=== PATIENT | female | born 1930 | race Caucasian/White ===

== ENCOUNTER 2016-12-11 20:00 | Inpatient (IN) | payer MEDICARE ==
[~2016-12-11] VITALS: Ht 152.4 cm; Wt 51.7 kg
[~2016-12-11 20:00] MED LIST: *MAMMOGRAM; /METO5T; /METO5T PO; /MOXI40TA; /PANT40TA; /PANT40TA PO; /RISE35TA; /SUCR1TA OR; /WARF25TA; /WARF25TA PO; /WARF3TA; /WARF3TA PO; /WARF4TA; /WARF5TA; /WARF5TA OR; ACCUPRIL20 PO; ACEON; ACET65TA OR; ACTONEL35 PO; ALPR0.5T3; AMO500 PO; ASPEC325 PO; ASPI325T; ASTELIN; ASTELIN NASAL; ASTELIN NASAL SPRAY; ATEN100T; ATEN25TA; ATENOL25 PO; AVAPRO150 PO; AVAPRO75 PO; AVELOX PO; CALC500T49; CALCCHW12; CARD90TA; CIPR500T19; COLA100C2 OR; DEMA20TA; DIGO0.126; DOXYCYC100 PO; DRIS1CAP PO; DYAZIDE PO; ERYTHROOPT; FERR325T3 PO; FURO40TA2 OR; GAS-80CH PO; HCTZ50 PO; HYDR25TA6; LANO0.1211; LASI40TA; LASI40TA PO; LASI80TA OR; LEVO25TABR; LIPI20TA; LIPITOR20 PO; LOPID600 PO; MAG-TAB; MAGNESIUM OXIDE PO; NASONEX NASAL; NIAS750T3; NIASPAN500 PO; OSCAL600 PO; PHOSLO667 MG PO; POTA-77 PO; POTA10CA2 OR; POTA20TA PO; POTA20TA2; POTASSIUM; PRIL40CA OR; PROL60SO SC; SPIR50TA2 OR; SYNT50TA; SYNT50TA PO; SYNTHRO025 PO; SYNTHROI05 PO; TENO50TA; TESSALO100 PO; TORS20TA2; TRICOR160 PO; VITA100027; VITAMIN B-12 PO; XANA0.5T PO; [UNRECOGNIZED DRUG - CODE] PO; [UNRECOGNIZED DRUG - CODE] PO; astelin
[2016-12-11] MEDS ORDERED: METOCLOPRAMIDE INJ 10MG/2ML VIAL (J2765) As Ordered ONE (20:49)
[2016-12-11] MEDS ORDERED: MORPHINE 2 MG/ML 1ML SYRINGE As Ordered ONE (20:50)
[2016-12-11 21:04] LABS: BASO % 0.2 % (0.0-1.0); EOS # 0.1 K/mm3 (0.0-0.50); EOS % 0.6 % (0.0-3.0); LARGE UNSTAINED CELL # 0.1 K/mm3 (0.0-0.4); LARGE UNSTAINED CELL % 1.4 % (0.0-4.0); LYMPH # 1.4 K/mm3 (1.5-4.5); LYMPH % 13.7 % (24.0-44.0); MEAN CORPUSCULAR HGB CONC 32.9 g/dl (32.0-36.5); MEAN CORPUSCULAR VOLUME 97.2 fl (80.0-96.0); MONO # 0.4 K/mm3 (0.0-0.8); NEUTROPHILS % 80.1 % (36.0-66.0); PLATELET COUNT, AUTOMATED 293 k/mm3 (150-450); RED CELL DISTRIBUTION WIDTH 13.5 % (11.5-14.5); WHITE BLOOD COUNT 9.9 K/mm3 (4.0-10.0)
[2016-12-11 21:05] LABS: INR 3.17
[2016-12-11 21:26] LABS: ALBUMIN 4.2 GM/DL (3.2-5.2); ALBUMIN/GLOBULIN RATIO 0.76 (1.00-1.93); BILIRUBIN,DIRECT 0.2 MG/DL (0.0-0.2); BILIRUBIN,TOTAL 0.7 MG/DL (0.2-1.0); CALCIUM LEVEL 10.7 MG/DL (8.8-10.2); CREATININE FOR GFR 1.9 MG/DL (0.55-1.02); GLOMERULAR FILTRATION RATE 26.6 (>32); POTASSIUM SERUM 4.5 MEQ/L (3.5-5.1); TOTAL PROTEIN 9.7 GM/DL (6.4-8.2)
[2016-12-11] MEDS ORDERED: ONDANSETRON 4MG/2ML VIAL (J2405) As Ordered ONE (22:00)
[2016-12-11 23:53] LABS: CALCIUM LEVEL 8.8 MG/DL (8.8-10.2); CREATININE FOR GFR 1.68 MG/DL (0.55-1.02); GLOMERULAR FILTRATION RATE 30.6 (>32); POTASSIUM SERUM 4.8 MEQ/L (3.5-5.1)
[2016-12-12] MEDS ORDERED: ISOVUE-370 76% 100ML VIAL (Q9967) As Ordered ONE (00:12)
--- NOTE | 2016-12-12 02:00 | REPUSA ---
CLINICAL HISTORY: Abdominal pain. TECHNIQUE: Multiple axial, sagittal and coronal CT images were obtained through the abdomen and pelvi s after administration of oral and intravenous contrast material. Images were obtained before and aft er IV contrast administration. COMMENTS: The liver is of uniform attenuation without mass or defect. There is pneumobilia. There is mild bilia ry ductal dilatation. The spleen is normal. The gallbladder is surgically absent. The pancreas is of normal contour and attenuation characteristics. There is no evidence of adrenal mass. Bilateral renal cysts with the largest measuring 4.6 cm on the right side. Both kidneys demonstrate prompt and equal nephrograms. The kidneys are normal in size, shape and conf iguration. There is no evidence of renal or ureteral mass. No renal or ureteral calculi are identifie d. There is no hydroureter or hydronephrosis. No evidence for appendicitis. There is mild ascites. 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 There is no evidence of intrinsic or extrinsic bladder mass. Moderate partial small bowel obstruction . Swirling of the mesentery in the right lower quadrant at the level of the transition zone in the di stal ileum. Uncomplicated clonic diverticulosis. Images of the lung bases show no evidence of pleural or parenchymal mass. There are no pleural effusi ons.moderate cardiomegaly. Bilateral basilar groundglass densities of the lungs. Pacemaker wires are in good position. The bony structures are free of lytic or blastic lesions. Multilevel degenerative c hanges are seen involving the thoracolumbar spine. Scattered calcifications are seen involving the ao rta and major branches compatible with atherosclerosis. Chronic benign sacral nerve root cysts are no paulette the largest measuring 3.2 cm. IMPRESSION: Moderate partial small bowel obstruction. Transition zone at the level of the terminal ileum. Swirling of the mesentery in the right lower quadrant at the level of the transition zone in the dist al ileum. This is a nonspecific finding that can be secondary to an internal hernia. This needs a zoe gical consultation. No associated bowel perforation or pneumatosis intestinalis. Mildly dilated biliary tree. Pneumobilia. Cholecystectomy. Basilar ground glass densities of the lungs. Atelectasis verses multifocal basilar aspiration pneumon ia. Congestive heart failure. Small amount of free fluid in the pelvis. Renal cysts. 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 Thank you for your kind referral of this patient.
[2016-12-12] MEDS ORDERED: OMEP40CA2 PO (03:09)
[2016-12-12] MEDS ORDERED: WARF-60 PO (03:09)
[2016-12-12] MEDS ORDERED: POTA10CA PO (03:09)
[2016-12-12] MEDS ORDERED: SPIR50TA2 PO (03:09)
[2016-12-12] MEDS ORDERED: SYNT75TA PO (03:09)
[2016-12-12] MEDS ORDERED: WARF-58 PO (03:09)
[2016-12-12] MEDS ORDERED: VITA10002 PO (03:09)
[2016-12-12] MEDS ORDERED: CALC1TAB30 PO (03:09)
[2016-12-12] MEDS ORDERED: VITA50003 PO (03:09)
[2016-12-12] MEDS ORDERED: FURO40TA2 PO (03:09)
[2016-12-12] MEDS ORDERED: SUCR1TAB56 PO (03:09)
[2016-12-12] MEDS ORDERED: MAGN400T2 PO (03:09)
[2016-12-12] MEDS: LR 1,000 ML IV SCH ×3 (03:15→23:15)
[2016-12-12 03:22] VITALS: BP 161/75
--- NOTE | 2016-12-12 03:36 | CR.PDOC ---
[facility] Consultation Consultation CONSULTING DOCTOR: Dr. Loya REASON FOR CONSULT: Medical management HISTORY OF PRESENT ILLNESS: Patient is a 86-year-old female who presented to emergency department with complaint of abdominal pain since yesterday afternoon and vomiting since yesterday evening. Patient states that abdominal pain is located across the bottom of her abdomen. She came into the ER due to continued pain and vomiting. She denies any bright red or dark coffee-ground hematemesis. She was found to have small bowel obstruction and medical team was consulted by general surgery for medical management. ALLERGIES: None CURRENT MEDICATIONS: Calcium with vitamin D 1 tablet daily Vitamin B12 thousand micrograms by mouth daily Vitamin D 5000 units once weekly Lasix 40 mg by mouth twice a day Synthroid 75 mcg by mouth daily Magnesium oxide 400 mg by mouth daily Omeprazole 40 mg by mouth daily Potassium chloride 20 meqs by mouth twice a day Spironolactone 50 mg by mouth daily Carafate 1 g by mouth daily at bedtime, every before meals Warfarin 6 mg Friday and Friday, 3 mg Friday, , Friday, Friday, Friday PAST MEDICAL HISTORY: Atrial fibrillation, hypercholesterolemia, hypertension, CVA, congestive heart failure PAST SURGICAL HISTORY: Hysterectomy, cataract surgery, pacemaker insertion, cardiac stents SOCIAL HISTORY: Patient denies any tobacco or alcohol use REVIEW OF SYSTEMS: Constitutional: denies fevers, chills, night sweats HEENT: Head: Positive for headaches and dizziness. Eyes: denies blurry vision, double vision. Ears: Positive for chronic severe hearing loss. Nose: denies sinus pain, pressure, rhinorrhea, postnasal drip. Throat: denies sore throat, cough, difficulty swallowing Cardiovascular: denies chest discomfort/pain Respiratory: denies shortness of breath, difficulty breathing Gastrointestinal: Positive for abdominal pain, vomiting, constipation : denies dysuria, hematuria Musculoskeletal: denies muscle / joint stiffness, pain, swelling Neurological: denies numbness, tingling, paresthesias Lymphatics: denies palpable lymph nodes or swollen glands Integumentary: denies any cuts, rashes, bruises PHYSICAL EXAMINATION: Vitals: Temperature 9 7.6, pulse 78, respiratory rate 18, blood pressure 138/63 , pulse ox 95% on room air General: Patient extremely hard of hearing. She is verbal and able to answer questions appropriately. She does not appear to be in any acute distress HEENT: Head: NG tube in place, normocephalic, atraumatic.. Eyes: pupils equally reactive to light, conjunctiva are pink, sclera are nonicteric. Throat : buccal mucosa is pink and moist with no lesions in the oropharynx Respiratory: clear to auscultation bilaterally with no wheezes, rales, or rhonchi. Cardiovascular: Regular rate and rhythm. 3/6 systolic murmur best heard at left lower sternal border Abdomen: Active bowel sounds, distended, diffuse tenderness to palpation Extremities: 5/5 strength in upper and lower extremities bilaterally, no swelling in either lower extremity bilaterally Neurological: sensation intact and symmetrical in upper and lower extremities bilaterally Lymphatics: no palpable lymph nodes, swollen glands Integumentary: skin free from rashes, lesions, abrasions Vascular: pulses palpable and symmetrical in upper and lower extremities bilaterally LABORATORY DATA: CBC: White blood cells 9.9, H&H 17.5/35.1, platelets 293 Chemistry: Sodium 137, potassium 4.8, chloride 100, carbon dioxide 26, BUN 46, creatinine 1.68, glucose 129, calcium 8.8 Lactic acid: At 20:47 2.6, at 23:15 1.5, at 01:16 1.6 Coagulation: PT 32.5, INR 3.17, aPTT 51.9 RADIOLOGY: CT of abdomen and pelvis: Moderate partial small bowel obstruction with transition zone at level of terminal ileum. No associated bowel perforation or pneumatosis intestinalis. Congestive heart failure. ASSESSMENT: Patient is a 86-year-old female with small bowel obstruction seen for medical management consult, patient currently has NG tube in place. PLAN: #1: Small bowel obstruction: Plan as per Dr. Loya. #2: Atrial fibrillation: INR of 3.17, patient is nothing by mouth, hold warfarin #3: Hypertension: Patient currently nothing by mouth, patient currently normotensive. Hold antihypertensives. #4: Hypothyroidism: Patient currently nothing by mouth, order has been placed for IV levothyroxine 32.5 mg #5: Congestive heart failure: Patient currently nothing by mouth, patient currently normotensive. Hold Lasix #6: GERD: Patient nothing by mouth, order placed for IV Protonix 40 mg daily My preceptor for this patient encounter was physically present in the building during the encounter and was fully available. As needed, all aspects of the patient interview, examination, medical decision making process, and medical care plan development were reviewed and approved by the preceptor. Preceptor is aware and concurs with the plan as stated in the body of this note and will attest to such by his/her cosignature. Attending Note: I have independently examined this patient and all aspects of the exam and treatment decisions have been discussed with the resident. A member of the hospitalist staff will continue to follow this patient through discharge. Allergies Coded Allergies: No Known Allergies (Verified Allergy, Unknown, 06/05/08) Home Medications Scheduled (Calcium 500+D 500-200 mg-Unit) 1 Tab Tab 1 TAB PO DAILY (Reported) Cyanocobalamin (Vitamin B-12) 1,000 Mcg Tab 1,000 MCG PO DAILY (Reported) Ergocalciferol (Vitamin D) 50,000 Unit Cap 50,000 UNIT PO 1XWK (Reported) Furosemide (Furosemide) 40 Mg Tab 40 MG PO BID (Reported) Levothyroxine Sodium (Synthroid) 75 Mcg Tab 75 MCG PO DAILY (Reported) Magnesium Oxide (Magnesium Oxide) 400 Mg Tab 400 MG PO DAILY (Reported) Omeprazole (Omeprazole) 40 Mg Cap 40 MG PO DAILY (Reported) Potassium Chloride (Klor-Con M10) 10 Meq Tabcr 20 MEQ PO BID (Reported) Spironolactone (Spironolactone) 50 Mg Tab 50 MG PO DAILY (Reported) Sucralfate (Sucralfate) 1 Gm Tab 1 GM PO ACHS (Reported) Warfarin Sod (Warfarin Sodium) 6 Mg Tab 6 MG PO 2XW (Reported) MONDAYS AND WEDNESDAYS Warfarin Sod (Warfarin Sodium) 3 Mg Tab 3 MG PO 5XW (Reported) FRIDAY, FRIDAY, FRIDAY, FRIDAY, FRIDAY TAMIKO MACDONALD DO Dec 12, 2016 03:36 SHAGUFTA HERBERT DO Dec 12, 2016 18:50
[2016-12-12 07:48] LABS: MEAN CORPUSCULAR HEMOGLOBIN 32.6 pg (27.0-33.0); MEAN CORPUSCULAR HGB CONC 32.7 g/dl (32.0-36.5); MEAN CORPUSCULAR VOLUME 99.8 fl (80.0-96.0); WHITE BLOOD COUNT 8.2 K/mm3 (4.0-10.0)
[2016-12-12 08:00] VITALS: BP 150/70
[2016-12-12 08:57] LABS: ALBUMIN 3.3 GM/DL (3.2-5.2); ALBUMIN/GLOBULIN RATIO 0.72 (1.00-1.93); BILIRUBIN,TOTAL 0.6 MG/DL (0.2-1.0); CALCIUM LEVEL 9.6 MG/DL (8.8-10.2); CREATININE FOR GFR 1.68 MG/DL (0.55-1.02); GLOMERULAR FILTRATION RATE 30.6 (>32); POTASSIUM SERUM 4.8 MEQ/L (3.5-5.1); TOTAL PROTEIN 7.9 GM/DL (6.4-8.2)
[2016-12-12] MEDS ORDERED: WARFARIN SOD 3 MG TAB PO SCH (09:00)
[2016-12-12] MEDS: LEVOTHYROXINE 100 MCG (0.1MG) VIAL IV SCH (10:03)
[2016-12-12] MEDS: PANTOPRAZOLE 40MG INJ (PROTONIX) (C9113) IV SCH (10:03)
[2016-12-12 11:54] VITALS: BP 128/69
--- NOTE | 2016-12-12 12:32 | EDDOCDS ---
Physician Documentation [facility] Name: Alba Browning Age: 86 yrs Sex: Female : 1930 Arrival Date: 12/11/2016 Time: 20:00 Bed Admit Hold Private MD: Adrián Moser Disposition: 12/12/16 02:24 Hospitalization ordered by Stephane Loya for Inpatient Admission. Preliminary diagnosis are Other intestinal obstruction, Dehydration, Vomiting. - Bed requested for 5 [place]ondon. - Status is Inpatient Admission. deg - Condition is Stable. - Problem is new. - Symptoms have improved. Historical: - Home Meds: 1. omeprazole 40 mg Oral cpDR 1 cap once daily 2. levothyroxine 75 mcg Oral tab 1 tab once daily 3. sucralfate 1 gram Oral tab 1 tab 4 times per day 4. magnesium oxide 400 mg Oral tab 5. calcium 6. vit B 12 1,000 mcg daily 7. vit D2 1.25 mg weekly 8. spironolactone 50 mg Oral tab 1 tab once daily 9. furosemide 40 mg Oral tab 1 tab 2 times per day 10. potassium chloride 20 mEq Oral TbER 1 tab 2 times per day 11. warfarin 3 mg oral tab one 3 mg tablet friday and friday then 1.5 tabs the rest of the week - PMHx: Atrial Fib; Hypercholesterolemia; Hypertension; CVA; CHF; - PSHx: Hysterectomy; Cataract Surgery- Bilateral; Pacemaker Insertion; Cardiac stents; - Social history: Smoking status: Patient states was never smoker of tobacco. Patient is hearing impaired. - : The pt / caregiver states he / she is on anticoagulants: coumadin. Home medication list is obtained from pill bottles. - Exposure Risk Screening:: None identified. Vital Signs: 12/11 20:10 BP 172 / 81 (auto/); kas2 20:13 Pulse 86 MON; Pulse Ox 100% ; kas2 20:15 BP 172 / 81; Pulse 87; Resp 20; Temp 98.1(T); Pulse Ox 100% on R/A; Weight 51.71 kg / kas2 114 lbs; Height 5 ft. 0 in. (152.40 cm); Pain 5/10; 20:55 BP 165 / 74 (auto/); kas2 20:55 Pulse 82 MON; Pulse Ox 100% ; kas2 20:58 BP 157 / 79 (auto/); kas2 20:58 Pulse 78 MON; Pulse Ox 100% ; kas2 21:10 BP 157 / 71 (auto/); kas2 21:10 Pulse 86 MON; Pulse Ox 100% ; kas2 21:25 BP 152 / 71 (auto/); kas2 21:25 Pulse 80 MON; Pulse Ox 100% ; kas2 21:26 BP 106 / 65 (auto/); kas2 21:27 Pulse 78 MON; Pulse Ox 100% ; kas2 21:40 BP 151 / 73 (auto/); kas2 21:40 Pulse 80 MON; Pulse Ox 100% ; kas2 21:43 BP 151 / 73; Pulse 85; Resp 20; Pulse Ox 100% on R/A; Pain 2/10; kas2 21:55 BP 173 / 82 (auto/); kas2 21:55 Pulse 86 MON; Pulse Ox 99% ; kas2 22:10 BP 165 / 82 (auto/); kas2 22:10 Pulse 80 MON; Pulse Ox 99% ; kas2 22:16 BP 131 / 74 (auto/); kas2 22:17 Pulse 88 MON; Pulse Ox 97% ; kas2 22:24 Resp 20; Temp 98.0(O); Pulse Ox 100% on R/A; Pain 2/10; kas2 22:25 BP 172 / 84 (auto/); kas2 22:25 Pulse 86 MON; Pulse Ox 97% ; kas2 22:33 BP 170 / 82 (auto/); kas2 22:33 Pulse 86 MON; Pulse Ox 99% ; kas2 22:40 BP 172 / 84 (auto/); kas2 22:40 Pulse 84 MON; Pulse Ox 100% ; kas2 22:55 BP 179 / 83 (auto/); kas2 22:55 Pulse 78 MON; Pulse Ox 99% ; kas2 23:09 Pulse 82 MON; Pulse Ox 99% ; kas2 23:10 BP 171 / 82 (auto/); kas2 23:18 BP 171 / 77 (auto/); kas2 23:18 Pulse 82 MON; Pulse Ox 97% ; kas2 23:25 BP 164 / 77 (auto/); kas2 23:25 Pulse 80 MON; Pulse Ox 100% ; kas2 23:40 BP 162 / 71 (auto/); kas2 23:40 Pulse 80 MON; Pulse Ox 99% ; kas2 23:55 BP 154 / 72 (auto/); kas2 23:55 Pulse 74 MON; Pulse Ox 98% ; kas2 12/12 00:10 BP 150 / 70 (auto/); kas2 00:10 Pulse 82 MON; Pulse Ox 99% ; kas2 00:25 BP 155 / 80 (auto/); kas2 00:25 Pulse 86 MON; Pulse Ox 92% ; kas2 00:40 BP 153 / 73 (auto/); kas2 00:40 Pulse 82 MON; Pulse Ox 98% ; kas2 00:40 Resp 18; Temp 97.6(O); kas2 00:55 BP 161 / 76 (auto/); kas2 00:55 Pulse 82 MON; Pulse Ox 97% ; kas2 01:10 BP 151 / 69 (auto/); kas2 01:10 Pulse 80 MON; Pulse Ox 97% ; kas2 01:25 BP 162 / 76 (auto/); kas2 01:25 Pulse 80 MON; Pulse Ox 98% ; kas2 01:40 BP 150 / 72 (auto/); kas2 01:40 Pulse 76 MON; Pulse Ox 97% ; kas2 01:55 BP 138 / 64 (auto/); kas2 01:55 Pulse 80 MON; Pulse Ox 94% ; kas2 02:10 BP 138 / 63 (auto/); kas2 02:10 Pulse 78 MON; Pulse Ox 95% ; kas2 02:27 Resp 18; Temp 97.6(TE); Pain 0/10; kas2 12/11 20:15 Body Mass Index 22.26 (51.71 kg, 152.40 cm) [facility] MDM: 12/11 20:31 IV Saline Lock ordered. cs11 20:31 NS 0.9% 1000 ml IV at 150 mL/hr continuous ordered. cs11 20:32 morphine 2 mg IVP once ordered. cs11 20:32 Metoclopramide 10 mg IV at 40 mg/hr once over 15 mins ordered. cs11 20:33 CBC with Diff Ordered. EDMS 20:33 MED Profile Ordered. EDMS 20:33 Liver Profile Ordered. EDMS 20:33 Amylase Ordered. EDMS 20:33 Lipase Ordered. EDMS 20:33 Lactic Acid (Au tube on ice) Ordered. EDMS 20:33 Pt & Aptt Ordered. EDMS 21:04 Financial registration complete. gjb 21:13 CBC with Diff Reviewed. cs11 21:13 Pt & Aptt Reviewed. cs11 21:15 [facility] [place] was scanned into [employer] and attached to record. gjb 21:50 MED Profile Reviewed. cs11 21:50 Liver Profile Reviewed. cs11 21:50 Amylase Reviewed. cs11 21:50 Lactic Acid (Au tube on ice) Reviewed. cs11 21:50 Lipase Reviewed. cs11 21:51 NS 0.9% 1000 ml IV at bolus once ordered. cs11 21:58 Ondansetron 8 mg IVP once ordered. cs11 23:05 MED Profile Ordered. EDMS 23:05 Lactic Acid (Au tube on ice) Ordered. EDMS 0216 00:04 MED Profile Reviewed. cs11 00:04 Lactic Acid (Au tube on ice) Reviewed. cs11 00:05 NS 0.9% 500 ml IV at bolus once ordered. cs11 00:07 CT ABD & PELVIS: IV Contrast Only Ordered. EDMS 00:29 NG/OG Tube 18Fr to L.I.S. with hourly monitoring for placement ordered. cs11 02:15 BED REQUEST+ADM ordered. EDMS 02:30 Admission Orders was scanned into [employer] and attached to record. hs2 02:41 Admission Orders was scanned into [employer] and attached to record. kb5 03:05 Admission / Observation Status ordered. EDMS 03:05 NPO DIET ordered. EDMS 06:36 COMPLETE BLOOD COUNT Ordered. EDMS 06:36 COMPLETE COMPHRENSIVE METABOLI Ordered. EDMS 08:43 Admission / Observation Status ordered. EDMS Administered Medications: 12/11 20:59 Drug: NS 0.9% 1000 ml [sodium chloride 0.9 % intravenous solution] Route: IV; Rate: 150 kas2 mL/hr; Site: left antecubital; 20:59 Drug: morphine 2 mg [morphine 2 mg/mL intravenous cartridge (1 mL)] Route: IVP; Site: [facility] left antecubital; 21:43 Follow up: BP 151 / 73; Pulse 85 bpm; Resp 20 bpm; Pulse Ox 100% RA; Pain 2/10 Adult; kas2 Response: No Adverse Reaction; Pain is decreased 20:59 Drug: Metoclopramide 10 mg [metoclopramide 5 mg/mL injection solution] Route: IV; Rate: kas2 40 mg/hr; Infused Over: 15 mins; Site: left antecubital; 21:56 Drug: NS 0.9% 1000 ml [sodium chloride 0.9 % intravenous solution] Route: IV; Rate: kas2 bolus; Site: left antecubital; 23:17 Follow up: IV Status: Completed infusion; IV Intake: 1000ml kas2 22:06 Drug: Ondansetron 8 mg [ondansetron HCl 2 mg/mL intravenous solution (3.75 mL)] Route: kas2 IVP; Site: left antecubital; 12/12 00:26 Drug: NS 0.9% 500 ml [sodium chloride 0.9 % intravenous solution] Route: IV; Rate: kas2 bolus; Site: left antecubital; 03:21 Follow up: IV Status: Completed infusion; IV Intake: 500ml kas2 Signatures: Dispatcher [employer] EDMS Mara Green, Vp [employer] [place] Unit deg Rm Mendoza, NATURAL RESOURCES MANAGER NATURAL RESOURCES MANAGER kb5 Cristian Ramirez, DO cs11 Nitza Schneider b Joya Foster, Reg Reg hs2 Ayana Urias RN RN [facility] Ray Braun RN RN The chart was reviewed and I authenticate all verbal orders and agree with the evaluation and treatment provided.Attachments: 12/11 21:15 [facility] Payment Agreement [facility] 12/12 02:30 Admission Orders hs2 02:41 Admission Orders kb5 MTDD
--- NOTE | 2016-12-12 12:32 | EDDOCDS ---
Nurse's Notes [facility] Name: Alba Browning Age: 86 yrs Sex: Female : 1930 Arrival Date: 12/11/2016 Time: 20:00 Bed Admit Hold Private MD: Adrián Moser Diagnosis: Other intestinal obstruction;Dehydration;Vomiting Presentation: 12/11 20:02 Presenting complaint: EMS states: Patient complaining of abdominal pain with vomiting kas2 since this morning. Loose stools since this morning. Denies chest pain or shortness of breath. FSBS 122 mg/dL. Adult Sepsis Screening: The patient does not have new or worsening altered mentation. Patient's respiratory rate is less than 22. Systolic blood pressure is greater than 100. Patient has a qSOFA score of 0- Negative Sepsis Screen. Suicide/Homicide risk assessment- the patient denies having any suicidal and/or homicidal ideations and does not present with any other emotional, behavioral or mental health complaints. Status: Patient is not a service desk lead or dependent. Transition of care: patient was not received from another setting of care. 20:02 Acuity: CHELSIE Level 3 kas2 20:02 Method Of Arrival: Ambulance [facility] Triage Assessment: 20:15 General: Appears in no apparent distress, comfortable, well nourished, well groomed, kas2 Behavior is appropriate for age, cooperative. Pain: Location: abdomen Pain currently is 5 out of 10 on a pain scale. Neurological: Level of Consciousness is awake, alert, Oriented to person, place, time. Cardiovascular: Capillary refill is > 3 seconds Heart tones S1 S2 present Rhythm is Chest pain is denied. Respiratory: Airway is patent Respiratory effort is even, unlabored, Respiratory pattern is regular, symmetrical, Breath sounds are diminished bilaterally. GI: Abdomen is distended, Bowel sounds hypoactive in right upper quadrant, left upper quadrant, right lower quadrant and left lower quadrant Abd is tender to palpation X 4 quads. Reports nausea, vomiting. Derm: Skin is intact, Skin is dry, Skin is pink, warm & dry. Skin temperature is warm. Historical: - Home Meds: 1. omeprazole 40 mg Oral cpDR 1 cap once daily 2. levothyroxine 75 mcg Oral tab 1 tab once daily 3. sucralfate 1 gram Oral tab 1 tab 4 times per day 4. magnesium oxide 400 mg Oral tab 5. calcium 6. vit B 12 1,000 mcg daily 7. vit D2 1.25 mg weekly 8. spironolactone 50 mg Oral tab 1 tab once daily 9. furosemide 40 mg Oral tab 1 tab 2 times per day 10. potassium chloride 20 mEq Oral TbER 1 tab 2 times per day 11. warfarin 3 mg oral tab one 3 mg tablet friday and friday then 1.5 tabs the rest of the week - PMHx: Atrial Fib; Hypercholesterolemia; Hypertension; CVA; CHF; - PSHx: Hysterectomy; Cataract Surgery- Bilateral; Pacemaker Insertion; Cardiac stents; - Social history: Smoking status: Patient states was never smoker of tobacco. Patient is hearing impaired. - : The pt / caregiver states he / she is on anticoagulants: coumadin. Home medication list is obtained from pill bottles. - Exposure Risk Screening:: None identified. Screenin:19 Screening information is obtained from the patient. Fall risk: At risk due to age. kas2 Assistance ADL's: requires no assistance with activities of daily living. Abuse/DV Screen: The patient / caregiver reports he/she is: not in a situation that causes fear, pain or injury. Nutritional screening: No deficits noted. Advance Directives: Currently, there is a health care proxy, Massiel Wen. There is no active DNR order. There is no living will. There is no Power of Hair Assistant. home support is adequate. Assessment: 20:19 General: See triage note.. kas2 21:30 General: Appears in no apparent distress, comfortable, Behavior is appropriate for age, kas2 cooperative. Pain: Location: left lower quadrant and right lower quadrant and left upper quadrant and right upper quadrant Pain currently is 2 out of 10 on a pain scale. Neurological: Level of Consciousness is awake, alert, Oriented to person, place, time. Cardiovascular: Rhythm is sinus rhythm No ectopy. Respiratory: Airway is patent Respiratory effort is even, unlabored, Respiratory pattern is regular, symmetrical. Derm: Skin is intact, Skin is dry, Skin is pink, warm & dry. Skin temperature is warm. 21:55 General: Patient vomited small amount of bile like emesis. States abdominal pain is kas2 2/10. Dr. Ramirez aware.. 23:17 General: Appears in no apparent distress, comfortable, Behavior is appropriate for age, kas2 cooperative. Pain: Denies pain. Neurological: Level of Consciousness is awake, alert, Oriented to person, place, time. Cardiovascular: Rhythm is sinus rhythm No ectopy. Respiratory: Airway is patent Respiratory effort is even, unlabored, Respiratory pattern is regular, symmetrical. Derm: Skin is intact, Skin is dry, Skin is pink, warm & dry. Skin temperature is warm. 12/12 00:26 General: Appears in no apparent distress, comfortable, Behavior is appropriate for age, kas2 cooperative. Pain: Location: left lower quadrant and right lower quadrant and left upper quadrant and right upper quadrant Pain currently is 3 out of 10 on a pain scale. Neurological: Level of Consciousness is awake, alert, Oriented to person, place, time. Cardiovascular: Rhythm is sinus rhythm No ectopy. Respiratory: Airway is patent Respiratory effort is even, unlabored, Respiratory pattern is regular, symmetrical. Derm: Skin is intact, Skin is dry, Skin is pink, warm & dry. Skin temperature is warm. 01:28 General: Patient laying in bed with family at bedside. No apparent distress noted. kas2 Appears comfortable. Airway patent and respiratory even and unlabored. Call marques within reach. Will continue to monitor.. 02:26 General: Appears in no apparent distress, comfortable, Behavior is appropriate for age, kas2 cooperative. Pain: Denies pain. Neurological: Level of Consciousness is awake, alert, Oriented to person, place, time. Cardiovascular: Rhythm is sinus rhythm No ectopy. Respiratory: Airway is patent Respiratory effort is even, unlabored, Respiratory pattern is regular, symmetrical. Derm: Skin is intact, Skin is dry, Skin is pink, warm & dry. Skin temperature is warm. 03:20 General: Verbal report given to Ayana Danielle RN. Patient moved to Room 21.. kas2 Vital Signs: 12/11 20:10 BP 172 / 81 (auto/); kas2 20:13 Pulse 86 MON; Pulse Ox 100% ; kas2 20:15 BP 172 / 81; Pulse 87; Resp 20; Temp 98.1(T); Pulse Ox 100% on R/A; Weight 51.71 kg; kas2 Height 5 ft. 0 in. (152.40 cm); Pain 5/10; 20:55 BP 165 / 74 (auto/); kas2 20:55 Pulse 82 MON; Pulse Ox 100% ; kas2 20:58 BP 157 / 79 (auto/); kas2 20:58 Pulse 78 MON; Pulse Ox 100% ; kas2 21:10 BP 157 / 71 (auto/); kas2 21:10 Pulse 86 MON; Pulse Ox 100% ; kas2 21:25 BP 152 / 71 (auto/); kas2 21:25 Pulse 80 MON; Pulse Ox 100% ; kas2 21:26 BP 106 / 65 (auto/); kas2 21:27 Pulse 78 MON; Pulse Ox 100% ; kas2 21:40 BP 151 / 73 (auto/); kas2 21:40 Pulse 80 MON; Pulse Ox 100% ; kas2 21:43 BP 151 / 73; Pulse 85; Resp 20; Pulse Ox 100% on R/A; Pain 2/10; kas2 21:55 BP 173 / 82 (auto/); kas2 21:55 Pulse 86 MON; Pulse Ox 99% ; kas2 22:10 BP 165 / 82 (auto/); kas2 22:10 Pulse 80 MON; Pulse Ox 99% ; kas2 22:16 BP 131 / 74 (auto/); kas2 22:17 Pulse 88 MON; Pulse Ox 97% ; kas2 22:24 Resp 20; Temp 98.0(O); Pulse Ox 100% on R/A; Pain 2/10; kas2 22:25 BP 172 / 84 (auto/); kas2 22:25 Pulse 86 MON; Pulse Ox 97% ; kas2 22:33 BP 170 / 82 (auto/); kas2 22:33 Pulse 86 MON; Pulse Ox 99% ; kas2 22:40 BP 172 / 84 (auto/); kas2 22:40 Pulse 84 MON; Pulse Ox 100% ; kas2 22:55 BP 179 / 83 (auto/); kas2 22:55 Pulse 78 MON; Pulse Ox 99% ; kas2 23:09 Pulse 82 MON; Pulse Ox 99% ; kas2 23:10 BP 171 / 82 (auto/); kas2 23:18 BP 171 / 77 (auto/); kas2 23:18 Pulse 82 MON; Pulse Ox 97% ; kas2 23:25 BP 164 / 77 (auto/); kas2 23:25 Pulse 80 MON; Pulse Ox 100% ; kas2 23:40 BP 162 / 71 (auto/); kas2 23:40 Pulse 80 MON; Pulse Ox 99% ; kas2 23:55 BP 154 / 72 (auto/); kas2 23:55 Pulse 74 MON; Pulse Ox 98% ; kas2 02 00:10 BP 150 / 70 (auto/); kas2 00:10 Pulse 82 MON; Pulse Ox 99% ; kas2 00:25 BP 155 / 80 (auto/); kas2 00:25 Pulse 86 MON; Pulse Ox 92% ; kas2 00:40 BP 153 / 73 (auto/); kas2 00:40 Pulse 82 MON; Pulse Ox 98% ; kas2 00:40 Resp 18; Temp 97.6(O); kas2 00:55 BP 161 / 76 (auto/); kas2 00:55 Pulse 82 MON; Pulse Ox 97% ; kas2 01:10 BP 151 / 69 (auto/); kas2 01:10 Pulse 80 MON; Pulse Ox 97% ; kas2 01:25 BP 162 / 76 (auto/); kas2 01:25 Pulse 80 MON; Pulse Ox 98% ; kas2 01:40 BP 150 / 72 (auto/); kas2 01:40 Pulse 76 MON; Pulse Ox 97% ; kas2 01:55 BP 138 / 64 (auto/); kas2 01:55 Pulse 80 MON; Pulse Ox 94% ; kas2 02:10 BP 138 / 63 (auto/); kas2 02:10 Pulse 78 MON; Pulse Ox 95% ; kas2 02:27 Resp 18; Temp 97.6(TE); Pain 0/10; kas2 12/11 20:15 Body Mass Index 22.26 (51.71 kg, 152.40 cm) [facility] Vitals: 12/11 20:15 Log In Time N/A - ambulance arrival. [facility] ED Course: 20:01 Patient visited by Rm Mendoza PCA. kb5 20:01 Adrián Moser MD is Private Physician. kb5 20:01 Ayana UriasRN is Primary Nurse. kb5 20:01 Patient moved to Waiting kb5 20:01 Patient moved to 9 kb5 20:06 Triage Initiated kas2 20:12 Cristian Ramirez DO is Attending Physician. cs11 20:12 Patient visited by Cristian Ramirez DO. cs11 20:20 Patient visited by Ayana Urias RN. [facility] 20:50 property assessment monitor on. Pulse ox on. NIBP on. kas2 21:02 Inserted saline lock: 20 gauge in left antecubital area and blood collected. The kas2 patient tolerated the procedure well. No procedures done that require assistance. 21:10 Patient visited by Ayana Urias RN. kas2 21:15 [facility] Payment Agreement was scanned into [employer] and attached to record. gjb 21:45 Patient visited by Ayana Urias RN. kas2 22:20 Patient visited by Ayana Urias RN. kas2 22:24 Patient visited by Ayana Urias RN. kas2 23:02 Patient visited by Ayana Urias RN. kas2 23:17 Lactic Acid (Au tube on ice) Sent. kas2 23:17 MED Profile Sent. kas2 23:20 Patient visited by Ayana Urias RN. kas2 23:50 Patient visited by Ayana Urias RN. [facility] 0216 00:27 Patient visited by Ayana Urias RN. kas2 01:00 Patient visited by Ayana Urias RN. [facility] 01:27 NGT inserted 14 Fr. via right nare. Placement verified. Returned gastric contents. to [facility] intermittent suction. Returned gastric contents. Patient tolerated well. 01:30 Patient visited by Ayana Urias RN. kas2 02:07 Patient visited by Ayana Urias RN. [facility] 02:23 Stephane Loya DO is Hospitalizing Provider. cs11 02:30 Admission Orders was scanned into [employer] and attached to record. hs2 02:31 CT ABD & PELVIS: IV Contrast Only Returned. EDMS 02:41 Admission Orders was scanned into [employer] and attached to record. kb5 03:21 Patient visited by Ayana Urias RN. kas2 03:21 Patient moved to 21 kas2 06:14 Patient moved to Admit Hold sls1 07:24 Primary Nurse role handed off by Ayana Urias RN mcp Administered Medications: 12/11 20:59 Drug: NS 0.9% 1000 ml [sodium chloride 0.9 % intravenous solution] Route: IV; Rate: 150 kas2 mL/hr; Site: left antecubital; 20:59 Drug: morphine 2 mg [morphine 2 mg/mL intravenous cartridge (1 mL)] Route: IVP; Site: [facility] left antecubital; 21:43 Follow up: BP 151 / 73; Pulse 85 bpm; Resp 20 bpm; Pulse Ox 100% RA; Pain 2/10 Adult; kas2 Response: No Adverse Reaction; Pain is decreased 20:59 Drug: Metoclopramide 10 mg [metoclopramide 5 mg/mL injection solution] Route: IV; Rate: kas2 40 mg/hr; Infused Over: 15 mins; Site: left antecubital; 21:56 Drug: NS 0.9% 1000 ml [sodium chloride 0.9 % intravenous solution] Route: IV; Rate: kas2 bolus; Site: left antecubital; 23:17 Follow up: IV Status: Completed infusion; IV Intake: 1000ml kas2 22:06 Drug: Ondansetron 8 mg [ondansetron HCl 2 mg/mL intravenous solution (3.75 mL)] Route: kas2 IVP; Site: left antecubital; 12/12 00:26 Drug: NS 0.9% 500 ml [sodium chloride 0.9 % intravenous solution] Route: IV; Rate: kas2 bolus; Site: left antecubital; 03:21 Follow up: IV Status: Completed infusion; IV Intake: 500ml kas2 Intake: 12/11 23:17 IV: 1000.00ml; Total: 1000.00ml. kas2 12/12 03:21 IV: 500.00ml; Total: 1500.00ml. kas2 Output: 03:20 Gastric: 600.00ml; Total: 600.00ml. kas2 Order Results: Lab Order: CBC with Diff; SPEC'M 12/11/16 20:47 Test: WHITE BLOOD COUNT; Value: 9.9; Range: 4.0-10.0; Units: K/mm3; Status: F Test: RED BLOOD COUNT; Value: 5.47; Range: 4.00-5.40; Abnormal: Above high normal; Units: M/mm3; Status: F Test: HEMOGLOBIN; Value: 17.5; Range: 12.0-16.0; Abnormal: Above high normal; Units: g/dl; Status: F Test: HEMATOCRIT; Value: 53.1; Range: 36.0-47.0; Abnormal: Above high normal; Units: %; Status: F Test: MEAN CORPUSCULAR VOLUME; Value: 97.2; Range: 80.0-96.0; Abnormal: Above high normal; Units: fl; Status: F Test: MEAN CORPUSCULAR HEMOGLOBIN; Value: 32.0; Range: 27.0-33.0; Units: pg; Status: F Test: MEAN CORPUSCULAR HGB CONC; Value: 32.9; Range: 32.0-36.5; Units: g/dl; Status: F Test: RED CELL DISTRIBUTION WIDTH; Value: 13.5; Range: 11.5-14.5; Units: %; Status: F Test: PLATELET COUNT, AUTOMATED; Value: 293; Range: 150-450; Units: k/mm3; Status: F Test: NEUTROPHILS %; Value: 80.1; Range: 36.0-66.0; Abnormal: Above high normal; Units: %; Status: F Test: LYMPH %; Value: 13.7; Range: 24.0-44.0; Abnormal: Below low normal; Units: %; Status: F Test: MONO %; Value: 4.0; Range: 0.0-5.0; Units: %; Status: F Test: EOS %; Value: 0.6; Range: 0.0-3.0; Units: %; Status: F Test: BASO %; Value: 0.2; Range: 0.0-1.0; Units: %; Status: F Test: LARGE UNSTAINED CELL %; Value: 1.4; Range: 0.0-4.0; Units: %; Status: F Test: NEUTROPHILS #; Value: 8.0; Range: 1.8-7.7; Abnormal: Above high normal; Units: K/mm3; Status: F Test: LYMPH #; Value: 1.4; Range: 1.5-4.5; Abnormal: Below low normal; Units: K/mm3; Status: F Test: MONO #; Value: 0.4; Range: 0.0-0.8; Units: K/mm3; Status: F Test: EOS #; Value: 0.1; Range: 0.0-0.50; Units: K/mm3; Status: F Test: BASO #; Value: 0.0; Range: 0.0-0.2; Units: K/mm3; Status: F Test: LARGE UNSTAINED CELL #; Value: 0.1; Range: 0.0-0.4; Units: K/mm3; Status: F Lab Order: MED Profile; SPEC'M 12/11/16 20:47 Test: GLUCOSE, FASTING; Value: 140; Range: 83-110; Abnormal: Above high normal; Units: MG/DL; Status: F Test: BLOOD UREA NITROGEN; Value: 45; Range: 7-18; Abnormal: Above high normal; Units: MG/DL; Status: F Test: CREATININE FOR GFR; Value: 1.90; Range: 0.55-1.02; Abnormal: Above high normal; Units: MG/DL; Status: F Test: GLOMERULAR FILTRATION RATE; Value: 26.6; Range: >32; Abnormal: Below low normal; Status: F Test: SODIUM LEVEL; Value: 133; Range: 136-145; Abnormal: Below low normal; Units: MEQ/L; Status: F Test: POTASSIUM SERUM; Value: 4.5; Range: 3.5-5.1; Units: MEQ/L; Status: F Test: CHLORIDE LEVEL; Value: 93; Range: 98-107; Abnormal: Below low normal; Units: MEQ/L; Status: F Test: CARBON DIOXIDE LEVEL; Value: 28; Range: 21-32; Units: MEQ/L; Status: F Test: ANION GAP; Value: 12; Range: 8-16; Units: MEQ/L; Status: F Test: CALCIUM LEVEL; Value: 10.7; Range: 8.8-10.2; Abnormal: Above high normal; Units: MG/DL; Status: F Test Note: ; Units are mL/min/1.73 m2 Chronic Kidney Disease Staging per NKF: Stage I & II GFR >=60 Normal to Mildly Decreased Stage III GFR 30-59 Moderately Decreased Stage IV GFR 15-29 Severely Decreased Stage V GFR <15 Very Little GFR Left ESRD GFR <15 on LASTING FLOORWORKER Lab Order: Liver Profile; SPEC'M 12/11/16 20:47 Test: AST/SGOT; Value: 22; Range: 15-37; Units: U/L; Status: F Test: ALT/SGPT; Value: 23; Range: 12-78; Units: U/L; Status: F Test: ALKALINE PHOSPHATASE; Value: 205; Range: 45-117; Abnormal: Above high normal; Units: U/L; Status: F Test: BILIRUBIN,TOTAL; Value: 0.7; Range: 0.2-1.0; Units: MG/DL; Status: F Test: BILIRUBIN,DIRECT; Value: 0.2; Range: 0.0-0.2; Units: MG/DL; Status: F Test: TOTAL PROTEIN; Value: 9.7; Range: 6.4-8.2; Abnormal: Above high normal; Units: GM/DL; Status: F Test: ALBUMIN; Value: 4.2; Range: 3.2-5.2; Units: GM/DL; Status: F Test: ALBUMIN/GLOBULIN RATIO; Value: 0.76; Range: 1.00-1.93; Abnormal: Below low normal; Status: F Lab Order: Amylase; [facility] 12/11/16 20:47 Test: AMYLASE; Value: 117; Range: 25-115; Abnormal: Above high normal; Units: U/L; Status: F Lab Order: Lipase; [facility] 12/11/16 20:47 Test: LIPASE; Value: 184; Range: 73-393; Units: U/L; Status: F Lab Order: Lactic Acid (Au tube on ice); [facility] 12/11/16 20:47 Test: LACTIC ACID SEPSIS PROTOCOL; Value: 2.6; Range: 0.4-2.0; Abnormal: Above upper panic limits; Units: MMOL/L; Status: F Lab Order: Pt & Aptt; [facility] 12/11/16 20:47 Test: PROTHROMBIN TIME; Value: 32.5; Range: 12.3-14.5; Abnormal: Above high normal; Units: SECONDS; Status: F Test: INR; Value: 3.17; Status: F Test: PARTIAL THROMBOPLASTIN TIME; Value: 51.9; Range: 26.6-37.1; Abnormal: Above high normal; Units: SECONDS; Status: F Test Note: ; THERAPUTIC HUMAN INR VALUES INDICATIONS NORMAL RANGES PROPHYLAXIS/TREATMENT OF: VENOUS THROMBOSIS 2.0-3.0 PULMONARY EMBOLISM 2.0-3.0 PREVENTION OF SYSTEMIC EMBOLISM FROM: TISSUE HEART VALVES 2.0-3.0 ACUTE MYOCARDIAL INFARCTION 2.0-3.0 VALVULAR HEART DISEASE 2.0-3.0 ATRIAL FIBRILLATION 2.0-3.0 MECHANICAL VALVES(HIGH RISK) 2.5-3.5 RECURRENT MYOCARDIAL INFARCTION 2.5-3.5 Lab Order: MED Profile; [facility] 23:15 Test: GLUCOSE, FASTING; Value: 129; Range: 83-110; Abnormal: Above high normal; Units: MG/DL; Status: F Test: BLOOD UREA NITROGEN; Value: 46; Range: 7-18; Abnormal: Above high normal; Units: MG/DL; Status: F Test: CREATININE FOR GFR; Value: 1.68; Range: 0.55-1.02; Abnormal: Above high normal; Units: MG/DL; Status: F Test: GLOMERULAR FILTRATION RATE; Value: 30.6; Range: >32; Abnormal: Below low normal; Status: F Test: SODIUM LEVEL; Value: 137; Range: 136-145; Units: MEQ/L; Status: F Test: POTASSIUM SERUM; Value: 4.8; Range: 3.5-5.1; Units: MEQ/L; Status: F Test: CHLORIDE LEVEL; Value: 100; Range: 98-107; Units: MEQ/L; Status: F Test: CARBON DIOXIDE LEVEL; Value: 26; Range: 21-32; Units: MEQ/L; Status: F Test: ANION GAP; Value: 11; Range: 8-16; Units: MEQ/L; Status: F Test: CALCIUM LEVEL; Value: 8.8; Range: 8.8-10.2; Abnormal: Delta; Units: MG/DL; Status: F Test Note: ; Units are mL/min/1.73 m2 Chronic Kidney Disease Staging per NKF: Stage I & II GFR >=60 Normal to Mildly Decreased Stage III GFR 30-59 Moderately Decreased Stage IV GFR 15-29 Severely Decreased Stage V GFR <15 Very Little GFR Left ESRD GFR <15 on LASTING FLOORWORKER Lab Order: Lactic Acid (Au tube on ice); [facility] 23:15 Test: LACTIC ACID SEPSIS PROTOCOL; Value: 1.5; Range: 0.4-2.0; Units: MMOL/L; Status: F Lab Order: COMPLETE BLOOD COUNT; [facility]12/[facility] 07:29 Test: WHITE BLOOD COUNT; Value: 8.2; Range: 4.0-10.0; Units: K/mm3; Status: F Test: RED BLOOD COUNT; Value: 4.76; Range: 4.00-5.40; Units: M/mm3; Status: F Test: HEMOGLOBIN; Value: 15.5; Range: 12.0-16.0; Abnormal: Delta; Units: g/dl; Status: F Test: HEMATOCRIT; Value: 47.5; Range: 36.0-47.0; Abnormal: Above high normal; Units: %; Status: F Test: MEAN CORPUSCULAR VOLUME; Value: 99.8; Range: 80.0-96.0; Abnormal: Above high normal; Units: fl; Status: F Test: MEAN CORPUSCULAR HEMOGLOBIN; Value: 32.6; Range: 27.0-33.0; Units: pg; Status: F Test: MEAN CORPUSCULAR HGB CONC; Value: 32.7; Range: 32.0-36.5; Units: g/dl; Status: F Test: RED CELL DISTRIBUTION WIDTH; Value: 14.0; Range: 11.5-14.5; Units: %; Status: F Test: PLATELET COUNT, AUTOMATED; Value: 221; Range: 150-450; Units: k/mm3; Status: F Lab Order: COMPLETE COMPHRENSIVE METABOLI; SPEC'M 12/12/16 07:29 Test: GLUCOSE, FASTING; Value: 127; Range: 83-110; Abnormal: Above high normal; Units: MG/DL; Status: F Test: BLOOD UREA NITROGEN; Value: 44; Range: 7-18; Abnormal: Above high normal; Units: MG/DL; Status: F Test: CREATININE FOR GFR; Value: 1.68; Range: 0.55-1.02; Abnormal: Above high normal; Units: MG/DL; Status: F Test: GLOMERULAR FILTRATION RATE; Value: 30.6; Range: >32; Abnormal: Below low normal; Status: F Test: SODIUM LEVEL; Value: 139; Range: 136-145; Units: MEQ/L; Status: F Test: POTASSIUM SERUM; Value: 4.8; Range: 3.5-5.1; Units: MEQ/L; Status: F Test: CHLORIDE LEVEL; Value: 102; Range: 98-107; Units: MEQ/L; Status: F Test: CARBON DIOXIDE LEVEL; Value: 24; Range: 21-32; Units: MEQ/L; Status: F Test: ANION GAP; Value: 13; Range: 8-16; Units: MEQ/L; Status: F Test: CALCIUM LEVEL; Value: 9.6; Range: 8.8-10.2; Units: MG/DL; Status: F Test: AST/SGOT; Value: 19; Range: 15-37; Units: U/L; Status: F Test: ALT/SGPT; Value: 18; Range: 12-78; Units: U/L; Status: F Test: ALKALINE PHOSPHATASE; Value: 159; Range: 45-117; Abnormal: Above high normal; Units: U/L; Status: F Test: BILIRUBIN,TOTAL; Value: 0.6; Range: 0.2-1.0; Units: MG/DL; Status: F Test: TOTAL PROTEIN; Value: 7.9; Range: 6.4-8.2; Units: GM/DL; Status: F Test: ALBUMIN; Value: 3.3; Range: 3.2-5.2; Abnormal: Delta; Units: GM/DL; Status: F Test: ALBUMIN/GLOBULIN RATIO; Value: 0.72; Range: 1.00-1.93; Abnormal: Below low normal; Status: F Test Note: ; Units are mL/min/1.73 m2 Chronic Kidney Disease Staging per NKF: Stage I & II GFR >=60 Normal to Mildly Decreased Stage III GFR 30-59 Moderately Decreased Stage IV GFR 15-29 Severely Decreased Stage V GFR <15 Very Little GFR Left ESRD GFR <15 on LASTING FLOORWORKER Radiology Order: CT ABD & PELVIS: IV Contrast Only Test: CT ABD & PELVIS: IV Contrast Only REASON FOR EXAMINATION: Abdomen Pain; ; CLINICAL HISTORY: Abdominal pain.; TECHNIQUE: Multiple axial, sagittal and coronal CT images were obtained through the abdomen and pelvi; s after administration of oral and intravenous contrast material. Images were obtained before and aft; er IV contrast administration.; COMMENTS:; The liver is of uniform attenuation without mass or defect. There is pneumobilia. There is mild bilia; ry ductal dilatation. The spleen is normal. The gallbladder is surgically absent. The pancreas is of; normal contour and attenuation characteristics. There is no evidence of adrenal mass.; Bilateral renal cysts with the largest measuring 4.6 cm on the right side.; Both kidneys demonstrate prompt and equal nephrograms. The kidneys are normal in size, shape and conf; iguration. There is no evidence of renal or ureteral mass. No renal or ureteral calculi are identifie; d. There is no hydroureter or hydronephrosis.; No evidence for appendicitis. There is mild ascites. Uncomplicated calcified aneurysm of the splenic; artery measuring 1.9 cm.; There is no evidence of intrinsic or extrinsic bladder mass. Moderate partial small bowel obstruction; . Swirling of the mesentery in the right lower quadrant at the level of the transition zone in the di; stal ileum. Uncomplicated clonic diverticulosis.; Images of the lung bases show no evidence of pleural or parenchymal mass. There are no pleural effusi; ons.moderate cardiomegaly. Bilateral basilar groundglass densities of the lungs. Pacemaker wires are; in good position. The bony structures are free of lytic or blastic lesions. Multilevel degenerative c; hanges are seen involving the thoracolumbar spine. Scattered calcifications are seen involving the ao; rta and major branches compatible with atherosclerosis. Chronic benign sacral nerve root cysts are no; paulette the largest measuring 3.2 cm.; IMPRESSION:; Moderate partial small bowel obstruction. Transition zone at the level of the terminal ileum.; Swirling of the mesentery in the right lower quadrant at the level of the transition zone in the dist; al ileum. This is a nonspecific finding that can be secondary to an internal hernia. This needs a zoe; gical consultation.; No associated bowel perforation or pneumatosis intestinalis.; Mildly dilated biliary tree.; Pneumobilia.; Cholecystectomy.; Basilar ground glass densities of the lungs. 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 cs11 12:31 Patient left the ED. deg Signatures: Dispatcher [employer] EDMS Mara Green, Pipeline Inspector Unit deg Mary Alfaro RN Rm Guerra mcp, DEEJAY PMO MANAGER [id number] Brittney Martinez RN RN sls1 Cristian Ramirez DO DO cs11 Nitza Schneider Hillary, Reg Reg hs2 Ayana Urias,RN RN kas2 MTDD
[2016-12-12 14:00] VITALS: BP 158/72
--- NOTE | 2016-12-12 15:05 | HPE ---
DATE OF ADMISSION: 12/12/2016 CHIEF COMPLAINT: Abdominal pain and bloating. HISTORY OF PRESENT ILLNESS: The patient is an 86-year-old female who came to the emergency room with complaints of abdominal plain, distension, and vomiting that started yesterday afternoon. It got progressively worse into the evening. The pain is mainly located in her lower abdomen. She has had symptoms like this in the past and was diagnosed with a small bowel obstruction that was relieved on its own without requiring surgery. However, she has not had any problems since then. She has had multiple previous abdominal surgeries including hysterectomy but that was many years ago. No recent surgeries. She denies any fevers or chills. Her last bowel movement was yesterday morning. No flatus or bowel movement since then. No nausea or vomiting since the nasogastric (NG) tube has been placed and she has had a large amount of output already. She is very hard of hearing so the history was very difficult to obtain. PAST MEDICAL HISTORY: 1. Atrial fibrillation. 2. Hypercholesterolemia. 3. Hypertension. 4. Cerebrovascular accident (CVA). 5. Congestive heart failure. PAST SURGICAL HISTORY: 1. Hysterectomy. 2. Cataract surgery. 3. Pacemaker. 4. Cardiac stents. SOCIAL HISTORY: Denies drug, alcohol, or tobacco abuse. FAMILY HISTORY: Noncontributory. ALLERGIES: None. HOME MEDICATIONS: Please see medical record. REVIEW OF SYSTEMS: Pertinent positives and negatives as stated in the history of present illness (HPI). PHYSICAL EXAMINATION: GENERAL: Alert and oriented times three. No acute distress. VITAL SIGNS: Temperature 99.3, pulse 86, respirations 18, blood pressure 161/75, pulse oximetry 100% on room air. HEENT: Pupils are equally round and react to light and accommodation. HEART: S1, S2, regular rate and rhythm. LUNGS: Clear auscultation bilaterally. ABDOMEN: Soft, distended, diffuse tenderness to palpation. No rebounding, guarding or rigidity. No signs of peritonitis. EXTREMITIES: No clubbing, cyanosis or edema. LABORATORY DATA: White count 9.9 down to 8.2 this morning, hemoglobin 15.5, platelets 221. INR 3.17. Lactic acid is 1.5, potassium 4.8, creatinine 1.68. IMAGING STUDIES: CT abdomen and pelvis shows a partial small bowel obstruction, transition zone at the level of the terminal ileum. There is swelling of the mesentery in the right lower quadrant at the level of the transition zone in the distal ilium. This is a nonspecific finding that can be secondary to an internal hernia and needs surgical consultation. No signs of bowel perforation or pneumatosis intestinalis and there is mildly dilated biliary tree. ASSESSMENT AND PLAN: The patient is an 86-year-old female with partial versus complete small bowel obstruction with likely transition zone in the right lower quadrant. It could be secondary to internal hernia versus adhesions from previous surgery. Currently, she is comfortable with a nasogastric (NG) tube placement. Plan is to keep her nothing by mouth, on IV fluids, antibiotics, and use NG decompression. If she does not show signs of resolution of this obstruction within the next 72 hours then she may require a diagnostic laparoscopy with possible release of adhesions versus internal hernia.
--- NOTE | 2016-12-12 17:03 | IPNPDOC ---
Subjective Date Seen The patient was seen on 12/12/16. Subjective Chief Complaint/HPI The patient is a 86-year-old female admitted with a reason for visit of Small Bowel Obstruction. Events since last encounter improved R>LLQ abdominal pain since admission, 1D sx CLINICAL ABSTRACTOR Constitutional: Denies: Chills, Fever Eyes: Denies: Pain ENT: Denies: Head Aches Pulmonary: Denies: Dyspnea Cardiovascular: Denies: Chest Pain Gastrointestinal: Reports: Abdominal Pain (RLQ), Denies: Nausea, Vomiting Genitourinary: Denies: Dysuria Hematologic: Denies: Bruising Objective Physical Examination General Exam: Positive: No Acute Distress Eye Exam: Positive: PERRLA Neck Exam: Positive: JVD (9 cm) Chest Exam: Positive: Rales (B basilar) Heart Exam: Positive: Rate Normal Abdomen Exam: Positive: BS Hypoactive (mild distension) Extremity Exam: Negative: Edema Neuro Exam: Positive: Strength at 5/5 X4 ext Psych Exam: Positive: Mental status NL Assessment /Plan Problems (1) Paroxysmal atrial fibrillation Status: Chronic Response to Treatment: Stable Problem Text: chronically VKA for anticoag/nohting for rate control 12/11/16 INR 3.2-plan + heparin gtt (2) Diastolic CHF Status: Chronic Response to Treatment: Stable Problem Text: 12/12/16 mild decompensation off HD fur 80 BID/choco 50/K 80 BID and on LR at 100 cc/H; therefore, SLIV (3) Atrial fibrillation, chronic Status: Chronic Response to Treatment: Stable Problem Text: paroxysmal (4) Small bowel obstruction Status: Acute Problem Text: continue NPO/NGT daughter, Massiel, HCP, at bedside-affirms DNR but would agree to surgery if needed 12/12/16 CT AP c/w partial SBO c transition zone at terminal ileum [place] on consult (5) CAD (coronary artery disease) Status: Chronic Response to Treatment: Stable Problem Text: No active symptoms (6) Hypothyroid Status: Chronic Response to Treatment: Stable Problem Text: 09/2016 TSH 3.8 on LT4 88 12/12 LT4 37.5 IV QD (7) CKD (chronic kidney disease) stage 3, GFR 30-59 ml/min Status: Acute Plan/VTE VTE Prophylaxis Ordered?: Yes VS, I&O, 24H, Fishbone Vital Signs/I&O Vital Signs Date Time Temp Pulse Resp B/P Pulse Ox O2 Delivery O2 Flow Rate FiO2 12/12/16 14:00 99.3 72 18 158/72 93 Room Air I&O- Last 24 Hours up to 6 AM 12/12/16 06:00 Output Total 600 ml Balance -600 ml Laboratory Data 24H LABS Laboratory Tests 2 12/11/16 20:47: Activated Partial Thromboplast Time 51.9H, Aspartate Amino Transf (AST/SGOT) 22 , Alanine Aminotransferase (ALT/SGPT) 23, Alkaline Phosphatase 205H, Total Bilirubin 0.7, Direct Bilirubin 0.2, Albumin 4.2, Albumin/Globulin Ratio 0.76L, Amylase Level 117H, Anion Gap 12, White Blood Count 9.9, Red Blood Count 5.47H, Hemoglobin 17.5H, Hematocrit 53.1H, Mean Corpuscular Volume 97.2H, Mean Corpuscular Hemoglobin 32.0, Mean Corpuscular Hemoglobin Concent 32.9, Red Cell Distribution Width 13.5, Platelet Count 293, Neutrophils (%) (Auto) 80.1H, Lymphocytes (%) (Auto) 13.7L, Monocytes (%) (Auto) 4.0, Eosinophils (%) (Auto) 0.6, Basophils (%) (Auto) 0.2, Neutrophils # (Auto) 8.0H, Lymphocytes # (Auto) 1.4L, Monocytes # (Auto) 0.4, Eosinophils # (Auto) 0.1, Basophils # (Auto) 0.0, Calcium Level 10.7H, Glomerular Filtration Rate 26.6L, Lactic Acid (Sepsis) 2.6* H, Large Unclassified Cells # 0.1, Large Unclassified Cells % 1.4, Lipase 184, Prothromb Time International Ratio 3.17, Prothrombin Time 32.5H, Total Protein 9.7H 12/11/16 23:15: Anion Gap 11, Calcium Level 8.8#, Glomerular Filtration Rate 30.6L, Lactic Acid (Sepsis) 1.5, Blood Urea Nitrogen 46H, Creatinine 1.68H, Sodium Level 137, Potassium Level 4.8, Chloride Level 100, Carbon Dioxide Level 26 12/12/16 01:16: Lactic Acid Level 1.6 12/12/16 07:29: Aspartate Amino Transf (AST/SGOT) 19, Alanine Aminotransferase (ALT/SGPT) 18, Alkaline Phosphatase 159H, Total Bilirubin 0.6, Albumin 3.3#, Albumin/Globulin Ratio 0.72L, Anion Gap 13, Calcium Level 9.6, Glomerular Filtration Rate 30.6L, Total Protein 7.9, Blood Urea Nitrogen 44H, Creatinine 1.68H, Sodium Level 139, Potassium Level 4.8, Chloride Level 102, Carbon Dioxide Level 24 CBC/BMP Laboratory Tests 12/11/16 20:47 Red Blood Count 5.47 H, Mean Corpuscular Volume 97.2 H, Mean Corpuscular Hemoglobin 32.0, Mean Corpuscular Hemoglobin Concent 32.9, Red Cell Distribution Width 13.5, Neutrophils (%) (Auto) 80.1 H, Lymphocytes (%) (Auto) 13.7 L, Monocytes (%) (Auto) 4.0, Eosinophils (%) (Auto) 0.6, Basophils (%) ( Auto) 0.2, Neutrophils # (Auto) 8.0 H, Lymphocytes # (Auto) 1.4 L, Monocytes # ( Auto) 0.4, Eosinophils # (Auto) 0.1, Basophils # (Auto) 0.0 12/11/16 23:15 Calcium Level 8.8 # 12/12/16 07:29 Red Blood Count 4.76, Mean Corpuscular Volume 99.8 H, Mean Corpuscular Hemoglobin 32.6, Mean Corpuscular Hemoglobin Concent 32.7, Red Cell Distribution Width 14.0, Calcium Level 9.6, Aspartate Amino Transf (AST/SGOT) 19 , Alanine Aminotransferase (ALT/SGPT) 18, Alkaline Phosphatase 159 H, Total Bilirubin 0.6, Total Protein 7.9, Albumin 3.3 Adrián Bermudez M.D. Dec 12, 2016 17:03
[2016-12-12 22:00] VITALS: BP 130/59
[2016-12-13 06:00] VITALS: BP 188/80
[2016-12-13 06:37] LABS: MEAN CORPUSCULAR HEMOGLOBIN 32.9 pg (27.0-33.0); MEAN CORPUSCULAR HGB CONC 32.5 g/dl (32.0-36.5); MEAN CORPUSCULAR VOLUME 101.3 fl (80.0-96.0); RED CELL DISTRIBUTION WIDTH 13.9 % (11.5-14.5); WHITE BLOOD COUNT 6.2 K/mm3 (4.0-10.0)
[2016-12-13 06:51] LABS: ALBUMIN/GLOBULIN RATIO 0.68 (1.00-1.93); BILIRUBIN,TOTAL 0.6 MG/DL (0.2-1.0); CALCIUM LEVEL 8.4 MG/DL (8.8-10.2); CREATININE FOR GFR 1.52 MG/DL (0.55-1.02); GLOMERULAR FILTRATION RATE 34.4 (>32); MAGNESIUM LEVEL 2.2 MG/DL (1.8-2.4); TOTAL PROTEIN 6.4 GM/DL (6.4-8.2)
[2016-12-13 06:56] LABS: POTASSIUM SERUM 4.3 MEQ/L (3.5-5.1)
[2016-12-13 07:00] LABS: ALBUMIN 2.6 GM/DL (3.2-5.2)
[2016-12-13] MEDS: LR 1,000 ML IV SCH ×2 (07:46→19:42)
[2016-12-13 07:49] LABS: INR 7.79
[2016-12-13] MEDS ORDERED: PHYTONADIONE 10MG/ML INJECTION (J3430) SC ONE (08:30)
[2016-12-13 08:44] LABS: INR 7.8
[2016-12-13] MEDS: LEVOTHYROXINE 100 MCG (0.1MG) VIAL IV SCH (09:13)
[2016-12-13] MEDS: PANTOPRAZOLE 40MG INJ (PROTONIX) (C9113) IV SCH (09:13)
[2016-12-13 09:32] VITALS: BP 148/72
[2016-12-13 14:00] VITALS: BP 178/77
--- NOTE | 2016-12-13 15:59 | IPNPDOC ---
Subjective Date Seen The patient was seen on 12/13/16. Subjective Chief Complaint/HPI The patient is a 86-year-old female admitted with a reason for visit of Small Bowel Obstruction. Constitutional: Denies: Chills ENT: Denies: Head Aches Pulmonary: Denies: Cough, Dyspnea Cardiovascular: Denies: Chest Pain, Palpitations Gastrointestinal: Denies: Abdominal Pain, Nausea, Vomiting Genitourinary: Denies: Dysuria Objective Physical Examination General Exam: Positive: No Acute Distress Eye Exam: Positive: PERRLA Neck Exam: Positive: JVD (9 cm) Chest Exam: Positive: Rales (B basilar) Heart Exam: Positive: Rate Normal Abdomen Exam: Positive: BS Hypoactive (mild distension) Extremity Exam: Negative: Edema Neuro Exam: Positive: Strength at 5/5 X4 ext Psych Exam: Positive: Mental status NL Assessment /Plan Problems (1) Small bowel obstruction Status: Acute Problem Text: continue NPO/NGT daughter, Massiel, HCP, at bedside-affirms DNR but would agree to surgery if needed 12/13/16 resolved abdominal pain, 1750 NGT output 12/12, repeat AXR, d/c NGT in AM if continues to improved 12/12/16 CT AP c/w partial SBO c transition zone at terminal ileum [place] on consult (2) Paroxysmal atrial fibrillation Status: Chronic Response to Treatment: Stable Problem Text: chronically VKA for anticoag/nothing for rate control 12/12/16 7.8 s abnormal bleeding/bruising/stable hgb-vit K 5 SC given 12/11/16 INR 3.2-plan + heparin gtt (3) Diastolic CHF Status: Chronic Response to Treatment: Stable Problem Text: 12/13/16 persistent mild decompensation, BNP 301, decrease LR to 50cc/H 12/12/16 mild decompensation off HD fur 80 BID/choco 50/K 80 BID and on LR at 100 cc/H; therefore, SLIV (4) Atrial fibrillation, chronic Status: Chronic Response to Treatment: Stable Problem Text: paroxysmal (5) CAD (coronary artery disease) Status: Chronic Response to Treatment: Stable Problem Text: No active symptoms (6) Hypothyroid Status: Chronic Response to Treatment: Stable Problem Text: 09/2016 TSH 3.8 on LT4 88 12/12 LT4 37.5 IV QD (7) CKD (chronic kidney disease) stage 3, GFR 30-59 ml/min Status: Chronic Response to Treatment: Stable Problem Text: stable cr/lytes baseline cr 1.5 Plan/VTE VTE Prophylaxis Ordered?: Yes VS, I&O, 24H, [place] Vital Signs/I&O Vital Signs Date Time Temp Pulse Resp B/P Pulse Ox O2 Delivery O2 Flow Rate FiO2 12/13/16 09:32 99.4 75 18 148/72 99 Room Air I&O- Last 24 Hours up to 6 AM 12/13/16 06:00 Intake Total 0 ml Output Total 1150 ml Balance -1150 ml Laboratory Data 24H LABS Laboratory Tests 2 12/13/16 06:20: Blood Urea Nitrogen 41H, Creatinine 1.52H, Sodium Level 146#H, Potassium Level 4.3, Chloride Level 107, Carbon Dioxide Level 29, Calcium Level 8.4L, Aspartate Amino Transf (AST/SGOT) 19, Alanine Aminotransferase (ALT/SGPT) 15, Alkaline Phosphatase 128H, Total Bilirubin 0.6, Total Protein 6.4, Albumin 2.6#L, Albumin /Globulin Ratio 0.68L, Anion Gap 10, B-Type Natriuretic Peptide 301H, Glomerular Filtration Rate 34.4, Magnesium Level 2.2, Prothromb Time International Ratio 7.79*H, Prothrombin Time 65.3H 12/13/16 08:07: Prothromb Time International Ratio 7.80*H, Prothrombin Time 65.3H CBC/BMP Laboratory Tests 12/13/16 06:20 Calcium Level 8.4 L, Aspartate Amino Transf (AST/SGOT) 19, Alanine Aminotransferase (ALT/SGPT) 15, Alkaline Phosphatase 128 H, Total Bilirubin 0.6 , Total Protein 6.4, Albumin 2.6 #L, Red Blood Count 4.01, Mean Corpuscular Volume 101.3 H, Mean Corpuscular Hemoglobin 32.9, Mean Corpuscular Hemoglobin Concent 32.5, Red Cell Distribution Width 13.9 Adrián Moser M.D. Dec 13, 2016 15:59
--- NOTE | 2016-12-13 16:55 | REP ---
Clinical: Abdominal distension. Bowel obstruction. Technique: Single supine view of the abdomen and pelvis. Findings: A nasogastric tube extends into the stomach with its side port at the gastroesophageal junction and may warrant advancement. The bowel gas pattern is nonspecific. Moderate fecal stasis suggested. No organomegaly. Evidence for prior cholecystectomy. 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 Skeletal structures demonstrate osteopenia and degenerative changes. Impression: Nonspecific bowel gas pattern. Nasogastric tube may warrant advancement. Signed by Roney Luz MD 12/13/2016 04:46 P
[2016-12-13 22:00] VITALS: BP 155/67
[2016-12-14 06:00] VITALS: BP 138/64
[2016-12-14 06:55] LABS: MEAN CORPUSCULAR HEMOGLOBIN 32.8 pg (27.0-33.0); MEAN CORPUSCULAR HGB CONC 32.2 g/dl (32.0-36.5); MEAN CORPUSCULAR VOLUME 101.8 fl (80.0-96.0); RED CELL DISTRIBUTION WIDTH 13.7 % (11.5-14.5); WHITE BLOOD COUNT 6.4 K/mm3 (4.0-10.0)
[2016-12-14 07:00] LABS: ALBUMIN 2.6 GM/DL (3.2-5.2); ALBUMIN/GLOBULIN RATIO 0.7 (1.00-1.93); BILIRUBIN,TOTAL 0.8 MG/DL (0.2-1.0); CALCIUM LEVEL 8.5 MG/DL (8.8-10.2); CREATININE FOR GFR 1.22 MG/DL (0.55-1.02); GLOMERULAR FILTRATION RATE 44.3 (>32); POTASSIUM SERUM 3.8 MEQ/L (3.5-5.1); TOTAL PROTEIN 6.3 GM/DL (6.4-8.2)
[2016-12-14 07:09] LABS: INR 2.08
--- NOTE | 2016-12-14 10:41 | IPNPDOC ---
Subjective Date Seen The patient was seen on 12/14/16. Subjective Chief Complaint/HPI The patient is a 86-year-old female admitted with a reason for visit of Small Bowel Obstruction. Events since last encounter NGT has been clamped. + flatus. Denies c/o. Constitutional: Denies: Chills, Fever, Night Sweats Pulmonary: Denies: Cough, Dyspnea Cardiovascular: Denies: Chest Pain, Lt Headedness, Orthopnea, Palpitations, Paroxysmal Noc. Dyspnea Gastrointestinal: Reports: Abdominal Pain, Denies: Constipation, Diarrhea, Nausea, Vomiting Psych: Reports: Mood Normal, Denies: Depression, Memory Issues Objective Physical Examination General Exam: Positive: No Acute Distress Eye Exam: Positive: PERRLA Neck Exam: Positive: JVD (9 cm) Chest Exam: Positive: Clear to auscultation Heart Exam: Positive: Rate Normal Abdomen Exam: Positive: BS Hypoactive (mild distension), Soft, Tenderness Extremity Exam: Negative: Edema Neuro Exam: Positive: Strength at 5/5 X4 ext Psych Exam: Positive: Mental status NL Assessment /Plan Problems (1) Small bowel obstruction Status: Acute Problem Text: continue NPO/NGT daughter, Massiel, HCP, at bedside-affirms DNR but would agree to surgery if needed 12/14/16: Per surgery. imaging today, advance diet as indicated. NGT clamped. + flatus 12/13/16 resolved abdominal pain, 1750 NGT output 12/12, repeat AXR, d/c NGT in AM if continues to improved 12/12/16 CT AP c/w partial SBO c transition zone at terminal ileum [place] on consult (2) Paroxysmal atrial fibrillation Status: Chronic Response to Treatment: Stable Problem Text: chronically VKA for anticoag/nothing for rate control 12/14/16: INR 2.0. Continue to HOLD Coumadin. Eval INR in am. 12/12/16 7.8 s abnormal bleeding/bruising/stable hgb-vit K 5 SC given 12/11/16 INR 3.2-plan + heparin gtt (3) Diastolic CHF Status: Chronic Response to Treatment: Stable Problem Text: 12/14/2016: LR at 50 cc/hour. NPO. Appears compensated. Cr 1.2 12/13/16 persistent mild decompensation, BNP 301, decrease LR to 50cc/H 12/12/16 mild decompensation off HD fur 80 BID/choco 50/K 80 BID and on LR at 100 cc/H; therefore, SLIV (4) Atrial fibrillation, chronic Status: Chronic Response to Treatment: Stable Problem Text: 12/14/2016: warfarin on HOLD. INR 2.0. recheck INR in am. paroxysmal (5) CAD (coronary artery disease) Status: Chronic Response to Treatment: Stable Problem Text: No active symptoms (6) Hypothyroid Status: Chronic Response to Treatment: Stable Problem Text: 09/2016 TSH 3.8 on LT4 88 12/12 LT4 37.5 IV QD (7) CKD (chronic kidney disease) stage 3, GFR 30-59 ml/min Status: Chronic Response to Treatment: Stable Problem Text: 12/14/2016: Cr. 1.2 stable cr/lytes baseline cr 1.5 Plan/VTE VTE Prophylaxis Ordered?: Yes Plan Attending Physician Note: I saw and examined this patient. The case was reviewed with the RPA. VS, [facility]s/I&O Vital Signs Date Time Temp Pulse Resp B/P Pulse Ox O2 Delivery O2 Flow Rate FiO2 12/14/16 06:00 97.6 75 20 138/64 94 Room Air I&O- Last 24 Hours up to 6 AM 12/14/16 06:00 Intake Total 1650 ml Output Total 100 ml Balance 1550 ml Laboratory Data 24H LABS Laboratory Tests 2 12/14/16 06:26: Blood Urea Nitrogen 39H, Creatinine 1.22H, Sodium Level 148H, Potassium Level 3.8, Chloride Level 112H, Carbon Dioxide Level 24, Calcium Level 8.5L, Aspartate Amino Transf (AST/SGOT) 19, Alanine Aminotransferase (ALT/SGPT) 13, Alkaline Phosphatase 124H, Total Bilirubin 0.8, Total Protein 6.3L, Albumin 2.6L , Albumin/Globulin Ratio 0.70L, Anion Gap 12, Glomerular Filtration Rate 44.3, Prothromb Time International Ratio 2.08, Prothrombin Time 23.5H CBC/BMP Laboratory Tests 12/14/16 06:26 Calcium Level 8.5 L, Aspartate Amino Transf (AST/SGOT) 19, Alanine Aminotransferase (ALT/SGPT) 13, Alkaline Phosphatase 124 H, Total Bilirubin 0.8 , Total Protein 6.3 L, Albumin 2.6 L, Red Blood Count 4.08, Mean Corpuscular Volume 101.8 H, Mean Corpuscular Hemoglobin 32.8, Mean Corpuscular Hemoglobin Concent 32.2, Red Cell Distribution Width 13.[address] [facility] Dec 14, 2016 10:41 Etienne Cardenas M.D. Dec 15, 2016 18:01
[2016-12-14] MEDS: LEVOTHYROXINE 100 MCG (0.1MG) VIAL IV SCH (10:59)
[2016-12-14] MEDS: PANTOPRAZOLE 40MG INJ (PROTONIX) (C9113) IV SCH (10:59)
--- NOTE | 2016-12-14 13:32 | EDDOCDS ---
Physician Documentation [facility] Name: Alba Browning Age: 86 yrs Sex: Female : 1930 Arrival Date: 12/11/2016 Time: 20:00 Bed Admit Hold Private MD: Adrián Moser Disposition: 12/12/16 02:24 Hospitalization ordered by Stephane Loya for Inpatient Admission. Preliminary diagnosis are Other intestinal obstruction, Dehydration, Vomiting. - Bed requested for 5 Rondon. - Status is Inpatient Admission. deg - Condition is Stable. - Problem is new. - Symptoms have improved. Historical: - Home Meds: 1. omeprazole 40 mg Oral cpDR 1 cap once daily 2. levothyroxine 75 mcg Oral tab 1 tab once daily 3. sucralfate 1 gram Oral tab 1 tab 4 times per day 4. magnesium oxide 400 mg Oral tab 5. calcium 6. vit B 12 1,000 mcg daily 7. vit D2 1.25 mg weekly 8. spironolactone 50 mg Oral tab 1 tab once daily 9. furosemide 40 mg Oral tab 1 tab 2 times per day 10. potassium chloride 20 mEq Oral TbER 1 tab 2 times per day 11. warfarin 3 mg oral tab one 3 mg tablet friday and friday then 1.5 tabs the rest of the week - PMHx: Atrial Fib; Hypercholesterolemia; Hypertension; CVA; CHF; - PSHx: Hysterectomy; Cataract Surgery- Bilateral; Pacemaker Insertion; Cardiac stents; - Social history: Smoking status: Patient states was never smoker of tobacco. Patient is hearing impaired. - : The pt / caregiver states he / she is on anticoagulants: coumadin. Home medication list is obtained from pill bottles. - Exposure Risk Screening:: None identified. Vital Signs: 12/11 20:10 BP 172 / 81 (auto/); kas2 20:13 Pulse 86 MON; Pulse Ox 100% ; kas2 20:15 BP 172 / 81; Pulse 87; Resp 20; Temp 98.1(T); Pulse Ox 100% on R/A; Weight 51.71 kg / kas2 114 lbs; Height 5 ft. 0 in. (152.40 cm); Pain 5/10; 20:55 BP 165 / 74 (auto/); kas2 20:55 Pulse 82 MON; Pulse Ox 100% ; kas2 20:58 BP 157 / 79 (auto/); kas2 20:58 Pulse 78 MON; Pulse Ox 100% ; kas2 21:10 BP 157 / 71 (auto/); kas2 21:10 Pulse 86 MON; Pulse Ox 100% ; kas2 21:25 BP 152 / 71 (auto/); kas2 21:25 Pulse 80 MON; Pulse Ox 100% ; kas2 21:26 BP 106 / 65 (auto/); kas2 21:27 Pulse 78 MON; Pulse Ox 100% ; kas2 21:40 BP 151 / 73 (auto/); kas2 21:40 Pulse 80 MON; Pulse Ox 100% ; kas2 21:43 BP 151 / 73; Pulse 85; Resp 20; Pulse Ox 100% on R/A; Pain 2/10; kas2 21:55 BP 173 / 82 (auto/); kas2 21:55 Pulse 86 MON; Pulse Ox 99% ; kas2 22:10 BP 165 / 82 (auto/); kas2 22:10 Pulse 80 MON; Pulse Ox 99% ; kas2 22:16 BP 131 / 74 (auto/); kas2 22:17 Pulse 88 MON; Pulse Ox 97% ; kas2 22:24 Resp 20; Temp 98.0(O); Pulse Ox 100% on R/A; Pain 2/10; kas2 22:25 BP 172 / 84 (auto/); kas2 22:25 Pulse 86 MON; Pulse Ox 97% ; kas2 22:33 BP 170 / 82 (auto/); kas2 22:33 Pulse 86 MON; Pulse Ox 99% ; kas2 22:40 BP 172 / 84 (auto/); kas2 22:40 Pulse 84 MON; Pulse Ox 100% ; kas2 22:55 BP 179 / 83 (auto/); kas2 22:55 Pulse 78 MON; Pulse Ox 99% ; kas2 23:09 Pulse 82 MON; Pulse Ox 99% ; kas2 23:10 BP 171 / 82 (auto/); kas2 23:18 BP 171 / 77 (auto/); kas2 23:18 Pulse 82 MON; Pulse Ox 97% ; kas2 23:25 BP 164 / 77 (auto/); kas2 23:25 Pulse 80 MON; Pulse Ox 100% ; kas2 23:40 BP 162 / 71 (auto/); kas2 23:40 Pulse 80 MON; Pulse Ox 99% ; kas2 23:55 BP 154 / 72 (auto/); kas2 23:55 Pulse 74 MON; Pulse Ox 98% ; kas2 12/12 00:10 BP 150 / 70 (auto/); kas2 00:10 Pulse 82 MON; Pulse Ox 99% ; kas2 00:25 BP 155 / 80 (auto/); kas2 00:25 Pulse 86 MON; Pulse Ox 92% ; kas2 00:40 BP 153 / 73 (auto/); kas2 00:40 Pulse 82 MON; Pulse Ox 98% ; kas2 00:40 Resp 18; Temp 97.6(O); kas2 00:55 BP 161 / 76 (auto/); kas2 00:55 Pulse 82 MON; Pulse Ox 97% ; kas2 01:10 BP 151 / 69 (auto/); kas2 01:10 Pulse 80 MON; Pulse Ox 97% ; kas2 01:25 BP 162 / 76 (auto/); kas2 01:25 Pulse 80 MON; Pulse Ox 98% ; kas2 01:40 BP 150 / 72 (auto/); kas2 01:40 Pulse 76 MON; Pulse Ox 97% ; kas2 01:55 BP 138 / 64 (auto/); kas2 01:55 Pulse 80 MON; Pulse Ox 94% ; kas2 02:10 BP 138 / 63 (auto/); kas2 02:10 Pulse 78 MON; Pulse Ox 95% ; kas2 02:27 Resp 18; Temp 97.6(TE); Pain 0/10; kas2 12/11 20:15 Body Mass Index 22.26 (51.71 kg, 152.40 cm) [facility] MDM: 12/11 20:31 IV Saline Lock ordered. cs11 20:31 NS 0.9% 1000 ml IV at 150 mL/hr continuous ordered. cs11 20:32 morphine 2 mg IVP once ordered. cs11 20:32 Metoclopramide 10 mg IV at 40 mg/hr once over 15 mins ordered. cs11 20:33 CBC with Diff Ordered. EDMS 20:33 MED Profile Ordered. EDMS 20:33 Liver Profile Ordered. EDMS 20:33 Amylase Ordered. EDMS 20:33 Lipase Ordered. EDMS 20:33 Lactic Acid (Au tube on ice) Ordered. EDMS 20:33 Pt & Aptt Ordered. EDMS 21:04 Financial registration complete. gjb 21:13 CBC with Diff Reviewed. cs11 21:13 Pt & Aptt Reviewed. cs11 21:15 [facility] Payment Agreement was scanned into [employer] and attached to record. gjb 21:50 MED Profile Reviewed. cs11 21:50 Liver Profile Reviewed. cs11 21:50 Amylase Reviewed. cs11 21:50 Lactic Acid (Au tube on ice) Reviewed. cs11 21:50 Lipase Reviewed. cs11 21:51 NS 0.9% 1000 ml IV at bolus once ordered. cs11 21:58 Ondansetron 8 mg IVP once ordered. cs11 23:05 MED Profile Ordered. EDMS 23:05 Lactic Acid (Au tube on ice) Ordered. EDMS 0216 00:04 MED Profile Reviewed. cs11 00:04 Lactic Acid (Au tube on ice) Reviewed. cs11 00:05 NS 0.9% 500 ml IV at bolus once ordered. cs11 00:07 CT ABD & PELVIS: IV Contrast Only Ordered. EDMS 00:29 NG/OG Tube 18Fr to L.I.S. with hourly monitoring for placement ordered. cs11 02:15 BED REQUEST+ADM ordered. EDMS 02:30 Admission Orders was scanned into [employer] and attached to record. hs2 02:41 Admission Orders was scanned into [employer] and attached to record. kb5 03:05 Admission / Observation Status ordered. EDMS 03:05 NPO DIET ordered. EDMS 06:36 COMPLETE BLOOD COUNT Ordered. EDMS 06:36 COMPLETE COMPHRENSIVE METABOLI Ordered. EDMS 08:43 Admission / Observation Status ordered. EDMS 15:44 T-Sheet-- Draft Copy was scanned into [employer] and attached to record. gb 15:45 Radiology Report was scanned into [employer] and attached to record. gb 15:45 Rhythm Strip was scanned into [employer] and attached to record. gb Administered Medications: 12/11 20:59 Drug: NS 0.9% 1000 ml [sodium chloride 0.9 % intravenous solution] Route: IV; Rate: 150 kas2 mL/hr; Site: left antecubital; 20:59 Drug: morphine 2 mg [morphine 2 mg/mL intravenous cartridge (1 mL)] Route: IVP; Site: kas2 left antecubital; 21:43 Follow up: BP 151 / 73; Pulse 85 bpm; Resp 20 bpm; Pulse Ox 100% RA; Pain 2/10 Adult; kas2 Response: No Adverse Reaction; Pain is decreased 20:59 Drug: Metoclopramide 10 mg [metoclopramide 5 mg/mL injection solution] Route: IV; Rate: kas2 40 mg/hr; Infused Over: 15 mins; Site: left antecubital; 21:56 Drug: NS 0.9% 1000 ml [sodium chloride 0.9 % intravenous solution] Route: IV; Rate: kas2 bolus; Site: left antecubital; 23:17 Follow up: IV Status: Completed infusion; IV Intake: 1000ml kas2 22:06 Drug: Ondansetron 8 mg [ondansetron HCl 2 mg/mL intravenous solution (3.75 mL)] Route: kas2 IVP; Site: left antecubital; 12/12 00:26 Drug: NS 0.9% 500 ml [sodium chloride 0.9 % intravenous solution] Route: IV; Rate: kas2 bolus; Site: left antecubital; 03:21 Follow up: IV Status: Completed infusion; IV Intake: 500ml kas2 Signatures: Dispatcher [employer] EDMS Mara Green, Employer Relations Representative Unit deg Dinah Quintero, Reg Reg gb Rm Mendoza, PAPER MILL SUPERVISOR PAPER MILL SUPERVISOR kb5 Cristian Ramirez, DO cs11 Nitza Schneider b Joya Foster, Reg Reg hs2 Ayana Urias RN RN kas2 Ray Braun RN RN sa The chart was reviewed and I authenticate all verbal orders and agree with the evaluation and treatment provided.Attachments: 12/11 21:15 [facility] Payment Agreement gjb 12/12 02:30 Admission Orders hs2 02:41 Admission Orders kb5 15:44 T-Sheet-- Draft Copy gb Chart Complete MTDD
--- NOTE | 2016-12-14 13:32 | EDDOCDS ---
Physician Documentation [facility] Name: Alba Browning Age: 86 yrs Sex: Female : 1930 Arrival Date: 12/11/2016 Time: 20:00 Bed Admit Hold Private MD: Adrián Moser Disposition: 12/12/16 02:24 Hospitalization ordered by Stephane Loya for Inpatient Admission. Preliminary diagnosis are Other intestinal obstruction, Dehydration, Vomiting. - Bed requested for 5 [place]ondon. - Status is Inpatient Admission. deg - Condition is Stable. - Problem is new. - Symptoms have improved. Historical: - Home Meds: 1. omeprazole 40 mg Oral cpDR 1 cap once daily 2. levothyroxine 75 mcg Oral tab 1 tab once daily 3. sucralfate 1 gram Oral tab 1 tab 4 times per day 4. magnesium oxide 400 mg Oral tab 5. calcium 6. vit B 12 1,000 mcg daily 7. vit D2 1.25 mg weekly 8. spironolactone 50 mg Oral tab 1 tab once daily 9. furosemide 40 mg Oral tab 1 tab 2 times per day 10. potassium chloride 20 mEq Oral TbER 1 tab 2 times per day 11. warfarin 3 mg oral tab one 3 mg tablet friday and friday then 1.5 tabs the rest of the week - PMHx: Atrial Fib; Hypercholesterolemia; Hypertension; CVA; CHF; - PSHx: Hysterectomy; Cataract Surgery- Bilateral; Pacemaker Insertion; Cardiac stents; - Social history: Smoking status: Patient states was never smoker of tobacco. Patient is hearing impaired. - : The pt / caregiver states he / she is on anticoagulants: coumadin. Home medication list is obtained from pill bottles. - Exposure Risk Screening:: None identified. Vital Signs: 12/11 20:10 BP 172 / 81 (auto/); kas2 20:13 Pulse 86 MON; Pulse Ox 100% ; kas2 20:15 BP 172 / 81; Pulse 87; Resp 20; Temp 98.1(T); Pulse Ox 100% on R/A; Weight 51.71 kg / kas2 114 lbs; Height 5 ft. 0 in. (152.40 cm); Pain 5/10; 20:55 BP 165 / 74 (auto/); kas2 20:55 Pulse 82 MON; Pulse Ox 100% ; kas2 20:58 BP 157 / 79 (auto/); kas2 20:58 Pulse 78 MON; Pulse Ox 100% ; kas2 21:10 BP 157 / 71 (auto/); kas2 21:10 Pulse 86 MON; Pulse Ox 100% ; kas2 21:25 BP 152 / 71 (auto/); kas2 21:25 Pulse 80 MON; Pulse Ox 100% ; kas2 21:26 BP 106 / 65 (auto/); kas2 21:27 Pulse 78 MON; Pulse Ox 100% ; kas2 21:40 BP 151 / 73 (auto/); kas2 21:40 Pulse 80 MON; Pulse Ox 100% ; kas2 21:43 BP 151 / 73; Pulse 85; Resp 20; Pulse Ox 100% on R/A; Pain 2/10; kas2 21:55 BP 173 / 82 (auto/); kas2 21:55 Pulse 86 MON; Pulse Ox 99% ; kas2 22:10 BP 165 / 82 (auto/); kas2 22:10 Pulse 80 MON; Pulse Ox 99% ; kas2 22:16 BP 131 / 74 (auto/); kas2 22:17 Pulse 88 MON; Pulse Ox 97% ; kas2 22:24 Resp 20; Temp 98.0(O); Pulse Ox 100% on R/A; Pain 2/10; kas2 22:25 BP 172 / 84 (auto/); kas2 22:25 Pulse 86 MON; Pulse Ox 97% ; kas2 22:33 BP 170 / 82 (auto/); kas2 22:33 Pulse 86 MON; Pulse Ox 99% ; kas2 22:40 BP 172 / 84 (auto/); kas2 22:40 Pulse 84 MON; Pulse Ox 100% ; kas2 22:55 BP 179 / 83 (auto/); kas2 22:55 Pulse 78 MON; Pulse Ox 99% ; kas2 23:09 Pulse 82 MON; Pulse Ox 99% ; kas2 23:10 BP 171 / 82 (auto/); kas2 23:18 BP 171 / 77 (auto/); kas2 23:18 Pulse 82 MON; Pulse Ox 97% ; kas2 23:25 BP 164 / 77 (auto/); kas2 23:25 Pulse 80 MON; Pulse Ox 100% ; kas2 23:40 BP 162 / 71 (auto/); kas2 23:40 Pulse 80 MON; Pulse Ox 99% ; kas2 23:55 BP 154 / 72 (auto/); kas2 23:55 Pulse 74 MON; Pulse Ox 98% ; kas2 12/12 00:10 BP 150 / 70 (auto/); kas2 00:10 Pulse 82 MON; Pulse Ox 99% ; kas2 00:25 BP 155 / 80 (auto/); kas2 00:25 Pulse 86 MON; Pulse Ox 92% ; kas2 00:40 BP 153 / 73 (auto/); kas2 00:40 Pulse 82 MON; Pulse Ox 98% ; kas2 00:40 Resp 18; Temp 97.6(O); kas2 00:55 BP 161 / 76 (auto/); kas2 00:55 Pulse 82 MON; Pulse Ox 97% ; kas2 01:10 BP 151 / 69 (auto/); kas2 01:10 Pulse 80 MON; Pulse Ox 97% ; kas2 01:25 BP 162 / 76 (auto/); kas2 01:25 Pulse 80 MON; Pulse Ox 98% ; kas2 01:40 BP 150 / 72 (auto/); kas2 01:40 Pulse 76 MON; Pulse Ox 97% ; kas2 01:55 BP 138 / 64 (auto/); kas2 01:55 Pulse 80 MON; Pulse Ox 94% ; kas2 02:10 BP 138 / 63 (auto/); kas2 02:10 Pulse 78 MON; Pulse Ox 95% ; kas2 02:27 Resp 18; Temp 97.6(TE); Pain 0/10; kas2 12/11 20:15 Body Mass Index 22.26 (51.71 kg, 152.40 cm) [facility] MDM: 12/11 20:31 IV Saline Lock ordered. cs11 20:31 NS 0.9% 1000 ml IV at 150 mL/hr continuous ordered. cs11 20:32 morphine 2 mg IVP once ordered. cs11 20:32 Metoclopramide 10 mg IV at 40 mg/hr once over 15 mins ordered. cs11 20:33 CBC with Diff Ordered. EDMS 20:33 MED Profile Ordered. EDMS 20:33 Liver Profile Ordered. EDMS 20:33 Amylase Ordered. EDMS 20:33 Lipase Ordered. EDMS 20:33 Lactic Acid (Au tube on ice) Ordered. EDMS 20:33 Pt & Aptt Ordered. EDMS 21:04 Financial registration complete. gjb 21:13 CBC with Diff Reviewed. cs11 21:13 Pt & Aptt Reviewed. cs11 21:15 [facility] Payment Agreement was scanned into [employer] and attached to record. gjb 21:50 MED Profile Reviewed. cs11 21:50 Liver Profile Reviewed. cs11 21:50 Amylase Reviewed. cs11 21:50 Lactic Acid (Au tube on ice) Reviewed. cs11 21:50 Lipase Reviewed. cs11 21:51 NS 0.9% 1000 ml IV at bolus once ordered. cs11 21:58 Ondansetron 8 mg IVP once ordered. cs11 23:05 MED Profile Ordered. EDMS 23:05 Lactic Acid (Au tube on ice) Ordered. EDMS 0216 00:04 MED Profile Reviewed. cs11 00:04 Lactic Acid (Au tube on ice) Reviewed. cs11 00:05 NS 0.9% 500 ml IV at bolus once ordered. cs11 00:07 CT ABD & PELVIS: IV Contrast Only Ordered. EDMS 00:29 NG/OG Tube 18Fr to L.I.S. with hourly monitoring for placement ordered. cs11 02:15 BED REQUEST+ADM ordered. EDMS 02:30 Admission Orders was scanned into [employer] and attached to record. hs2 02:41 Admission Orders was scanned into [employer] and attached to record. kb5 03:05 Admission / Observation Status ordered. EDMS 03:05 NPO DIET ordered. EDMS 06:36 COMPLETE BLOOD COUNT Ordered. EDMS 06:36 COMPLETE COMPHRENSIVE METABOLI Ordered. EDMS 08:43 Admission / Observation Status ordered. EDMS 15:44 T-Sheet-- Draft Copy was scanned into [employer] and attached to record. gb 15:45 Radiology Report was scanned into [employer] and attached to record. gb 15:45 Rhythm Strip was scanned into [employer] and attached to record. gb Administered Medications: 12/11 20:59 Drug: NS 0.9% 1000 ml [sodium chloride 0.9 % intravenous solution] Route: IV; Rate: 150 kas2 mL/hr; Site: left antecubital; 20:59 Drug: morphine 2 mg [morphine 2 mg/mL intravenous cartridge (1 mL)] Route: IVP; Site: kas2 left antecubital; 21:43 Follow up: BP 151 / 73; Pulse 85 bpm; Resp 20 bpm; Pulse Ox 100% RA; Pain 2/10 Adult; kas2 Response: No Adverse Reaction; Pain is decreased 20:59 Drug: Metoclopramide 10 mg [metoclopramide 5 mg/mL injection solution] Route: IV; Rate: kas2 40 mg/hr; Infused Over: 15 mins; Site: left antecubital; 21:56 Drug: NS 0.9% 1000 ml [sodium chloride 0.9 % intravenous solution] Route: IV; Rate: kas2 bolus; Site: left antecubital; 23:17 Follow up: IV Status: Completed infusion; IV Intake: 1000ml kas2 22:06 Drug: Ondansetron 8 mg [ondansetron HCl 2 mg/mL intravenous solution (3.75 mL)] Route: kas2 IVP; Site: left antecubital; 12/12 00:26 Drug: NS 0.9% 500 ml [sodium chloride 0.9 % intravenous solution] Route: IV; Rate: kas2 bolus; Site: left antecubital; 03:21 Follow up: IV Status: Completed infusion; IV Intake: 500ml kas2 Signatures: Dispatcher [employer] EDMS Mara Green, Shipping Clerk/Admin Unit deg Dinah Quintero, Reg Reg gb Rm Mendoza, WICKER WORKER WICKER WORKER kb5 Cristian Ramirez, DO cs11 Nitza Schneider b Joya Foster, Reg Reg hs2 Ayana Urias RN RN kas2 Ray Braun RN RN sa The chart was reviewed and I authenticate all verbal orders and agree with the evaluation and treatment provided.Attachments: 12/11 21:15 [facility] Payment Agreement gjb 12/12 02:30 Admission Orders hs2 02:41 Admission Orders kb5 15:44 T-Sheet-- Draft Copy gb Chart Complete MTDD
--- NOTE | 2016-12-14 13:32 | EDDOCDS ---
Nurse's Notes [facility] Name: Alba Browning Age: 86 yrs Sex: Female : 1930 Arrival Date: 12/11/2016 Time: 20:00 Bed Admit Hold Private MD: Adrián Moser Diagnosis: Other intestinal obstruction;Dehydration;Vomiting Presentation: 12/11 20:02 Presenting complaint: EMS states: Patient complaining of abdominal pain with vomiting kas2 since this morning. Loose stools since this morning. Denies chest pain or shortness of breath. FSBS 122 mg/dL. Adult Sepsis Screening: The patient does not have new or worsening altered mentation. Patient's respiratory rate is less than 22. Systolic blood pressure is greater than 100. Patient has a qSOFA score of 0- Negative Sepsis Screen. Suicide/Homicide risk assessment- the patient denies having any suicidal and/or homicidal ideations and does not present with any other emotional, behavioral or mental health complaints. Status: Patient is not a dining service supervisor or dependent. Transition of care: patient was not received from another setting of care. 20:02 Acuity: CHELSIE Level 3 kas2 20:02 Method Of Arrival: Ambulance [facility] Triage Assessment: 20:15 General: Appears in no apparent distress, comfortable, well nourished, well groomed, kas2 Behavior is appropriate for age, cooperative. Pain: Location: abdomen Pain currently is 5 out of 10 on a pain scale. Neurological: Level of Consciousness is awake, alert, Oriented to person, place, time. Cardiovascular: Capillary refill is > 3 seconds Heart tones S1 S2 present Rhythm is Chest pain is denied. Respiratory: Airway is patent Respiratory effort is even, unlabored, Respiratory pattern is regular, symmetrical, Breath sounds are diminished bilaterally. GI: Abdomen is distended, Bowel sounds hypoactive in right upper quadrant, left upper quadrant, right lower quadrant and left lower quadrant Abd is tender to palpation X 4 quads. Reports nausea, vomiting. Derm: Skin is intact, Skin is dry, Skin is pink, warm & dry. Skin temperature is warm. Historical: - Home Meds: 1. omeprazole 40 mg Oral cpDR 1 cap once daily 2. levothyroxine 75 mcg Oral tab 1 tab once daily 3. sucralfate 1 gram Oral tab 1 tab 4 times per day 4. magnesium oxide 400 mg Oral tab 5. calcium 6. vit B 12 1,000 mcg daily 7. vit D2 1.25 mg weekly 8. spironolactone 50 mg Oral tab 1 tab once daily 9. furosemide 40 mg Oral tab 1 tab 2 times per day 10. potassium chloride 20 mEq Oral TbER 1 tab 2 times per day 11. warfarin 3 mg oral tab one 3 mg tablet friday and friday then 1.5 tabs the rest of the week - PMHx: Atrial Fib; Hypercholesterolemia; Hypertension; CVA; CHF; - PSHx: Hysterectomy; Cataract Surgery- Bilateral; Pacemaker Insertion; Cardiac stents; - Social history: Smoking status: Patient states was never smoker of tobacco. Patient is hearing impaired. - : The pt / caregiver states he / she is on anticoagulants: coumadin. Home medication list is obtained from pill bottles. - Exposure Risk Screening:: None identified. Screenin:19 Screening information is obtained from the patient. Fall risk: At risk due to age. kas2 Assistance ADL's: requires no assistance with activities of daily living. Abuse/DV Screen: The patient / caregiver reports he/she is: not in a situation that causes fear, pain or injury. Nutritional screening: No deficits noted. Advance Directives: Currently, there is a health care proxy, Massiel Wen. There is no active DNR order. There is no living will. There is no Power of Car Sales Representative. home support is adequate. Assessment: 20:19 General: See triage note.. kas2 21:30 General: Appears in no apparent distress, comfortable, Behavior is appropriate for age, kas2 cooperative. Pain: Location: left lower quadrant and right lower quadrant and left upper quadrant and right upper quadrant Pain currently is 2 out of 10 on a pain scale. Neurological: Level of Consciousness is awake, alert, Oriented to person, place, time. Cardiovascular: Rhythm is sinus rhythm No ectopy. Respiratory: Airway is patent Respiratory effort is even, unlabored, Respiratory pattern is regular, symmetrical. Derm: Skin is intact, Skin is dry, Skin is pink, warm & dry. Skin temperature is warm. 21:55 General: Patient vomited small amount of bile like emesis. States abdominal pain is kas2 2/10. Dr. Ramirez aware.. 23:17 General: Appears in no apparent distress, comfortable, Behavior is appropriate for age, kas2 cooperative. Pain: Denies pain. Neurological: Level of Consciousness is awake, alert, Oriented to person, place, time. Cardiovascular: Rhythm is sinus rhythm No ectopy. Respiratory: Airway is patent Respiratory effort is even, unlabored, Respiratory pattern is regular, symmetrical. Derm: Skin is intact, Skin is dry, Skin is pink, warm & dry. Skin temperature is warm. 12/12 00:26 General: Appears in no apparent distress, comfortable, Behavior is appropriate for age, kas2 cooperative. Pain: Location: left lower quadrant and right lower quadrant and left upper quadrant and right upper quadrant Pain currently is 3 out of 10 on a pain scale. Neurological: Level of Consciousness is awake, alert, Oriented to person, place, time. Cardiovascular: Rhythm is sinus rhythm No ectopy. Respiratory: Airway is patent Respiratory effort is even, unlabored, Respiratory pattern is regular, symmetrical. Derm: Skin is intact, Skin is dry, Skin is pink, warm & dry. Skin temperature is warm. 01:28 General: Patient laying in bed with family at bedside. No apparent distress noted. kas2 Appears comfortable. Airway patent and respiratory even and unlabored. Call marques within reach. Will continue to monitor.. 02:26 General: Appears in no apparent distress, comfortable, Behavior is appropriate for age, kas2 cooperative. Pain: Denies pain. Neurological: Level of Consciousness is awake, alert, Oriented to person, place, time. Cardiovascular: Rhythm is sinus rhythm No ectopy. Respiratory: Airway is patent Respiratory effort is even, unlabored, Respiratory pattern is regular, symmetrical. Derm: Skin is intact, Skin is dry, Skin is pink, warm & dry. Skin temperature is warm. 03:20 General: Verbal report given to Ayana Danielle RN. Patient moved to Room 21.. kas2 Vital Signs: 12/11 20:10 BP 172 / 81 (auto/); kas2 20:13 Pulse 86 MON; Pulse Ox 100% ; kas2 20:15 BP 172 / 81; Pulse 87; Resp 20; Temp 98.1(T); Pulse Ox 100% on R/A; Weight 51.71 kg; kas2 Height 5 ft. 0 in. (152.40 cm); Pain 5/10; 20:55 BP 165 / 74 (auto/); kas2 20:55 Pulse 82 MON; Pulse Ox 100% ; kas2 20:58 BP 157 / 79 (auto/); kas2 20:58 Pulse 78 MON; Pulse Ox 100% ; kas2 21:10 BP 157 / 71 (auto/); kas2 21:10 Pulse 86 MON; Pulse Ox 100% ; kas2 21:25 BP 152 / 71 (auto/); kas2 21:25 Pulse 80 MON; Pulse Ox 100% ; kas2 21:26 BP 106 / 65 (auto/); kas2 21:27 Pulse 78 MON; Pulse Ox 100% ; kas2 21:40 BP 151 / 73 (auto/); kas2 21:40 Pulse 80 MON; Pulse Ox 100% ; kas2 21:43 BP 151 / 73; Pulse 85; Resp 20; Pulse Ox 100% on R/A; Pain 2/10; kas2 21:55 BP 173 / 82 (auto/); kas2 21:55 Pulse 86 MON; Pulse Ox 99% ; kas2 22:10 BP 165 / 82 (auto/); kas2 22:10 Pulse 80 MON; Pulse Ox 99% ; kas2 22:16 BP 131 / 74 (auto/); kas2 22:17 Pulse 88 MON; Pulse Ox 97% ; kas2 22:24 Resp 20; Temp 98.0(O); Pulse Ox 100% on R/A; Pain 2/10; kas2 22:25 BP 172 / 84 (auto/); kas2 22:25 Pulse 86 MON; Pulse Ox 97% ; kas2 22:33 BP 170 / 82 (auto/); kas2 22:33 Pulse 86 MON; Pulse Ox 99% ; kas2 22:40 BP 172 / 84 (auto/); kas2 22:40 Pulse 84 MON; Pulse Ox 100% ; kas2 22:55 BP 179 / 83 (auto/); kas2 22:55 Pulse 78 MON; Pulse Ox 99% ; kas2 23:09 Pulse 82 MON; Pulse Ox 99% ; kas2 23:10 BP 171 / 82 (auto/); kas2 23:18 BP 171 / 77 (auto/); kas2 23:18 Pulse 82 MON; Pulse Ox 97% ; kas2 23:25 BP 164 / 77 (auto/); kas2 23:25 Pulse 80 MON; Pulse Ox 100% ; kas2 23:40 BP 162 / 71 (auto/); kas2 23:40 Pulse 80 MON; Pulse Ox 99% ; kas2 23:55 BP 154 / 72 (auto/); kas2 23:55 Pulse 74 MON; Pulse Ox 98% ; kas2 02 00:10 BP 150 / 70 (auto/); kas2 00:10 Pulse 82 MON; Pulse Ox 99% ; kas2 00:25 BP 155 / 80 (auto/); kas2 00:25 Pulse 86 MON; Pulse Ox 92% ; kas2 00:40 BP 153 / 73 (auto/); kas2 00:40 Pulse 82 MON; Pulse Ox 98% ; kas2 00:40 Resp 18; Temp 97.6(O); kas2 00:55 BP 161 / 76 (auto/); kas2 00:55 Pulse 82 MON; Pulse Ox 97% ; kas2 01:10 BP 151 / 69 (auto/); kas2 01:10 Pulse 80 MON; Pulse Ox 97% ; kas2 01:25 BP 162 / 76 (auto/); kas2 01:25 Pulse 80 MON; Pulse Ox 98% ; kas2 01:40 BP 150 / 72 (auto/); kas2 01:40 Pulse 76 MON; Pulse Ox 97% ; kas2 01:55 BP 138 / 64 (auto/); kas2 01:55 Pulse 80 MON; Pulse Ox 94% ; kas2 02:10 BP 138 / 63 (auto/); kas2 02:10 Pulse 78 MON; Pulse Ox 95% ; kas2 02:27 Resp 18; Temp 97.6(TE); Pain 0/10; kas2 12/11 20:15 Body Mass Index 22.26 (51.71 kg, 152.40 cm) [facility] Vitals: 12/11 20:15 Log In Time N/A - ambulance arrival. [facility] ED Course: 20:01 Patient visited by Rm Mendoza PCA. kb5 20:01 Adrián Moser MD is Private Physician. kb5 20:01 Ayana UriasRN is Primary Nurse. kb5 20:01 Patient moved to Waiting kb5 20:01 Patient moved to 9 kb5 20:06 Triage Initiated kas2 20:12 Cristian Ramirez DO is Attending Physician. cs11 20:12 Patient visited by Cristian Ramirez DO. cs11 20:20 Patient visited by Ayana Urias RN. [facility] 20:50 awake overnight monitor on. Pulse ox on. NIBP on. kas2 21:02 Inserted saline lock: 20 gauge in left antecubital area and blood collected. The kas2 patient tolerated the procedure well. No procedures done that require assistance. 21:10 Patient visited by Ayana Urias RN. kas2 21:15 [facility] Payment Agreement was scanned into [employer] and attached to record. gjb 21:45 Patient visited by Ayana Urias RN. kas2 22:20 Patient visited by Ayana Urias RN. kas2 22:24 Patient visited by Ayana Urias RN. kas2 23:02 Patient visited by Ayana Urias RN. kas2 23:17 Lactic Acid (Au tube on ice) Sent. kas2 23:17 MED Profile Sent. kas2 23:20 Patient visited by Ayana Urias RN. kas2 23:50 Patient visited by Ayana Urias RN. [facility] 0216 00:27 Patient visited by Ayana Urias RN. kas2 01:00 Patient visited by Ayana Urias RN. [facility] 01:27 NGT inserted 14 Fr. via right nare. Placement verified. Returned gastric contents. to [facility] intermittent suction. Returned gastric contents. Patient tolerated well. 01:30 Patient visited by Ayana Urias RN. kas2 02:07 Patient visited by Ayana Urias RN. [facility] 02:23 Stephane Loya DO is Hospitalizing Provider. cs11 02:30 Admission Orders was scanned into [employer] and attached to record. hs2 02:31 CT ABD & PELVIS: IV Contrast Only Returned. EDMS 02:41 Admission Orders was scanned into [employer] and attached to record. kb5 03:21 Patient visited by Ayana Urias RN. kas2 03:21 Patient moved to 21 kas2 06:14 Patient moved to Admit Hold sls1 07:24 Primary Nurse role handed off by Ayana Urias RN mcp 15:44 T-Sheet-- Draft Copy was scanned into [employer] and attached to record. gb 15:45 Radiology Report was scanned into [employer] and attached to record. gb 15:45 Rhythm Strip was scanned into [employer] and attached to record. gb Administered Medications: 12/11 20:59 Drug: NS 0.9% 1000 ml [sodium chloride 0.9 % intravenous solution] Route: IV; Rate: 150 kas2 mL/hr; Site: left antecubital; 20:59 Drug: morphine 2 mg [morphine 2 mg/mL intravenous cartridge (1 mL)] Route: IVP; Site: kas2 left antecubital; 21:43 Follow up: BP 151 / 73; Pulse 85 bpm; Resp 20 bpm; Pulse Ox 100% RA; Pain 2/10 Adult; kas2 Response: No Adverse Reaction; Pain is decreased 20:59 Drug: Metoclopramide 10 mg [metoclopramide 5 mg/mL injection solution] Route: IV; Rate: kas2 40 mg/hr; Infused Over: 15 mins; Site: left antecubital; 21:56 Drug: NS 0.9% 1000 ml [sodium chloride 0.9 % intravenous solution] Route: IV; Rate: kas2 bolus; Site: left antecubital; 23:17 Follow up: IV Status: Completed infusion; IV Intake: 1000ml kas2 22:06 Drug: Ondansetron 8 mg [ondansetron HCl 2 mg/mL intravenous solution (3.75 mL)] Route: kas2 IVP; Site: left antecubital; 12/12 00:26 Drug: NS 0.9% 500 ml [sodium chloride 0.9 % intravenous solution] Route: IV; Rate: kas2 bolus; Site: left antecubital; 03:21 Follow up: IV Status: Completed infusion; IV Intake: 500ml kas2 Attachments: 15:45 Rhythm Strip gb Intake: 12/11 23:17 IV: 1000.00ml; Total: 1000.00ml. kas2 12/12 03:21 IV: 500.00ml; Total: 1500.00ml. kas2 Output: 03:20 Gastric: 600.00ml; Total: 600.00ml. kas2 Order Results: Lab Order: CBC with Diff; SPEC'M 12/11/16 20:47 Test: WHITE BLOOD COUNT; Value: 9.9; Range: 4.0-10.0; Units: K/mm3; Status: F Test: RED BLOOD COUNT; Value: 5.47; Range: 4.00-5.40; Abnormal: Above high normal; Units: M/mm3; Status: F Test: HEMOGLOBIN; Value: 17.5; Range: 12.0-16.0; Abnormal: Above high normal; Units: g/dl; Status: F Test: HEMATOCRIT; Value: 53.1; Range: 36.0-47.0; Abnormal: Above high normal; Units: %; Status: F Test: MEAN CORPUSCULAR VOLUME; Value: 97.2; Range: 80.0-96.0; Abnormal: Above high normal; Units: fl; Status: F Test: MEAN CORPUSCULAR HEMOGLOBIN; Value: 32.0; Range: 27.0-33.0; Units: pg; Status: F Test: MEAN CORPUSCULAR HGB CONC; Value: 32.9; Range: 32.0-36.5; Units: g/dl; Status: F Test: RED CELL DISTRIBUTION WIDTH; Value: 13.5; Range: 11.5-14.5; Units: %; Status: F Test: PLATELET COUNT, AUTOMATED; Value: 293; Range: 150-450; Units: k/mm3; Status: F Test: NEUTROPHILS %; Value: 80.1; Range: 36.0-66.0; Abnormal: Above high normal; Units: %; Status: F Test: LYMPH %; Value: 13.7; Range: 24.0-44.0; Abnormal: Below low normal; Units: %; Status: F Test: MONO %; Value: 4.0; Range: 0.0-5.0; Units: %; Status: F Test: EOS %; Value: 0.6; Range: 0.0-3.0; Units: %; Status: F Test: BASO %; Value: 0.2; Range: 0.0-1.0; Units: %; Status: F Test: LARGE UNSTAINED CELL %; Value: 1.4; Range: 0.0-4.0; Units: %; Status: F Test: NEUTROPHILS #; Value: 8.0; Range: 1.8-7.7; Abnormal: Above high normal; Units: K/mm3; Status: F Test: LYMPH #; Value: 1.4; Range: 1.5-4.5; Abnormal: Below low normal; Units: K/mm3; Status: F Test: MONO #; Value: 0.4; Range: 0.0-0.8; Units: K/mm3; Status: F Test: EOS #; Value: 0.1; Range: 0.0-0.50; Units: K/mm3; Status: F Test: BASO #; Value: 0.0; Range: 0.0-0.2; Units: K/mm3; Status: F Test: LARGE UNSTAINED CELL #; Value: 0.1; Range: 0.0-0.4; Units: K/mm3; Status: F Lab Order: MED Profile; [facility]' 12/11/16 20:47 Test: GLUCOSE, FASTING; Value: 140; Range: 83-110; Abnormal: Above high normal; Units: MG/DL; Status: F Test: BLOOD UREA NITROGEN; Value: 45; Range: 7-18; Abnormal: Above high normal; Units: MG/DL; Status: F Test: CREATININE FOR GFR; Value: 1.90; Range: 0.55-1.02; Abnormal: Above high normal; Units: MG/DL; Status: F Test: GLOMERULAR FILTRATION RATE; Value: 26.6; Range: >32; Abnormal: Below low normal; Status: F Test: SODIUM LEVEL; Value: 133; Range: 136-145; Abnormal: Below low normal; Units: MEQ/L; Status: F Test: POTASSIUM SERUM; Value: 4.5; Range: 3.5-5.1; Units: MEQ/L; Status: F Test: CHLORIDE LEVEL; Value: 93; Range: 98-107; Abnormal: Below low normal; Units: MEQ/L; Status: F Test: CARBON DIOXIDE LEVEL; Value: 28; Range: 21-32; Units: MEQ/L; Status: F Test: ANION GAP; Value: 12; Range: 8-16; Units: MEQ/L; Status: F Test: CALCIUM LEVEL; Value: 10.7; Range: 8.8-10.2; Abnormal: Above high normal; Units: MG/DL; Status: F Test Note: ; Units are mL/min/1.73 m2 Chronic Kidney Disease Staging per NKF: Stage I & II GFR >=60 Normal to Mildly Decreased Stage III GFR 30-59 Moderately Decreased Stage IV GFR 15-29 Severely Decreased Stage V GFR <15 Very Little GFR Left ESRD GFR <15 on PUBLIC SPEAKING TEACHER Lab Order: Liver Profile; SPEC' 12/11/16 20:47 Test: AST/SGOT; Value: 22; Range: 15-37; Units: U/L; Status: F Test: ALT/SGPT; Value: 23; Range: 12-78; Units: U/L; Status: F Test: ALKALINE PHOSPHATASE; Value: 205; Range: 45-117; Abnormal: Above high normal; Units: U/L; Status: F Test: BILIRUBIN,TOTAL; Value: 0.7; Range: 0.2-1.0; Units: MG/DL; Status: F Test: BILIRUBIN,DIRECT; Value: 0.2; Range: 0.0-0.2; Units: MG/DL; Status: F Test: TOTAL PROTEIN; Value: 9.7; Range: 6.4-8.2; Abnormal: Above high normal; Units: GM/DL; Status: F Test: ALBUMIN; Value: 4.2; Range: 3.2-5.2; Units: GM/DL; Status: F Test: ALBUMIN/GLOBULIN RATIO; Value: 0.76; Range: 1.00-1.93; Abnormal: Below low normal; Status: F Lab Order: Amylase; [facility] 12/11/16 20:47 Test: AMYLASE; Value: 117; Range: 25-115; Abnormal: Above high normal; Units: U/L; Status: F Lab Order: Lipase; [facility] 12/11/16 20:47 Test: LIPASE; Value: 184; Range: 73-393; Units: U/L; Status: F Lab Order: Lactic Acid (Au tube on ice); [facility] 12/11/16 20:47 Test: LACTIC ACID SEPSIS PROTOCOL; Value: 2.6; Range: 0.4-2.0; Abnormal: Above upper panic limits; Units: MMOL/L; Status: F Lab Order: Pt & Aptt; [facility] 12/11/16 20:47 Test: PROTHROMBIN TIME; Value: 32.5; Range: 12.3-14.5; Abnormal: Above high normal; Units: SECONDS; Status: F Test: INR; Value: 3.17; Status: F Test: PARTIAL THROMBOPLASTIN TIME; Value: 51.9; Range: 26.6-37.1; Abnormal: Above high normal; Units: SECONDS; Status: F Test Note: ; THERAPUTIC HUMAN INR VALUES INDICATIONS NORMAL RANGES PROPHYLAXIS/TREATMENT OF: VENOUS THROMBOSIS 2.0-3.0 PULMONARY EMBOLISM 2.0-3.0 PREVENTION OF SYSTEMIC EMBOLISM FROM: TISSUE HEART VALVES 2.0-3.0 ACUTE MYOCARDIAL INFARCTION 2.0-3.0 VALVULAR HEART DISEASE 2.0-3.0 ATRIAL FIBRILLATION 2.0-3.0 MECHANICAL VALVES(HIGH RISK) 2.5-3.5 RECURRENT MYOCARDIAL INFARCTION 2.5-3.5 Lab Order: MED Profile; SPEC'12/11/16 23:15 Test: GLUCOSE, FASTING; Value: 129; Range: 83-110; Abnormal: Above high normal; Units: MG/DL; Status: F Test: BLOOD UREA NITROGEN; Value: 46; Range: 7-18; Abnormal: Above high normal; Units: MG/DL; Status: F Test: CREATININE FOR GFR; Value: 1.68; Range: 0.55-1.02; Abnormal: Above high normal; Units: MG/DL; Status: F Test: GLOMERULAR FILTRATION RATE; Value: 30.6; Range: >32; Abnormal: Below low normal; Status: F Test: SODIUM LEVEL; Value: 137; Range: 136-145; Units: MEQ/L; Status: F Test: POTASSIUM SERUM; Value: 4.8; Range: 3.5-5.1; Units: MEQ/L; Status: F Test: CHLORIDE LEVEL; Value: 100; Range: 98-107; Units: MEQ/L; Status: F Test: CARBON DIOXIDE LEVEL; Value: 26; Range: 21-32; Units: MEQ/L; Status: F Test: ANION GAP; Value: 11; Range: 8-16; Units: MEQ/L; Status: F Test: CALCIUM LEVEL; Value: 8.8; Range: 8.8-10.2; Abnormal: Delta; Units: MG/DL; Status: F Test Note: ; Units are mL/min/1.73 m2 Chronic Kidney Disease Staging per NKF: Stage I & II GFR >=60 Normal to Mildly Decreased Stage III GFR 30-59 Moderately Decreased Stage IV GFR 15-29 Severely Decreased Stage V GFR <15 Very Little GFR Left ESRD GFR <15 on PUBLIC SPEAKING TEACHER Lab Order: Lactic Acid (Au tube on ice); SPEC'M 12/11/16 23:15 Test: LACTIC ACID SEPSIS PROTOCOL; Value: 1.5; Range: 0.4-2.0; Units: MMOL/L; Status: F Lab Order: COMPLETE BLOOD COUNT; SPEC'M 12/12/16 07:29 Test: WHITE BLOOD COUNT; Value: 8.2; Range: 4.0-10.0; Units: K/mm3; Status: F Test: RED BLOOD COUNT; Value: 4.76; Range: 4.00-5.40; Units: M/mm3; Status: F Test: HEMOGLOBIN; Value: 15.5; Range: 12.0-16.0; Abnormal: Delta; Units: g/dl; Status: F Test: HEMATOCRIT; Value: 47.5; Range: 36.0-47.0; Abnormal: Above high normal; Units: %; Status: F Test: MEAN CORPUSCULAR VOLUME; Value: 99.8; Range: 80.0-96.0; Abnormal: Above high normal; Units: fl; Status: F Test: MEAN CORPUSCULAR HEMOGLOBIN; Value: 32.6; Range: 27.0-33.0; Units: pg; Status: F Test: MEAN CORPUSCULAR HGB CONC; Value: 32.7; Range: 32.0-36.5; Units: g/dl; Status: F Test: RED CELL DISTRIBUTION WIDTH; Value: 14.0; Range: 11.5-14.5; Units: %; Status: F Test: PLATELET COUNT, AUTOMATED; Value: 221; Range: 150-450; Units: k/mm3; Status: F Lab Order: COMPLETE COMPHRENSIVE METABOLI; [facility] 12/12/16 07:29 Test: GLUCOSE, FASTING; Value: 127; Range: 83-110; Abnormal: Above high normal; Units: MG/DL; Status: F Test: BLOOD UREA NITROGEN; Value: 44; Range: 7-18; Abnormal: Above high normal; Units: MG/DL; Status: F Test: CREATININE FOR GFR; Value: 1.68; Range: 0.55-1.02; Abnormal: Above high normal; Units: MG/DL; Status: F Test: GLOMERULAR FILTRATION RATE; Value: 30.6; Range: >32; Abnormal: Below low normal; Status: F Test: SODIUM LEVEL; Value: 139; Range: 136-145; Units: MEQ/L; Status: F Test: POTASSIUM SERUM; Value: 4.8; Range: 3.5-5.1; Units: MEQ/L; Status: F Test: CHLORIDE LEVEL; Value: 102; Range: 98-107; Units: MEQ/L; Status: F Test: CARBON DIOXIDE LEVEL; Value: 24; Range: 21-32; Units: MEQ/L; Status: F Test: ANION GAP; Value: 13; Range: 8-16; Units: MEQ/L; Status: F Test: CALCIUM LEVEL; Value: 9.6; Range: 8.8-10.2; Units: MG/DL; Status: F Test: AST/SGOT; Value: 19; Range: 15-37; Units: U/L; Status: F Test: ALT/SGPT; Value: 18; Range: 12-78; Units: U/L; Status: F Test: ALKALINE PHOSPHATASE; Value: 159; Range: 45-117; Abnormal: Above high normal; Units: U/L; Status: F Test: BILIRUBIN,TOTAL; Value: 0.6; Range: 0.2-1.0; Units: MG/DL; Status: F Test: TOTAL PROTEIN; Value: 7.9; Range: 6.4-8.2; Units: GM/DL; Status: F Test: ALBUMIN; Value: 3.3; Range: 3.2-5.2; Abnormal: Delta; Units: GM/DL; Status: F Test: ALBUMIN/GLOBULIN RATIO; Value: 0.72; Range: 1.00-1.93; Abnormal: Below low normal; Status: F Test Note: ; Units are mL/min/1.73 m2 Chronic Kidney Disease Staging per NKF: Stage I & II GFR >=60 Normal to Mildly Decreased Stage III GFR 30-59 Moderately Decreased Stage IV GFR 15-29 Severely Decreased Stage V GFR <15 Very Little GFR Left ESRD GFR <15 on PUBLIC SPEAKING TEACHER Radiology Order: CT ABD & PELVIS: IV Contrast Only Test: CT ABD & PELVIS: IV Contrast Only REASON FOR EXAMINATION: Abdomen Pain; ; CLINICAL HISTORY: Abdominal pain.; TECHNIQUE: Multiple axial, sagittal and coronal CT images were obtained through the abdomen and pelvi; s after administration of oral and intravenous contrast material. Images were obtained before and aft; er IV contrast administration.; COMMENTS:; The liver is of uniform attenuation without mass or defect. There is pneumobilia. There is mild bilia; ry ductal dilatation. The spleen is normal. The gallbladder is surgically absent. The pancreas is of; normal contour and attenuation characteristics. There is no evidence of adrenal mass.; Bilateral renal cysts with the largest measuring 4.6 cm on the right side.; Both kidneys demonstrate prompt and equal nephrograms. The kidneys are normal in size, shape and conf; iguration. There is no evidence of renal or ureteral mass. No renal or ureteral calculi are identifie; d. There is no hydroureter or hydronephrosis.; No evidence for appendicitis. There is mild ascites. Uncomplicated calcified aneurysm of the splenic; artery measuring 1.9 cm.; There is no evidence of intrinsic or extrinsic bladder mass. Moderate partial small bowel obstruction; . Swirling of the mesentery in the right lower quadrant at the level of the transition zone in the di; stal ileum. Uncomplicated clonic diverticulosis.; Images of the lung bases show no evidence of pleural or parenchymal mass. There are no pleural effusi; ons.moderate cardiomegaly. Bilateral basilar groundglass densities of the lungs. Pacemaker wires are; in good position. The bony structures are free of lytic or blastic lesions. Multilevel degenerative c; hanges are seen involving the thoracolumbar spine. Scattered calcifications are seen involving the ao; rta and major branches compatible with atherosclerosis. Chronic benign sacral nerve root cysts are no; paulette the largest measuring 3.2 cm.; IMPRESSION:; Moderate partial small bowel obstruction. Transition zone at the level of the terminal ileum.; Swirling of the mesentery in the right lower quadrant at the level of the transition zone in the dist; al ileum. This is a nonspecific finding that can be secondary to an internal hernia. This needs a zoe; gical consultation.; No associated bowel perforation or pneumatosis intestinalis.; Mildly dilated biliary tree.; Pneumobilia.; Cholecystectomy.; Basilar ground glass densities of the lungs. 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 cs11 12:31 Patient left the ED. deg Signatures: Dispatcher [employer] EDMS Mara Green, Tmd Teacher Assistant Unit deg Mary Alfaro, RN RN Dinah Bruner, Reg Reg gb Rm Mendoza, APPLIANCE SERVICE REPRESENTATIVE APPLIANCE SERVICE REPRESENTATIVE [id number] Brittney Martinez, RN RN sls1 Cristian Ramirez, DO DO cs11 Nitza Schneider Hillary, Reg Reg hs2 Ayana Urias,RN RN kas2 Chart Complete MTDD
[2016-12-14 14:00] VITALS: BP 111/57
--- NOTE | 2016-12-14 14:05 | REP ---
Clinical: Small bowel obstruction. Technique: Upright view of the chest with supine and upright views of the abdomen and pelvis. Findings: Frontal upright view of the chest demonstrates chronic cardiomegaly. Nasogastric tube extends into the left upper quadrant. Bowel gas pattern is nonspecific. Vascular calcifications noted. Skeletal structures demonstrate age-related changes. Impression: Nonspecific bowel gas pattern. Signed by Roney Luz MD 12/14/2016 01:57 P
[2016-12-14] MEDS: LR 1,000 ML IV SCH (18:34)
[2016-12-14 22:00] VITALS: BP 152/71
[2016-12-15 06:00] VITALS: BP 126/74
[2016-12-15 06:58] LABS: MEAN CORPUSCULAR HEMOGLOBIN 33.1 pg (27.0-33.0); MEAN CORPUSCULAR HGB CONC 32.5 g/dl (32.0-36.5); MEAN CORPUSCULAR VOLUME 101.9 fl (80.0-96.0); RED CELL DISTRIBUTION WIDTH 13.7 % (11.5-14.5); WHITE BLOOD COUNT 5.7 K/mm3 (4.0-10.0)
[2016-12-15 07:03] LABS: INR 1.46
[2016-12-15 07:09] LABS: ALBUMIN 2.8 GM/DL (3.2-5.2); ALBUMIN/GLOBULIN RATIO 0.8 (1.00-1.93); BILIRUBIN,TOTAL 0.8 MG/DL (0.2-1.0); CALCIUM LEVEL 8.8 MG/DL (8.8-10.2); CREATININE FOR GFR 1.17 MG/DL (0.55-1.02); GLOMERULAR FILTRATION RATE 46.5 (>32); POTASSIUM SERUM 4.4 MEQ/L (3.5-5.1); TOTAL PROTEIN 6.3 GM/DL (6.4-8.2)
[2016-12-15] MEDS ORDERED: GOLYTELY SOLN 4000 ML BTL NG ONE (11:00)
[2016-12-15] MEDS: LEVOTHYROXINE 100 MCG (0.1MG) VIAL IV SCH (11:11)
[2016-12-15] MEDS: PANTOPRAZOLE 40MG INJ (PROTONIX) (C9113) IV SCH (11:11)
[2016-12-15] MEDS: LR 1,000 ML IV SCH (11:12)
[2016-12-15] MEDS ORDERED: FUROSEMIDE 20 MG TAB PO ONE (13:00)
--- NOTE | 2016-12-15 13:01 | IPNPDOC ---
Subjective Date Seen The patient was seen on 12/15/16. Subjective Chief Complaint/HPI The patient is a 86-year-old female admitted with a reason for visit of Small Bowel Obstruction. Events since last encounter Planning on golytely to assist with PSBO. + flatus. Patient denies c/o. Constitutional: Denies: Chills, Fever, Night Sweats ENT: Denies: Dysphagia, Ear Pain, Head Aches Pulmonary: Denies: Cough, Dyspnea Cardiovascular: Denies: Chest Pain, Lt Headedness, Orthopnea, Palpitations, Paroxysmal Noc. Dyspnea Gastrointestinal: Reports: Constipation, Nausea, Denies: Abdominal Pain, Diarrhea, Vomiting Genitourinary: Denies: Dysuria, Frequency, Incontinence, Retention Psych: Reports: Mood Normal, Denies: Depression, Memory Issues Objective Physical Examination General Exam: Positive: No Acute Distress Eye Exam: Positive: PERRLA Neck Exam: Positive: Supple Chest Exam: Positive: Clear to auscultation Heart Exam: Positive: Rate Normal Abdomen Exam: Positive: Normal bowel sounds, Soft, Tenderness Extremity Exam: Negative: Edema Neuro Exam: Positive: Strength at 5/5 X4 ext Psych Exam: Positive: Mental status NL Assessment /Plan Problems (1) Small bowel obstruction Status: Acute Problem Text: continue NPO/NGT daughter, Massiel, HCP, at bedside-affirms DNR but would agree to surgery if needed 12/15/16: Pre surgery note: GoLytely for PSBO management. consider advancing diet after. 12/14/16: Per surgery. imaging today, advance diet as indicated. NGT clamped. + flatus 12/13/16 resolved abdominal pain, 1750 NGT output 12/12, repeat AXR, d/c NGT in AM if continues to improved 12/12/16 CT AP c/w partial SBO c transition zone at terminal ileum Shalini on consult (2) Paroxysmal atrial fibrillation Status: Chronic Response to Treatment: Stable Problem Text: chronically VKA for anticoag/nothing for rate control 12/15/16: Warfarin 2 mg po x 1 today. INR in am 12/14/16: INR 2.0. Continue to HOLD Coumadin. Eval INR in am. 12/12/16 7.8 s abnormal bleeding/bruising/stable hgb-vit K 5 SC given 12/11/16 INR 3.2-plan + heparin gtt (3) Diastolic CHF Status: Chronic Response to Treatment: Stable Problem Text: 12/15/2016: Lasix 20 mg po x 1. + 2liters on I/O elevated sodium. On LASix 40 mg bid and spironlolactone 50 mg bid at home. 12/14/2016: LR at 50 cc/hour. NPO. Appears compensated. Cr 1.2 12/13/16 persistent mild decompensation, BNP 301, decrease LR to 50cc/H 12/12/16 mild decompensation off HD fur 80 BID/choco 50/K 80 BID and on LR at 100 cc/H; therefore, SLIV (4) Atrial fibrillation, chronic Status: Chronic Response to Treatment: Stable Problem Text: 12/14/2016: warfarin on HOLD. INR 2.0. recheck INR in am. paroxysmal (5) CAD (coronary artery disease) Status: Chronic Response to Treatment: Stable Problem Text: No active symptoms (6) Hypothyroid Status: Chronic Response to Treatment: Stable Problem Text: 09/2016 TSH 3.8 on LT4 88 12/12 LT4 37.5 IV QD (7) CKD (chronic kidney disease) stage 3, GFR 30-59 ml/min Status: Chronic Response to Treatment: Stable Problem Text: 12/15/16: Cr. 1.18. Na+ 154. K+ 4.4 12/14/2016: Cr. 1.2 stable cr/lytes baseline cr 1.5 Plan/VTE VTE Prophylaxis Ordered?: Yes Plan Attending physician note: Patient seen and examined. Case reviewed with RPA. VS, I&O, 24H, [facility] Vital Signs/I&O Vital Signs Date Time Temp Pulse Resp B/P Pulse Ox O2 Delivery O2 Flow Rate FiO2 12/15/16 06:00 99.1 78 20 126/74 96 Room Air I&O- Last 24 Hours up to 6 AM 12/15/16 06:00 Intake Total 500 ml Output Total 50 ml Balance 450 ml Laboratory Data 24H LABS Laboratory Tests 2 12/15/16 06:36: Blood Urea Nitrogen 36H, Creatinine 1.17H, Sodium Level 154H, Potassium Level 4.4, Chloride Level 116H, Carbon Dioxide Level 23, Calcium Level 8.8, Aspartate Amino Transf (AST/SGOT) 21, Alanine Aminotransferase (ALT/SGPT) 14, Alkaline Phosphatase 133H, Total Bilirubin 0.8, Total Protein 6.3L, Albumin 2.8L, Albumin /Globulin Ratio 0.80L, Anion Gap 15, Glomerular Filtration Rate 46.5, Prothromb Time International Ratio 1.46, Prothrombin Time 17.8H CBC/BMP Laboratory Tests 12/15/16 06:36 Calcium Level 8.8, Aspartate Amino Transf (AST/SGOT) 21, Alanine Aminotransferase (ALT/SGPT) 14, Alkaline Phosphatase 133 H, Total Bilirubin 0.8 , Total Protein 6.3 L, Albumin 2.8 L, Red Blood Count 4.28, Mean Corpuscular Volume 101.9 H, Mean Corpuscular Hemoglobin 33.1 H, Mean Corpuscular Hemoglobin Concent 32.5, Red Cell Distribution Width 13.7 Zoey Lund [facility] Dec 15, 2016 13:01 Etienne Cardenas M.D. Dec 16, 2016 12:56
[2016-12-15 14:00] VITALS: BP 165/78
[2016-12-15] MEDS ORDERED: WARFARIN SOD 2 MG TAB PO ONE (17:00)
[2016-12-15 22:00] VITALS: BP 152/74
[2016-12-16 06:00] VITALS: BP 153/79
[2016-12-16 07:12] LABS: INR 1.31; MEAN CORPUSCULAR HEMOGLOBIN 33.2 pg (27.0-33.0); MEAN CORPUSCULAR HGB CONC 32.9 g/dl (32.0-36.5); MEAN CORPUSCULAR VOLUME 100.7 fl (80.0-96.0); RED CELL DISTRIBUTION WIDTH 13.8 % (11.5-14.5)
[2016-12-16 07:25] LABS: ALBUMIN 2.6 GM/DL (3.2-5.2); ALBUMIN/GLOBULIN RATIO 0.67 (1.00-1.93); BILIRUBIN,TOTAL 0.7 MG/DL (0.2-1.0); CALCIUM LEVEL 8.7 MG/DL (8.8-10.2); CREATININE FOR GFR 1.16 MG/DL (0.55-1.02); GLOMERULAR FILTRATION RATE 46.9 (>32); POTASSIUM SERUM 3.5 MEQ/L (3.5-5.1); TOTAL PROTEIN 6.5 GM/DL (6.4-8.2)
[2016-12-16] MEDS: LEVOTHYROXINE 100 MCG (0.1MG) VIAL IV SCH (08:48)
[2016-12-16] MEDS: OMEPRAZOLE 20 MG CAP PO SCH (08:48)
[2016-12-16] MEDS: SUCRALFATE 1 GM TAB PO SCH ×4 (08:49→21:06)
[2016-12-16] MEDS: LR 1,000 ML IV SCH (10:39)
--- NOTE | 2016-12-16 12:14 | IPNPDOC ---
Subjective Date Seen The patient was seen on 12/16/16. Subjective Chief Complaint/HPI The patient is a 86-year-old female admitted with a reason for visit of Small Bowel Obstruction. Events since last encounter Pt states she is feeling better today. States appetite has been good. Denies Abd pain, N/V. Denies CP, SOB. Constitutional: Denies: Chills, Fever Pulmonary: Denies: Dyspnea Cardiovascular: Denies: Chest Pain Gastrointestinal: Denies: Abdominal Pain, Nausea, Vomiting Objective Physical Examination General Exam: Positive: No Acute Distress Eye Exam: Positive: PERRLA Neck Exam: Positive: Supple, Negative: JVD Chest Exam: Positive: Clear to auscultation Heart Exam: Positive: Rate Normal Abdomen Exam: Positive: Normal bowel sounds, Soft, Tenderness Extremity Exam: Negative: Edema Neuro Exam: Positive: Strength at 5/5 X4 ext Psych Exam: Positive: Mental status NL Assessment /Plan Problems (1) Small bowel obstruction Status: Acute Problem Text: 12/16 - Dr Loya following. Taking PO. continue NPO/NGT daughter, Massiel, HCP, at bedside-affirms DNR but would agree to surgery if needed 12/15/16: Pre surgery note: GoLytely for PSBO management. consider advancing diet after. 12/14/16: Per surgery. imaging today, advance diet as indicated. NGT clamped. + flatus 12/13/16 resolved abdominal pain, 1750 NGT output 12/12, repeat AXR, d/c NGT in AM if continues to improved 12/12/16 CT AP c/w partial SBO c transition zone at terminal ileum Shalini on consult (2) Paroxysmal atrial fibrillation Status: Chronic Response to Treatment: Stable Problem Text: 12/16 - INR 1.3. Coumadin was initially reversed and held, but restarted at 2 mg last night. Will give Coumadin 3 mg today (Home dose 6mg M/W and 3 mg ROW) chronically VKA for anticoag/nothing for rate control 12/15/16: Warfarin 2 mg po x 1 today. INR in am 12/14/16: INR 2.0. Continue to HOLD Coumadin. Eval INR in am. 12/12/16 7.8 s abnormal bleeding/bruising/stable hgb-vit K 5 SC given 12/11/16 INR 3.2-plan + heparin gtt (3) Diastolic CHF Status: Chronic Response to Treatment: Stable Problem Text: 12/16 - Out pt Lasix and spironolactone held. Did receive lasix yesterday. Has been getting IVF but now is taking PO. Will D/C IVF. Na 154. 12/15/2016: Lasix 20 mg po x 1. + 2liters on I/O elevated sodium. On LASix 40 mg bid and spironlolactone 50 mg bid at home. 12/14/2016: LR at 50 cc/hour. NPO. Appears compensated. Cr 1.2 12/13/16 persistent mild decompensation, BNP 301, decrease LR to 50cc/H 12/12/16 mild decompensation off HD fur 80 BID/choco 50/K 80 BID and on LR at 100 cc/H; therefore, SLIV (4) Atrial fibrillation, chronic Status: Chronic Response to Treatment: Stable Problem Text: 12/16 - INR 1.3. Coumadin was initially reversed and held, but restarted at 2 mg last night. Will give Coumadin 3 mg today (Home dose 6mg M/ and 3 mg ROW) 12/14/2016: warfarin on HOLD. INR 2.0. recheck INR in am. paroxysmal (5) CAD (coronary artery disease) Status: Chronic Response to Treatment: Stable Problem Text: No active symptoms (6) Hypothyroid Status: Chronic Response to Treatment: Stable Problem Text: 09/2016 TSH 3.8 on LT4 88 12/12 LT4 37.5 IV QD (7) CKD (chronic kidney disease) stage 3, GFR 30-59 ml/min Status: Chronic Response to Treatment: Stable Problem Text: 12/16 - Creat 1.16. Na 154. K 3.5. 12/15/16: Cr. 1.18. Na+ 154. K+ 4.4 12/14/2016: Cr. 1.2 stable cr/lytes baseline cr 1.5 Plan/VTE VTE Prophylaxis Ordered?: Yes Plan Attending note: I saw and evaluated the patient, and I agree with the plan of care as discussed and documented by Ishan Yates. Katie Sousa MD VS, I&O, 24H, Fishbone Vital Signs/I&O Vital Signs Date Time Temp Pulse Resp B/P Pulse Ox O2 Delivery O2 Flow Rate FiO2 12/16/16 06:00 98.3 77 18 153/79 91 Room Air I&O- Last 24 Hours up to 6 AM 12/16/16 05:59 Intake Total 500 ml Balance 500 ml Laboratory Data 24H LABS Laboratory Tests 2 12/16/16 06:44: Blood Urea Nitrogen 30H, Creatinine 1.16H, Sodium Level 154H, Potassium Level 3.5#, Chloride Level 116H, Carbon Dioxide Level 28, Calcium Level 8.7L, Aspartate Amino Transf (AST/SGOT) 20, Alanine Aminotransferase (ALT/SGPT) 13, Alkaline Phosphatase 126H, Total Bilirubin 0.7, Total Protein 6.5, Albumin 2.6L , Albumin/Globulin Ratio 0.67L, Anion Gap 10, Glomerular Filtration Rate 46.9, Prothromb Time International Ratio 1.31, Prothrombin Time 16.4H CBC/BMP Laboratory Tests 12/16/16 06:44 Calcium Level 8.7 L, Aspartate Amino Transf (AST/SGOT) 20, Alanine Aminotransferase (ALT/SGPT) 13, Alkaline Phosphatase 126 H, Total Bilirubin 0.7 , Total Protein 6.5, Albumin 2.6 L, Red Blood Count 4.27, Mean Corpuscular Volume 100.7 H, Mean Corpuscular Hemoglobin 33.2 H, Mean Corpuscular Hemoglobin Concent 32.9, Red Cell Distribution Width 13.8 Josh Yates Dec 16, 2016 12:14 KATIE SOUSA MD Dec 17, 2016 20:42
[2016-12-16] MEDS ORDERED: WARFARIN SOD 3 MG TAB PO ONE (17:00)
[2016-12-17 06:49] LABS: MEAN CORPUSCULAR HEMOGLOBIN 32.9 pg (27.0-33.0); MEAN CORPUSCULAR HGB CONC 32.8 g/dl (32.0-36.5); MEAN CORPUSCULAR VOLUME 100.2 fl (80.0-96.0); RED CELL DISTRIBUTION WIDTH 13.7 % (11.5-14.5)
[2016-12-17 06:53] LABS: INR 1.28
[2016-12-17 07:14] LABS: ALBUMIN 2.5 GM/DL (3.2-5.2); ALBUMIN/GLOBULIN RATIO 0.78 (1.00-1.93); BILIRUBIN,TOTAL 0.5 MG/DL (0.2-1.0); CALCIUM LEVEL 8.4 MG/DL (8.8-10.2); CREATININE FOR GFR 1.1 MG/DL (0.55-1.02); GLOMERULAR FILTRATION RATE 49.9 (>32); POTASSIUM SERUM 4.3 MEQ/L (3.5-5.1); TOTAL PROTEIN 5.7 GM/DL (6.4-8.2)
[2016-12-17] MEDS: OMEPRAZOLE 20 MG CAP PO SCH (08:43)
[2016-12-17] MEDS: SUCRALFATE 1 GM TAB PO SCH ×4 (08:43→20:33)
[2016-12-17] MEDS: LEVOTHYROXINE 100 MCG (0.1MG) VIAL IV SCH (08:43)
--- NOTE | 2016-12-17 11:46 | IPNPDOC ---
Subjective Date Seen The patient was seen on 12/17/16. Subjective Chief Complaint/HPI The patient is a 86-year-old female admitted with a reason for visit of Small Bowel Obstruction. Events since last encounter Pt having more distention since yesterday. Passing some gas, and reports small BM. No abdominal pain or nausea. Denies fevers, chills, or sweats. Constitutional: Denies: Chills, Fever Pulmonary: Denies: Cough, Dyspnea Cardiovascular: Denies: Chest Pain, Palpitations Gastrointestinal: Reports: Constipation, Denies: Abdominal Pain, Diarrhea, Nausea, Vomiting Other systems 10 pt ROS otherwise negative Objective Physical Examination General Exam: Positive: No Acute Distress Eye Exam: Positive: Conjunctiva & lids normal, PERRLA ENT Exam: Positive: Mucous membr. moist/pink Chest Exam: Positive: Clear to auscultation, Normal air movement, Negative: Rales, Rhonchi, Wheezing Heart Exam: Positive: Normal S1, Normal S2, Rate Normal Abdomen Exam: Positive: Normal bowel sounds, Other (distended), Soft, Negative: Tenderness Extremity Exam: Negative: Edema Neuro Exam: Positive: Strength at 5/5 X4 ext Psych Exam: Positive: Mental status NL Assessment /Plan Problems (1) Small bowel obstruction Status: Acute Problem Text: Pt is DNR, but HCP ok with surg if needed. Taking PO well yesterday, but now somewhat distended. KUB shows distended bowel consistent with SOB. Shalini recommended NG if pt develops nausea or vomiting. -Dr Loya following -reduce diet per surg recs (2) Paroxysmal atrial fibrillation Status: Chronic Response to Treatment: Stable Problem Text: INR 1.2. After reversal for possible surg. Chronically VKA for anticoag/nothing for rate control. Coumadin 3 mg yesterday (Home dose 6mg M/W and 3 mg ROW). - coumadin 5 mg today (3) Diastolic CHF Status: Chronic Response to Treatment: Stable Problem Text: On LASix 40 mg bid and spironlolactone 50 mg bid at home. Outpt Lasix and spironolactone held. Did receive lasix yesterday. Sodium improved off of IV fluids. (4) Atrial fibrillation, chronic Status: Chronic Response to Treatment: Stable Problem Text: 12/16 - INR 1.3. Coumadin was initially reversed and held, but restarted at 2 mg last night. Will give Coumadin 3 mg today (Home dose 6mg M/W and 3 mg ROW) 12/14/2016: warfarin on HOLD. INR 2.0. recheck INR in am. paroxysmal (5) CAD (coronary artery disease) Status: Chronic Response to Treatment: Stable Problem Text: No active symptoms (6) Hypothyroid Status: Chronic Response to Treatment: Stable Problem Text: TSH 3.8 on levothyroxine (7) CKD (chronic kidney disease) stage 3, GFR 30-59 ml/min Status: Chronic Response to Treatment: Stable Problem Text: 12/16 - Creat 1.16. Na 154. K 3.5. 12/15/16: Cr. 1.18. Na+ 154. K+ 4.4 12/14/2016: Cr. 1.2 stable cr/lytes baseline cr 1.5 Plan/VTE VTE Prophylaxis Ordered?: Yes VS, I&O, 24H, Fishbone Vital Signs/I&O Vital Signs Date Time Temp Pulse Resp B/P Pulse Ox O2 Delivery O2 Flow Rate FiO2 12/16/16 20:00 Room Air 12/16/16 06:00 98.3 77 18 153/79 91 I&O- Last 24 Hours up to 6 AM 12/17/16 05:59 Intake Total 1800 ml Balance 1800 ml Laboratory Data 24H LABS Laboratory Tests 2 12/17/16 06:39: Blood Urea Nitrogen 24H, Creatinine 1.10H, Sodium Level 149H, Potassium Level 4.3#, Chloride Level 113H, Carbon Dioxide Level 27, Calcium Level 8.4L, Aspartate Amino Transf (AST/SGOT) 20, Alanine Aminotransferase (ALT/SGPT) 15, Alkaline Phosphatase 118H, Total Bilirubin 0.5, Total Protein 5.7L, Albumin 2.5L , Albumin/Globulin Ratio 0.78L, Anion Gap 9, Glomerular Filtration Rate 49.9, Prothromb Time International Ratio 1.28, Prothrombin Time 16.1H CBC/BMP Laboratory Tests 12/17/16 06:39 Calcium Level 8.4 L, Aspartate Amino Transf (AST/SGOT) 20, Alanine Aminotransferase (ALT/SGPT) 15, Alkaline Phosphatase 118 H, Total Bilirubin 0.5 , Total Protein 5.7 L, Albumin 2.5 L, Red Blood Count 4.17, Mean Corpuscular Volume 100.2 H, Mean Corpuscular Hemoglobin 32.9, Mean Corpuscular Hemoglobin Concent 32.8, Red Cell Distribution Width 13.7 KATIE BETTENCOURT MD Dec 17, 2016 11:46
--- NOTE | 2016-12-17 13:16 | REP ---
Clinical: Bowel obstruction. Technique: Upright view of the chest with supine and upright views of the abdomen and pelvis. Comparison: 12/13/2016. Findings: Dilated loops of small bowel with air-fluid levels suggest continuous element of obstruction. No obvious free air. Frontal view of the chest demonstrates cardiomegaly with presumed interstitial edema, bibasilar opacities and small pleural effusions. Skeletal structures demonstrate osteopenia and degenerative changes. Extensive atherosclerotic calcifications noted primarily involving the aorta and splenic vessels. Impression: 1. Continued evidence to suggest small bowel obstruction. 2. Cardiomegaly and chronic interstitial edema with bibasilar infiltrate/atelectasis and small pleural effusions. Signed by Roney Luz MD 12/17/2016 01:08 P
[2016-12-17 14:00] VITALS: BP 144/67
[2016-12-17] MEDS ORDERED: WARFARIN SOD 5 MG TAB PO ONE (17:00)
[2016-12-17 22:00] VITALS: BP 161/85
[2016-12-18 07:08] LABS: MEAN CORPUSCULAR HEMOGLOBIN 33.3 pg (27.0-33.0); MEAN CORPUSCULAR HGB CONC 33.1 g/dl (32.0-36.5); MEAN CORPUSCULAR VOLUME 100.5 fl (80.0-96.0); RED CELL DISTRIBUTION WIDTH 13.8 % (11.5-14.5); WHITE BLOOD COUNT 6.4 K/mm3 (4.0-10.0)
[2016-12-18 07:15] LABS: INR 1.31
[2016-12-18 07:24] LABS: ALBUMIN 2.2 GM/DL (3.2-5.2); ALBUMIN/GLOBULIN RATIO 0.63 (1.00-1.93); ALKALINE PHOSPHATASE 102 U/L (45-117); ALT/SGPT 15 U/L (12-78); ANION GAP 9 MEQ/L (8-16); AST/SGOT 17 U/L (15-37); BILIRUBIN,TOTAL 0.5 MG/DL (0.2-1.0); BLOOD UREA NITROGEN 20 MG/DL (7-18); CALCIUM LEVEL 8.1 MG/DL (8.8-10.2); CARBON DIOXIDE LEVEL 24 MEQ/L (21-32); CHLORIDE LEVEL 111 MEQ/L (98-107); GLOMERULAR FILTRATION RATE > 60.0 (>32); GLUCOSE, FASTING 89 MG/DL (83-110); POTASSIUM SERUM 3.9 MEQ/L (3.5-5.1); SODIUM LEVEL 144 MEQ/L (136-145); TOTAL PROTEIN 5.7 GM/DL (6.4-8.2)
[2016-12-18] MEDS: OMEPRAZOLE 20 MG CAP PO SCH (08:24)
[2016-12-18] MEDS: SUCRALFATE 1 GM TAB PO SCH ×4 (08:24→21:59)
--- NOTE | 2016-12-18 09:57 | REP ---
Clinical: Follow up bowel obstruction. Comparison: 12/17/2016. Technique: Upright view of the chest with supine and upright views of the abdomen and pelvis. Findings: Dilated air filled loops of small bowel are again appreciated suggesting continued small bowel obstruction. Remainder of the abdomen and pelvis demonstrates chronic stable changes. Frontal view of the chest demonstrates stable cardiomegaly and chronic interstitial changes along with superimposed bibasilar infiltrates and small left pleural reaction. Impression: 1. Continued evidence to suggest small bowel obstruction similar to prior examination. 2. Chronic cardiomegaly and interstitial changes with suspected small bibasilar atelectasis and trace left pleural reaction. Signed by Roney Luz MD 12/18/2016 09:48 A
[2016-12-18] MEDS ORDERED: IPRATROPIUM 0.5MG/ALBUTEROL 2.5MG INH SOL UD 3ML (DUONEB)(J7620) NEB PRN (12:45)
[2016-12-18] MEDS: LEVOTHYROXINE 100 MCG (0.1MG) VIAL IV SCH (13:22)
[2016-12-18] MEDS: HEPARIN SOD (PORCINE) 5000 UNITS/ML VIAL SQ SCH (13:22)
[2016-12-18 14:00] VITALS: BP 134/65
--- NOTE | 2016-12-18 16:42 | IPNPDOC ---
Subjective Date Seen The patient was seen on 12/18/16. Subjective Chief Complaint/HPI The patient is a 86-year-old female admitted with a reason for visit of Small Bowel Obstruction. Events since last encounter Pt very upset at the prospect of possible surgery tomorrow if her KUB is not improved. However, denies pain, nausea, or vomiting. Passing some gas, but no stools today. Has tolerated some clears this morning. Nursing reports some wheezing with breathing this AM. General: Denies: Chills, Fatigue, Malaise, Normal Appetite (decreased) Skin: Denies: Lesions, Rash Pulmonary: Reports: Other Symptoms (Wheezing), Denies: Cough, Dyspnea Cardiovascular: Denies: Chest Pain, Orthopnea, Palpitations Gastrointestinal: Denies: Abdominal Pain, Diarrhea, Nausea, Vomiting Psych: Reports: Anxiety, Other Psych (Tearful with news of possible lysis of adhesions) Objective Physical Examination General Exam: Positive: No Acute Distress Eye Exam: Positive: PERRLA ENT Exam: Positive: Mucous membr. moist/pink Neck Exam: Positive: Supple, Negative: JVD Chest Exam: Positive: Clear to auscultation Heart Exam: Positive: Rate Normal Abdomen Exam: Positive: Normal bowel sounds, Other (Distended), Soft, Negative: Tenderness Extremity Exam: Negative: Edema Neuro Exam: Positive: Normal Speech Psych Exam: Positive: Anxiety, Mental status NL Assessment /Plan Problems (1) Small bowel obstruction Status: Acute Problem Text: Pt is DNR, but HCP ok with surg if needed. Cont to take some clear, but also getting more distended. KUB shows persistently distended bowel consistent with SOB. No nausea or vomiting, but Analiliaden indicating pt will likely need YESSI if not improved on KUB. Will plan for NPO s MN for possible YESSI. -Dr Loya following -NPO s MN -NG per Mark to decompress prior to surg; will having nursing insert after pt is NPO (2) Paroxysmal atrial fibrillation Status: Chronic Response to Treatment: Stable Problem Text: INR 1.2. After reversal for possible surg. Chronically VKA for anticoag/nothing for rate control. (Home dose 6mg M/W and 3 mg ROW). Pt to go for possible YESSI tomorrow. - hold coumadin today (3) Diastolic CHF Status: Chronic Response to Treatment: Stable Problem Text: On LASix 40 mg bid and spironlolactone 50 mg bid at home. Outpt Lasix and spironolactone held. Sodium improved off of IV fluids. (4) Atrial fibrillation, chronic Status: Chronic Response to Treatment: Stable Problem Text: INR 1.3. Hold coumadin for possible YESSI tomorrow with Shalini (5) CAD (coronary artery disease) Status: Chronic Response to Treatment: Stable Problem Text: No active symptoms (6) Hypothyroid Status: Chronic Response to Treatment: Stable Problem Text: TSH 3.8 on levothyroxine (7) CKD (chronic kidney disease) stage 3, GFR 30-59 ml/min Status: Chronic Response to Treatment: Stable Problem Text: 12/16 - Creat 1.16. Na 154. K 3.5. 12/15/16: Cr. 1.18. Na+ 154. K+ 4.4 12/14/2016: Cr. 1.2 stable cr/lytes baseline cr 1.5 Plan/VTE VTE Prophylaxis Ordered?: Yes VS, I&O, [facility], [facility] Vital Signs/I&O Vital Signs Date Time Temp Pulse Resp B/P Pulse Ox O2 Delivery O2 Flow Rate FiO2 12/18/16 08:32 98 Nasal Cannula 2.0 12/17/16 22:00 98.2 72 16 161/85 I&O- Last 24 Hours up to 6 AM 12/18/16 06:00 Intake Total 1560 ml Balance 1560 ml Laboratory Data 24H LABS Laboratory Tests 2 12/18/16 06:35: Blood Urea Nitrogen 20H, Creatinine 0.80, Sodium Level 144, Potassium Level 3.9 , Chloride Level 111H, Carbon Dioxide Level 24, Calcium Level 8.1L, Aspartate Amino Transf (AST/SGOT) 17, Alanine Aminotransferase (ALT/SGPT) 15, Alkaline Phosphatase 102, Total Bilirubin 0.5, Total Protein 5.7L, Albumin 2.2L, Albumin/ Globulin Ratio 0.63L, Anion Gap 9, Glomerular Filtration Rate > 60.0, Prothromb Time International Ratio 1.31, Prothrombin Time 16.4H CBC/BMP Laboratory Tests 12/18/16 06:35 Calcium Level 8.1 L, Aspartate Amino Transf (AST/SGOT) 17, Alanine Aminotransferase (ALT/SGPT) 15, Alkaline Phosphatase 102, Total Bilirubin 0.5, Total Protein 5.7 L, Albumin 2.2 L 12/18/16 06:36 Red Blood Count 4.04, Mean Corpuscular Volume 100.5 H, Mean Corpuscular Hemoglobin 33.3 H, Mean Corpuscular Hemoglobin Concent 33.1, Red Cell Distribution Width 13.8 KATIE BETTENCOURT MD Dec 18, 2016 16:42
[2016-12-18 22:00] VITALS: BP 147/80
[2016-12-19] MEDS: HEPARIN SOD (PORCINE) 5000 UNITS/ML VIAL SQ SCH ×2 (02:00→10:48)
[2016-12-19] MEDS: LR 1,000 ML IV SCH ×2 (02:00→20:00)
[2016-12-19 06:00] VITALS: BP 138/60
[2016-12-19 06:51] LABS: MEAN CORPUSCULAR HEMOGLOBIN 33.2 pg (27.0-33.0); MEAN CORPUSCULAR HGB CONC 33.1 g/dl (32.0-36.5); MEAN CORPUSCULAR VOLUME 100.1 fl (80.0-96.0); RED CELL DISTRIBUTION WIDTH 13.9 % (11.5-14.5); WHITE BLOOD COUNT 5.3 K/mm3 (4.0-10.0)
[2016-12-19 06:54] LABS: INR 1.34
[2016-12-19 07:02] LABS: ALBUMIN 2.4 GM/DL (3.2-5.2); ALBUMIN/GLOBULIN RATIO 0.71 (1.00-1.93); ALKALINE PHOSPHATASE 115 U/L (45-117); ALT/SGPT 16 U/L (12-78); ANION GAP 11 MEQ/L (8-16); AST/SGOT 20 U/L (15-37); BILIRUBIN,TOTAL 0.7 MG/DL (0.2-1.0); BLOOD UREA NITROGEN 21 MG/DL (7-18); CALCIUM LEVEL 8.1 MG/DL (8.8-10.2); CARBON DIOXIDE LEVEL 22 MEQ/L (21-32); CHLORIDE LEVEL 111 MEQ/L (98-107); CREATININE FOR GFR 0.89 MG/DL (0.55-1.02); GLOMERULAR FILTRATION RATE > 60.0 (>32); GLUCOSE, FASTING 92 MG/DL (83-110); POTASSIUM SERUM 4.2 MEQ/L (3.5-5.1); SODIUM LEVEL 144 MEQ/L (136-145); TOTAL PROTEIN 5.8 GM/DL (6.4-8.2)
[2016-12-19] MEDS: LEVOTHYROXINE 100 MCG (0.1MG) VIAL IV SCH (08:13)
[2016-12-19] MEDS: SUCRALFATE 1 GM TAB PO SCH ×4 (08:13→20:00)
[2016-12-19] MEDS: OMEPRAZOLE 20 MG CAP PO SCH (08:14)
--- NOTE | 2016-12-19 10:18 | REP ---
Clinical: Nasogastric tube placement. Comparison: 12/18/2016. Findings: Single supine view of the abdomen and pelvis demonstrates nasogastric tube extending to the left upper quadrant in satisfactory position. The bowel gas pattern is nonspecific and appears improved compared to prior examination. Vascular calcifications are unchanged. Degenerative changes to the visualized thoracolumbar spine and hips again noted. The patient is status post cholecystectomy. Impression: Nasogastric tube in satisfactory position. Nonspecific bowel gas pattern appears improved compared to prior examination. Signed by Roney Luz MD 12/19/2016 10:08 A
[2016-12-19 14:00] VITALS: BP 172/85
[2016-12-19 14:06] VITALS: BP 165/82
[2016-12-19 15:42] VITALS: BP 170/75
[2016-12-19] MEDS ORDERED: ROCURONIUM BROMIDE 50 MG/5 ML VIAL As Ordered ONE (15:47)
[2016-12-19] MEDS ORDERED: PROPOFOL 200 MG/20 ML VIAL As Ordered ONE (15:47)
[2016-12-19] MEDS ORDERED: fentaNYL 250 MCG/5 ML INJECTION (J3010) As Ordered ONE (15:47)
[2016-12-19] MEDS ORDERED: MIDAZOLAM INJ 2 MG/2 ML VIAL (J2250) As Ordered ONE (15:47)
[2016-12-19] MEDS ORDERED: LIDOCAINE 2% INJ 100 MG/5 ML SDV (FOR ANES.) As Ordered ONE (15:47)
[2016-12-19] MEDS ORDERED: ONDANSETRON 4MG/2ML VIAL (J2405) As Ordered ONE (16:06)
[2016-12-19] MEDS ORDERED: BUPIVACAINE/EPIN 0.25% 30 ML VIAL As Ordered ONE (16:09)
[2016-12-19] MEDS ORDERED: SUCCINYLCHOLINE 100 MG/5 ML SYRINGE (J0330) As Ordered ONE (16:38)
[2016-12-19] MEDS ORDERED: ceFAZolin 2 GM/D5W 50 ML IV BAG (J0690) As Ordered ONE (16:46)
[2016-12-19] MEDS ORDERED: BUPIVACAINE/EPIN 0.25% 30 ML VIAL XX ONE (17:14)
[2016-12-19] MEDS ORDERED: ceFAZolin 2 GM/D5W 50 ML IV BAG (J0690) IV ONE (17:15)
[2016-12-19] MEDS ORDERED: SUGAMMADEX SODIUM 500 MG/5 ML VIAL (BRIDION) As Ordered ONE (17:33)
[2016-12-19] MEDS ORDERED: ONDANSETRON 4MG/2ML VIAL (J2405) IV PRN (18:15)
[2016-12-19] MEDS ORDERED: fentaNYL 100 MCG/2 ML INJECTION (J3010) IV PRN (18:15)
[2016-12-19] MEDS ORDERED: LR 1,000 ML IV SCH (18:15)
[2016-12-19 20:00] VITALS: BP 150/70
--- NOTE | 2016-12-19 21:21 | RO ---
DATE OF PROCEDURE: 12/19/2016 PREOPERATIVE DIAGNOSIS: Small bowel obstruction. POSTOPERATIVE DIAGNOSIS: Small bowel obstruction secondary to internal hernia and adhesions. OPERATIVE PROCEDURE: Diagnostic laparoscopy with lysis of adhesions and release of internal hernia. SURGEON: Stephane Loya DO MANAGER ANDROID: Dr. Dolan ANESTHESIA: General. COMPLICATIONS: None. INDICATIONS FOR PROCEDURE: The patient is an 86-year-old female presented last with signs of small bowel obstruction. Over the weekend her obstruction relieved itself with NG tube decompression. However, it came back again this Friday. Therefore recommendation was to proceed with diagnostic laparoscopy with possible lysis of adhesions. Risks and benefits of the procedure not limited but including bleeding, infection, hernia formation, damage to surrounding structures, need for further surgery were discussed in detail with the patient and informed consent was obtained and the procedure was planned. OPERATIVE PROCEDURE: The patient brought back to operating room one after sufficient sedation. The abdomen was sterilely prepped and draped and a Elias catheter was placed. Next, a time-out was done, confirming proper patient and proper procedure. Following that, a 5 mm incision made in the left lower quadrant. Veress needle was inserted and the abdomen was insufflated to 50 mmHg. Next, the Veress needle was removed, 5 mm OptiVu port was used to gain access to the abdomen. Once the abdomen was entered, another 5 mm port was placed infraumbilically in the midline and another one suprapubically in the midline. Next, the cecum was examined. Small bowel was then run from the terminal ileum proximally. There was a loop of small intestine that was stuck down into the pelvis. Bed was then placed in reverse Trendelenburg. The small bowel was run down into the pelvis. There was an adhesion to the left lateral pelvic wall with another loop of small intestine stuck underneath it. Next, the Enseal was used to take down some adhesions. The small bowel was then carefully mobilized out of the pelvis, thus releasing adhesion. There was decompressed bowel distal to this and some distended bowel proximal to this point. After this was completed, the small bowel was run the rest of the way back to ligament Treitz, thus confirming that there is no other signs of adhesions or obstruction. There were no palpable masses inside of the bowel lumen at the transition point. Once this was completed, the omentum was placed back over top. The abdomen was decompressed. Port sites were removed. Skin incision closed with #4-0 Vicryl subcuticular sutures. The abdomen was cleaned and dried. Steri-Strips, 4x4 and tape were applied thus ending procedure.
[2016-12-19 22:00] VITALS: BP 153/74
[2016-12-20] VITALS: BP 140/72
[2016-12-20] MEDS: HEPARIN SOD (PORCINE) 5000 UNITS/ML VIAL SQ SCH ×2 (00:27→12:03)
[2016-12-20 06:00] VITALS: BP 130/59
[2016-12-20] MEDS: LEVOTHYROXINE 100 MCG (0.1MG) VIAL IV SCH (08:06)
[2016-12-20] MEDS: OMEPRAZOLE 20 MG CAP PO SCH (08:07)
[2016-12-20] MEDS: SUCRALFATE 1 GM TAB PO SCH ×4 (08:07→20:50)
--- NOTE | 2016-12-20 09:14 | IPNPDOC ---
Subjective Date Seen The patient was seen on 12/20/16. Subjective Chief Complaint/HPI Pt feeling well this morning. She denies pain, she is eating. She has no new concerns. General: Denies: Fatigue Constitutional: Denies: Fever ENT: Denies: Head Aches Pulmonary: Denies: Cough, Dyspnea Cardiovascular: Denies: Chest Pain, Palpitations Gastrointestinal: Denies: Nausea, Vomiting Neurological: Reports: Weakness Psych: Reports: Mood Normal Objective Physical Examination General Exam: Positive: No Acute Distress ENT Exam: Positive: Mucous membr. moist/pink Neck Exam: Positive: Supple Chest Exam: Positive: Clear to auscultation Heart Exam: Positive: Rate Normal Abdomen Exam: Positive: BS Hypoactive, Other, Soft Extremity Exam: Negative: Edema Psych Exam: Positive: Mental status NL Assessment /Plan Problems (1) Small bowel obstruction Status: Acute Problem Text: 12/20 - pt went to the OR yesterday, lysis of adhesions, release of internal hernia. She is feeling well this morning, tolerating regular diet. Pt is DNR, but HCP ok with surg if needed. Cont to take some clear, but also getting more distended. KUB shows persistently distended bowel consistent with SOB. No nausea or vomiting, but Shalini indicating pt will likely need YESSI if not improved on KUB. Will plan for NPO s MN for possible YESSI. -Dr Loya following -NPO s MN -NG per Shalini to decompress prior to surg; will having nursing insert after pt is NPO (2) Paroxysmal atrial fibrillation Status: Chronic Response to Treatment: Stable Problem Text: 12/20 - resume Coumadin at home dose today. INR 1.2. After reversal for possible surg. Chronically VKA for anticoag/ nothing for rate control. (Home dose 6mg M/W and 3 mg ROW). Pt to go for possible YESSI tomorrow. - hold coumadin today (3) Diastolic CHF Status: Chronic Response to Treatment: Stable Problem Text: On Lasix 40 mg bid and spironolactone 50 mg bid at home. Outpt Lasix and spironolactone held. Sodium improved off of IV fluids. (4) CAD (coronary artery disease) Status: Chronic Response to Treatment: Stable Problem Text: No active symptoms (5) Hypothyroid Status: Chronic Response to Treatment: Stable Problem Text: TSH 3.8 on levothyroxine (6) CKD (chronic kidney disease) stage 3, GFR 30-59 ml/min Status: Chronic Response to Treatment: Stable Problem Text: 12/16 - Creat 1.16. Na 154. K 3.5. 12/15/16: Cr. 1.18. Na+ 154. K+ 4.4 12/14/2016: Cr. 1.2 stable cr/lytes baseline cr 1.5 Plan/VTE VTE Prophylaxis Ordered?: Yes Plan Attending note: I saw and evaluated the patient, and agree with the plan of care as discussed and documented by Yumiko Cai. Patient is taking good intake, and is on a normal diet today. She is less distended, and is having no pain or nausea. Hopefully, she will be ready to go tomorrow, depending on recommendations from Dr. Kilgore. Katie Sousa MD VS, I&O, 24H, Fishbone Vital Signs/I&O Vital Signs Date Time Temp Pulse Resp B/P Pulse Ox O2 Delivery O2 Flow Rate FiO2 12/20/16 06:00 98.1 79 16 130/59 96 Nasal Cannula 2.0 I&O- Last 24 Hours up to 6 AM 12/20/16 06:00 Intake Total 2044 ml Output Total 360 ml Balance 1684 ml YUMIKO CAI PA-C Dec 20, 2016 09:14 KATIE SOUSA MD Dec 20, 2016 16:31
[2016-12-20] MEDS: NORCO, ANEXSIA 5/325MG TABLET (HYDROcodone/ACETAMINOPHEN) PO PRN ×2 (12:03→20:51)
[2016-12-20 14:00] VITALS: BP 126/64
[2016-12-20] MEDS: LR 1,000 ML IV SCH (14:32)
[2016-12-20] MEDS: WARFARIN SOD 3 MG TAB PO SCH (17:31)
[2016-12-20 22:00] VITALS: BP 138/65
[2016-12-21] MEDS: HEPARIN SOD (PORCINE) 5000 UNITS/ML VIAL SQ SCH ×3 (00:27→23:36)
[2016-12-21] MEDS: LEVOTHYROXINE 0.088 MG TAB (88 MCG) PO SCH (05:55)
[2016-12-21 06:00] VITALS: BP 159/87
[2016-12-21 06:39] LABS: MEAN CORPUSCULAR HGB CONC 32.8 g/dl (32.0-36.5); MEAN CORPUSCULAR VOLUME 100.5 fl (80.0-96.0); RED CELL DISTRIBUTION WIDTH 13.8 % (11.5-14.5); WHITE BLOOD COUNT 5.8 K/mm3 (4.0-10.0)
[2016-12-21 06:47] LABS: INR 1.31
[2016-12-21] MEDS: SUCRALFATE 1 GM TAB PO SCH ×4 (07:39→21:29)
[2016-12-21] MEDS: OMEPRAZOLE 20 MG CAP PO SCH (07:40)
--- NOTE | 2016-12-21 10:40 | IPNPDOC ---
Subjective Date Seen The patient was seen on 12/21/16. Subjective Chief Complaint/HPI Pt without new concerns today. She denies pain. She has been seen by PT who cleared her for home. General: Denies: Fatigue Constitutional: Denies: Chills, Fever Pulmonary: Denies: Cough, Dyspnea Cardiovascular: Denies: Chest Pain, Palpitations Gastrointestinal: Denies: Diarrhea, Nausea, Vomiting Psych: Reports: Mood Normal Objective Physical Examination General Exam: Positive: Alert, No Acute Distress ENT Exam: Positive: Mucous membr. moist/pink Neck Exam: Positive: Supple Chest Exam: Positive: Clear to auscultation Heart Exam: Positive: Rate Normal Abdomen Exam: Positive: Normal bowel sounds, Other (slightly distended), Soft Extremity Exam: Negative: Edema Psych Exam: Positive: Mental status NL Assessment /Plan Assessment Family Medicine Attending Note: I saw and examined Ms. Schmidt, discussed with VLAD [place]. Agree with their note as documented. Patient was discharged today from our perspective. After our discharge, surgery expressed concern that her repeat weight today ( which was not obtained until after our evaluation) seemed to indicate that she was up 8 kg in the last 10-12 days. I am not sure that this is accurate information as she has not been weighed for most of the days in between. Clinically she does not show signs of significant fluid overload. Nonetheless, increased diuresis was prescribed and we will monitor. I believe that regardless she may be discharged home tomorrow. We may need to adjust her diuretics based on the response to in-hospital diuresis ordered today. (pipe fitter fire sprinkler systems) Problems (1) Small bowel obstruction Status: Acute Problem Text: 12/21 - Mgmt per GS 12/20 - pt went to the OR yesterday, lysis of adhesions, release of internal hernia. She is feeling well this morning, tolerating regular diet. Pt is DNR, but HCP ok with surg if needed. Cont to take some clear, but also getting more distended. KUB shows persistently distended bowel consistent with SOB. No nausea or vomiting, but Shalini indicating pt will likely need YESSI if not improved on KUB. Will plan for NPO s MN for possible YESSI. -Dr Loya following -NPO s MN -NG per Shalini to decompress prior to surg; will having nursing insert after pt is NPO (2) Paroxysmal atrial fibrillation Status: Chronic Response to Treatment: Stable Problem Text: 12/21 - Back on HD coumadin, can be d/c home with Coumadin and outpt f/u, does NOT need to be bridged. 12/20 - resume Coumadin at home dose today. INR 1.2. After reversal for possible surg. Chronically VKA for anticoag/ nothing for rate control. (Home dose 6mg M/W and 3 mg ROW). Pt to go for possible YESSI tomorrow. - hold coumadin today (3) Diastolic CHF Status: Chronic Response to Treatment: Stable Problem Text: 12/21 - IVF have been d/c'd today, tolerating regular diet, Would restart Lasix and Jakob at d/c. 12/20 - On Lasix 40 mg bid and spironolactone 50 mg bid at home. Outpt Lasix and spironolactone held. Sodium improved off of IV fluids. (4) CAD (coronary artery disease) Status: Chronic Response to Treatment: Stable Problem Text: No active symptoms (5) Hypothyroid Status: Chronic Response to Treatment: Stable Problem Text: TSH 3.8 on levothyroxine (6) CKD (chronic kidney disease) stage 3, GFR 30-59 ml/min Status: Chronic Response to Treatment: Stable Problem Text: 12/16 - Creat 1.16. Na 154. K 3.5. 12/15/16: Cr. 1.18. Na+ 154. K+ 4.4 12/14/2016: Cr. 1.2 stable cr/lytes baseline cr 1.5 Plan/VTE VTE Prophylaxis Ordered?: Yes VS, I&O, 24H, Fishbone Vital Signs/I&O Vital Signs Date Time Temp Pulse Resp B/P Pulse Ox O2 Delivery O2 Flow Rate FiO2 12/21/16 06:00 97.4 65 18 159/87 94 Room Air 12/20/16 06:00 2.0 I&O- Last 24 Hours up to 6 AM 12/21/16 06:00 Intake Total 1792 ml Output Total 200 ml Balance 1592 ml Laboratory Data 24H LABS Laboratory Tests 2 12/21/16 06:05: Prothromb Time International Ratio 1.31, Prothrombin Time 16.4H CBC/BMP Laboratory Tests 12/21/16 06:05 Red Blood Count 4.08, Mean Corpuscular Volume 100.5 H, Mean Corpuscular Hemoglobin 33.0, Mean Corpuscular Hemoglobin Concent 32.8, Red Cell Distribution Width 13.8 YUMIKO CAI PA-C Dec 21, 2016 10:40 Matthias Dacosta MD Dec 21, 2016 20:09
[2016-12-21] MEDS: POTASSIUM CHLORIDE 10 MEQ SR TABLET PO SCH (12:09)
[2016-12-21] MEDS: FUROSEMIDE 40 MG TAB PO SCH ×2 (12:09→16:43)
[2016-12-21 14:00] VITALS: BP 164/66
[2016-12-21] MEDS: NORCO, ANEXSIA 5/325MG TABLET (HYDROcodone/ACETAMINOPHEN) PO PRN (16:42)
[2016-12-21] MEDS: WARFARIN SOD 3 MG TAB PO SCH (16:43)
[2016-12-21 22:00] VITALS: BP 167/81
[2016-12-22] MEDS: LEVOTHYROXINE 0.088 MG TAB (88 MCG) PO SCH (05:38)
[2016-12-22 06:00] VITALS: BP 165/84
[2016-12-22 06:36] LABS: INR 1.23
[2016-12-22 06:48] LABS: CALCIUM LEVEL 8.4 MG/DL (8.8-10.2); CREATININE FOR GFR 1.01 MG/DL (0.55-1.02); GLOMERULAR FILTRATION RATE 55.1 (>32); POTASSIUM SERUM 3.9 MEQ/L (3.5-5.1)
[2016-12-22] MEDS: OMEPRAZOLE 20 MG CAP PO SCH (08:01)
[2016-12-22] MEDS: SUCRALFATE 1 GM TAB PO SCH (08:02)
[2016-12-22] MEDS: FUROSEMIDE 40 MG TAB PO SCH (08:02)
[2016-12-22] MEDS: POTASSIUM CHLORIDE 10 MEQ SR TABLET PO SCH (08:02)
[2016-12-23] MEDS ORDERED: WARFARIN SOD 3 MG TAB PO SCH (17:00)
--- NOTE | 2017-01-02 14:23 | DSES ---
DATE OF ADMISSION: 12/12/2016 DATE OF DISCHARGE: 12/23/2016 ADMISSION DIAGNOSIS: Small bowel obstruction. DISCHARGE DIAGNOSIS: Small bowel obstruction. HOSPITAL COURSE: The patient is an 86-year-old female who presented on 12/12/2016 with a small bowel obstruction. She had an NG tube placed and was started on IV fluids. Over the weekend, she started to pass gas. Abdomen was soft, nontender. NG output was almost nothing. NG tube was removed. She tolerated a small diet the following Friday. Her diet was advanced. By Friday, when she was getting ready be discharged, her abdomen was distended again. NG tube was then replaced. After another 48 hours of no improvement, recommendation was to proceed with laparoscopic possible open diagnostic laparoscopy with evaluation of internal hernia. On 12/19/2016, she was taken to the operating room (OR) with laparoscopic lysis of adhesions and release of internal hernia. Postoperatively, she did well. She tolerated a diet. NG tube and Elias were removed immediately after surgery. Abdomen was soft. She had a bowel movement. She was restarted on her Coumadin. She was eventually discharged home on 12/22/2016 to follow up with me in 2 weeks.
== END 2016-12-22 12:42 | disposition home or self-care (01) | DRG 335 ==
LOC: M ED 20:00 → M ED INP 12-12 02:21 → M MS5PR 12-12 12:15
PROVIDERS: ADMIT Surgery; ATTEND Surgery
PROC: 0DQS4ZZ (ICD-10-PCS; 2016-12-19)
PROC: 0DN84ZZ Release Small Intestine, Percutaneous Endoscopic Approach (ICD-10-PCS; principal; 2016-12-19 15:30)
DX: K46.0 Unspecified abdominal hernia with obstruction, without gangrene (principal); I50.33 Acute on chronic diastolic (congestive) heart failure; I48.0 Paroxysmal atrial fibrillation; I12.9 Hypertensive chronic kidney disease with stage 1 through stage 4 chronic kidney disease, or unspecified chronic kidney disease; E78.00 Pure hypercholesterolemia, unspecified; Z86.73 Personal history of transient ischemic attack (TIA), and cerebral infarction without residual deficits; N18.3 Chronic kidney disease, stage 3 (moderate); I25.10 Atherosclerotic heart disease of native coronary artery without angina pectoris; E03.9 Hypothyroidism, unspecified

== ENCOUNTER 2016-12-23 10:05 | Inpatient (IN) | payer MEDICARE ==
[~2016-12-23] VITALS: Ht 170.2 cm; Wt 55.0 kg
[~2016-12-23 10:05] MED LIST changes: +CALC1TAB30 PO; +FURO40TA2 PO; +MAGN400T2 PO; +OMEP40CA2 PO; +POTA10CA PO; +SPIR50TA2 PO; +SUCR1TAB56 PO; +SYNT75TA PO; +VITA10002 PO; +VITA50003 PO; +WARF-58 PO; +WARF-60 PO
[2016-12-23 10:30] LABS: BASO % 0.4 % (0.0-1.0); EOS # 0.1 K/mm3 (0.0-0.50); EOS % 1.4 % (0.0-3.0); LARGE UNSTAINED CELL # 0.1 K/mm3 (0.0-0.4); LARGE UNSTAINED CELL % 2.2 % (0.0-4.0); LYMPH # 1.7 K/mm3 (1.5-4.5); LYMPH % 29.3 % (24.0-44.0); MEAN CORPUSCULAR HEMOGLOBIN 32.1 pg (27.0-33.0); MEAN CORPUSCULAR HGB CONC 32.3 g/dl (32.0-36.5); MEAN CORPUSCULAR VOLUME 99.2 fl (80.0-96.0); MONO # 0.3 K/mm3 (0.0-0.8); MONO % 5.5 % (0.0-5.0); NEUTROPHILS # 3.6 K/mm3 (1.8-7.7); NEUTROPHILS % 61.3 % (36.0-66.0); PLATELET COUNT, AUTOMATED 259 k/mm3 (150-450); WHITE BLOOD COUNT 5.9 K/mm3 (4.0-10.0)
[2016-12-23 10:57] LABS: CALCIUM LEVEL 8.4 MG/DL (8.8-10.2); CREATININE FOR GFR 1.08 MG/DL (0.55-1.02); POTASSIUM SERUM 4.1 MEQ/L (3.5-5.1)
--- NOTE | 2016-12-23 11:16 | REP ---
TWO-VIEW CHEST: Two views of the chest are performed. COMPARISON: 02/04/2014 There is significant cardiomegaly. There is vascular congestion. There is bibasilar alveolar edema. Moderate bilateral effusions are seen. There is a left signal lead pacemaker. There are degenerative changes of the spine. There are compression deformities of the thoracic vertebral bodies, which are stable. IMPRESSION: Findings compatible with congestive heart failure and pulmonary edema, with cardiomegaly and bilateral effusions. Signed by Stephane Au MD 12/23/2016 04:57 P
--- NOTE | 2016-12-23 12:14 | REP ---
Bilateral lower extremity Duplex Doppler venous ultrasound: Real time compression and duplex Doppler interrogation of the bilateral lower extremity deep venous system is performed. Bilaterally, the common femoral, superficial femoral and popliteal veins are fully compressible with transducer pressure and demonstrate normal spontaneous and phasic flow, without evidence of deep venous thrombosis. Impression: No evidence of deep venous thrombosis of the bilateral lower extremity femoral popliteal venous system. Popliteal cyst on the right measures 5.5 x 1.6 x 2.6 cm. Signed by Stephane Au MD 12/23/2016 12:05 P
--- NOTE | 2016-12-23 13:43 | HPEPDOC ---
Medical History and Physical Date of Admission 12/23/16 History and Physical ATTENDING: Dr. Moser PCP: Dr Moser CC: SOB/edema HPI: 86yoF with a past medical history significant for CHF, chronic atrial fibrillation was admitted to [facility] from 12/12/16-12/22/16 related to SBO undergoing laparoscopy and lysis of adhesions and release of internal hernia 12/19/[address] Loya. Patient states she was discharged 12/22. Upon discharge home she noted swollen feet. This morning according to her son, after getting dressed she was short of breath. Last evening she slept on her couch. Denies any fevers, chills, headache, CP, SOB, cough, palpitations, abdominal pain, N/V/D or changes in bowel or bladder habits. Upon presentation to the hospital the patient was found to have CHF, thus the hospitalist team was consulted. PMHx: Atrial fibrillation Hyperlipidemia Hypertension History of CVA CHF CKD3 Baseline 1.5 PSHX: Hysterectomy Cataract surgery Pacemaker insertion Cardiac stents Laparoscopy-lysis of adhesions/release of internal hernia SOCHX: Resides in: [place] Marital Status: Kids: 6, 2 Tobacco use: Denies ETOH: Denies Illicit Drugs: Denies Recent travel: Denies FAMHX: Children: 4 Alive, well. 2 , brain cancer/NV. ROS: As noted in HPI, otherwise 11pt ROS of systems reviewed and unremarkable. Bandages are noted over abdominal wounds. She reports no abdominal discomfort. PE: GEN: 86yoF, appears stated age. Well-nourished, well developed. No acute distress. Alert and oriented x 3. Pleasant, interactive. HEENT: Normocephalic, atraumatic. Pupils are equal, round, and reactive to light. Extraocular movements are intact. No nystagmus appreciated. Sclera are nonicteric. Conjunctiva without injection. Nose midline. Nasal turbinates without bogginess. EACs both patent BL. TMs both visualized and salter with good cone of light, no bulging or erythema. No facial asymmetry. Moist mucous membranes. Edentulous. Pharynx pink and moist, no cobblestoning. Neck supple, trachea midline. No lymphadenopathy or thyromegaly appreciated. CHEST: Regular rate and rhythm, +S1, +S2. JVD elevated sitting. LUNGS: Decreased breath sounds at bases bilaterally. Few rales noted bilaterally. No wheezes, or rhonchi. Breathing appears symmetric and easy. No accessory muscle use. ABD: Round, soft, non-tender, non-distended. +Bowel sounds throughout. No rebound or guarding. No costovertebral angle tenderness. EXT: 2mm lower extremity edema appreciated to proximal pretibial area bilaterally. Trace at knees and distal thigh as well as sacral area. SKIN: [place], dry, warm. Capillary refill <2sec. No rashes. NEURO: Alert and oriented x 3. Cranial nerves III-XII are intact. No focal deficits appreciated. CXR: Findings compatible with congestive heart failure and pulmonary edema, with cardiomegaly and bilateral effusions. U/S LEs: No evidence of deep venous thrombosis of the bilateral lower extremity femoral popliteal venous system. Popliteal cyst on the right measures 5.5 x 1.6 x 2.6 cm. A&P: 86yoF with a past medical history significant for CHF, chronic atrial fibrillation was admitted to [facility] from 12/12/16-12/22/16 related to SBO undergoing laparoscopy and lysis of adhesions and release of internal hernia 12/19/[address] Loya. Patient states she was discharged 12/22. Upon discharge home she noted swollen feet. The patient will be admitted to /S for at least [address] Moser's service. Pt is discussed with Dr Sousa. Decompensated CHF. Daily weight, I/O, IV Lasix 80 mg IV every Q8hrs. spironolactone/potassium supplement. Pacemaker/Chronic atrial fibrillation. Check INR now. Coumadin anticoagulation was restarted at discharge, will give 3 mg tonight, recheck INR in AM, dose accordingly . Hypertension. as above. Hypothyroidism. Continue supplement. GERD. Continue PPI/Carafate. SBO/status post laparoscopy with lysis of adhesion/release of internal hernia . Pt states she has no pain. CKD3 Baseline SCr 1.5. Monitor daily labs. DVT prophylaxis. Pt on Coumadin. Vital Signs 163/80 92 20 98.7 95RA Laboratory Data Labs 24H Laboratory Tests 2 12/23/16 10:17: Anion Gap 8, B-Type Natriuretic Peptide 520H, White Blood Count 5.9, Red Blood Count 4.73, Hemoglobin 15.2, Hematocrit 46.9, Mean Corpuscular Volume 99.2H, Mean Corpuscular Hemoglobin 32.1, Mean Corpuscular Hemoglobin Concent 32.3, Red Cell Distribution Width 14.0, Platelet Count 259, Neutrophils (%) (Auto) 61.3, Lymphocytes (%) (Auto) 29.3, Monocytes (%) (Auto) 5.5H, Eosinophils (%) (Auto) 1.4, Basophils (%) (Auto) 0.4, Neutrophils # (Auto) 3.6, Lymphocytes # (Auto) 1.7, Monocytes # (Auto) 0.3, Eosinophils # (Auto) 0.1, Basophils # (Auto) 0.0, Blood Urea Nitrogen 16, Creatinine 1.08H, Sodium Level 142, Potassium Level 4.1 , Chloride Level 105, Carbon Dioxide Level 29, Calcium Level 8.4L, Total Creatine Kinase 49, Creatine Kinase MB 2.0, Creatine Kinase MB Relative Index 4.08H, Glomerular Filtration Rate 51.0, Large Unclassified Cells # 0.1, Large Unclassified Cells % 2.2, Troponin I 0.02 CBC/BMP Laboratory Tests 12/23/16 10:17 Calcium Level 8.4 L, Total Creatine Kinase 49, Red Blood Count 4.73, Mean Corpuscular Volume 99.2 H, Mean Corpuscular Hemoglobin 32.1, Mean Corpuscular Hemoglobin Concent 32.3, Red Cell Distribution Width 14.0, Neutrophils (%) (Auto ) 61.3, Lymphocytes (%) (Auto) 29.3, Monocytes (%) (Auto) 5.5 H, Eosinophils (% ) (Auto) 1.4, Basophils (%) (Auto) 0.4, Neutrophils # (Auto) 3.6, Lymphocytes # (Auto) 1.7, Monocytes # (Auto) 0.3, Eosinophils # (Auto) 0.1, Basophils # (Auto ) 0.0 Microbiology Microbiology 12/23/16 Influenza Virus Type A Antigen - Final, Complete 12/23/16 Influenza Virus Type B Antigen - Final, Complete Home Medications Scheduled Cyanocobalamin (Vitamin B-12) 1,000 Mcg Tab 1,000 MCG PO DAILY Ergocalciferol (Vitamin D) 50,000 Unit Cap 50,000 UNIT PO 1XWK WEDNESDAYS Furosemide (Furosemide) 40 Mg Tab 40 MG PO BID Levothyroxine Sodium (Synthroid) 75 Mcg Tab 75 MCG PO DAILY Magnesium Oxide (Magnesium Oxide) 400 Mg Tab 400 MG PO DAILY Omeprazole (Omeprazole) 40 Mg Cap 40 MG PO DAILY Potassium Chloride (Klor-Con M10) 10 Meq Tabcr 20 MEQ PO BID Spironolactone (Spironolactone) 50 Mg Tab 50 MG PO DAILY Sucralfate (Sucralfate) 1 Gm Tab 1 GM PO ACHS Warfarin Sod (Warfarin Sodium) 6 Mg Tab 6 MG PO 2XW MONDAYS AND WEDNESDAYS Warfarin Sod (Warfarin Sodium) 3 Mg Tab 3 MG PO 5XW FRIDAY, FRIDAY, FRIDAY, FRIDAY, FRIDAY Allergies Coded Allergies: No Known Allergies (Verified Allergy, Unknown, 06/05/08) Brianna Hill Dec 23, 2016 13:43
[2016-12-23] MEDS ORDERED: ONDANSETRON 4MG/2ML VIAL (J2405) IV PRN (13:45)
[2016-12-23] MEDS ORDERED: ACETAMINOPHEN 500 MG TAB PO PRN (13:45)
[2016-12-23] MEDS ORDERED: FUROSEMIDE 40 MG/4 ML VIAL (J1940) As Ordered ONE (13:55)
[2016-12-23 14:15] VITALS: BP 158/72
--- NOTE | 2016-12-23 15:10 | EDDOCDS ---
Nurse's Notes [facility] Name: Alba Browning Age: 86 yrs Sex: Female : 1930 Arrival Date: 12/23/2016 Time: 10:05 Bed 5 Private MD: Diagnosis: Acute systolic (congestive) heart failure Presentation: 12/23 10:07 Presenting complaint: EMS states: initial pox low and highest they got her up to 89%. srm placed on NRB and neb tx just d/c'd from here yesterday after having bowel surgery last . yesterday upon discharge noted to have swollen feet and daughter told staff. upon arrival to home had difficulty breathing but got better. Adult Sepsis Screening: The patient does not have new or worsening altered mentation. Patient's respiratory rate is less than 22. Systolic blood pressure is greater than 100. Patient has a qSOFA score of 0- Negative Sepsis Screen. Suicide/Homicide risk assessment- the patient denies having any suicidal and/or homicidal ideations and does not present with any other emotional, behavioral or mental health complaints. Status: Patient is not a environmental field services technician or dependent. Transition of care: patient was not received from another setting of care. 10:07 Acuity: CHELSIE Level 3 srm 10:07 Method Of Arrival: Ambulance srm 10:14 Care prior to arrival: Glucose check. 136. [facility] Triage Assessment: 10:16 General: Appears in no apparent distress, Behavior is appropriate for age, cooperative. srm Pain: Denies pain. Respiratory: Onset: The symptoms/episode began/occurred gradually, Airway is patent Respiratory effort is even, unlabored, Breath sounds are clear bilaterally. Historical: - Allergies: no known allergies; - Home Meds: 1. vit B 12 1,000 mcg daily 2. vit D2 1.25 mg weekly 3. furosemide 40 mg Oral tab 1 tab 2 times per day 4. levothyroxine 75 mcg Oral tab 1 tab once daily 5. magnesium oxide 400 mg Oral tab daily 6. omeprazole 40 mg Oral cpDR 1 cap once daily 7. potassium chloride 20 mEq Oral TbER 1 tab 2 times per day 8. spironolactone 50 mg Oral tab 1 tab once daily 9. sucralfate 1 gram Oral tab 1 tab 4 times per day 10. warfarin 3 mg tu, thurs, fri, sat, sun Oral tab 11. warfarin 6 mg mon and wed Oral tab 1 tab once daily - PMHx: Atrial Fib; CHF; CVA; Hypercholesterolemia; Hypertension; SMALL BOWEL OBSTRUCTION.; abdominal hernia; - PSHx: Hysterectomy; Cataract Surgery- Bilateral; Pacemaker Insertion; Cardiac stents; lysis of adhesions; - Social history: Smoking status: Patient states was never smoker of tobacco. The flue blower used to assist in communication was the patient's family, Patient is hearing impaired. - Family history: Not pertinent. - : The pt / caregiver states he / she is on anticoagulants: coumadin. Home medication list is obtained from family members, a discharge med list. - Exposure Risk Screening:: None identified. Screenin:15 Screening information is obtained from family members. Fall risk: No risks identified. srm Assistance ADL's: requires no assistance with activities of daily living. Abuse/DV Screen: The patient / caregiver reports he/she is: not in a situation that causes fear, pain or injury. Nutritional screening: No deficits noted. Advance Directives: Currently, there is a health care proxy, daughter luisana arora. There is an active DNR order but there is no copy available at this time. home support is adequate. Assessment: 10:22 Cardiovascular: Capillary refill < 3 seconds in bilateral fingers Heart tones present. srm Cardiovascular: Rhythm is regular. GI: Abdomen is non- distended other dressings x3 to abdomen are clean dry and intact Bowel sounds present X 4 quads. Derm: edema to lower extremities. 10:58 General: Appears in no apparent distress, Behavior is appropriate for age, cooperative. srm Neurological: Level of Consciousness is awake, alert, Oriented to person, place, time, Overnight Stocker are equal bilaterally Speech is normal, Facial symmetry appears normal. Cardiovascular: Rhythm is regular. Respiratory: Airway is patent Respiratory effort is even, unlabored. 12:21 Reassessment: Patient appears in no apparent distress at this time. Respiratory: Airway srm is patent Respiratory effort is even, unlabored. 14:04 General: Appears in no apparent distress, Behavior is appropriate for age, cooperative. srm Respiratory: Airway is patent Respiratory effort is even, unlabored, Breath sounds are clear bilaterally. GI: Abdomen is non- distended Bowel sounds present X 4 quads. Abd is soft and non tender X 4 quads. 15:08 Reassessment: Patient appears in no apparent distress at this time. General: Appears in srm no apparent distress, Behavior is appropriate for age, cooperative. Neurological: No deficits noted. EENT: No deficits noted. Cardiovascular: Rhythm is regular. Respiratory: No deficits noted. Vital Signs: 10:12 BP 163 / 80 (auto/); srm 10:14 Pulse 86 MON; Pulse Ox 94% ; srm 10:18 BP 163 / 80; Pulse 92; Resp 20; Temp 98.7(TE); Pulse Ox 95% on R/A; Weight 58.74 kg rn1 (M); Height 5 ft. 5 in. (165.10 cm); Pain 0/10; 10:22 BP 166 / 79 (auto/); srm 10:22 Pulse 78 MON; Pulse Ox 95% ; srm 10:52 Pulse 72 MON; Pulse Ox 91% ; srm 10:52 BP 147 / 71 (auto/); srm 11:21 Pulse 70 MON; Pulse Ox 94% ; srm 11:22 BP 147 / 67 (auto/); srm 11:52 BP 152 / 71 (auto/); srm 11:52 Pulse 68 MON; Resp 20; Pulse Ox 95% ; srm 12:22 Pulse 66 MON; Pulse Ox 95% ; srm 12:22 BP 157 / 72 (auto/); srm 12:52 Pulse 66 MON; Pulse Ox 96% ; srm 12:52 BP 154 / 74 (auto/); srm 13:22 BP 152 / 73 (auto/); srm 13:22 Pulse 66 MON; Resp 20; Pulse Ox 94% ; srm 13:52 BP 158 / 72 (auto/); srm 13:52 Pulse 68 MON; Temp 98.5(TE); Pulse Ox 96% on R/A; srm 15:05 BP 125 / 59 (auto/); srm 15:05 Pulse 72 MON; Resp 20; Temp 98(TE); Pulse Ox 94% on R/A; srm 10:18 Body Mass Index 21.55 (58.74 kg, 165.10 cm) rn1 Vitals: 10:16 Log In Time N/A - ambulance arrival. [facility] ED Course: 10:06 Patient visited by Mara Green, Brace Maker. deg 10:06 Patient moved to Waiting deg 10:06 Patient moved to 5 srm 10:10 Triage Initiated [facility] 10:15 The patient / caregiver is instructed regarding the plan of care and ED course. srm Accompanied by Family Member, Patient has correct armband on for positive identification. Placed in gown. Bed in low position. Call light in reach. Side rails up X2. surveillance monitor on. Pulse ox on. 10:22 B-Type Natiuretic Peptide Sent. srm 10:22 Basic Metabolic Profile Sent. srm 10:22 CBC with Diff Sent. srm 10:22 Cardiac Injury Profile Sent. srm 10:22 Troponin Sent. srm 10:22 Inserted saline lock: 20 gauge in right antecubital area and blood collected. by H ilda Ybarra RN. 10:24 Patient visited by Dyana Musa RN. srm 10:39 EKG done. (by ED staff). Reviewed by Wilver Harden MD. rn1 10:41 Wilver Harden MD is Attending Physician. br1 10:59 Patient visited by Dyana Musa RN. srm 11:10 Patient visited by Wilver Harden MD. br1 11:25 -Influenza A&B Rapid Antigen - Nose Sent. srm 11:35 Chest, 2 View (pa\E\lat) Returned. EDMS 11:48 [facility] Payment Agreement was scanned into [employer] and attached to record. mm15 12:21 Patient visited by Dyana Musa RN. srm 12:40 Ultrasound Bilateral LE R/O DVT Returned. EDMS 13:36 Patient visited by Wilver Harden MD. br1 13:41 Maite Sousa is Hospitalizing Provider. br1 14:05 Patient visited by Dyana Musa RN. srm 14:20 No procedures done that require assistance. srm 14:23 Patient visited by Dyana Musa RN. srm 14:23 Diet: Patient given regular meal. srm Administered Medications: 14:03 Drug: Furosemide 40 mg [furosemide 10 mg/mL injection solution (4 mL)] Route: IVP; srm Site: right antecubital; Order Results: Lab Order: B-Type Natiuretic Peptide; SPEC'M 12/23/16 10:17 Test: BRAIN NATRIURETIC PEPTIDE; Value: 520; Range: <100; Abnormal: Above high normal; Units: PG/ML; Status: F Lab Order: Basic Metabolic Profile; SPEC'M 12/23/16 10:17 Test: GLUCOSE, FASTING; Value: 140; Range: 83-110; Abnormal: Above high normal; Units: MG/DL; Status: F Test: BLOOD UREA NITROGEN; Value: 16; Range: 7-18; Units: MG/DL; Status: F Test: CREATININE FOR GFR; Value: 1.08; Range: 0.55-1.02; Abnormal: Above high normal; Units: MG/DL; Status: F Test: GLOMERULAR FILTRATION RATE; Value: 51.0; Range: >32; Status: F Test: SODIUM LEVEL; Value: 142; Range: 136-145; Units: MEQ/L; Status: F Test: POTASSIUM SERUM; Value: 4.1; Range: 3.5-5.1; Units: MEQ/L; Status: F Test: CHLORIDE LEVEL; Value: 105; Range: 98-107; Units: MEQ/L; Status: F Test: CARBON DIOXIDE LEVEL; Value: 29; Range: 21-32; Units: MEQ/L; Status: F Test: ANION GAP; Value: 8; Range: 8-16; Units: MEQ/L; Status: F Test: CALCIUM LEVEL; Value: 8.4; Range: 8.8-10.2; Abnormal: Below low normal; Units: MG/DL; Status: F Test Note: ; Units are mL/min/1.73 m2 Chronic Kidney Disease Staging per NKF: Stage I & II GFR >=60 Normal to Mildly Decreased Stage III GFR 30-59 Moderately Decreased Stage IV GFR 15-29 Severely Decreased Stage V GFR <15 Very Little GFR Left ESRD GFR <15 on IT PROGRAM AUDITOR Lab Order: CBC with Diff; SPEC'M 12/23/16 10:17 Test: WHITE BLOOD COUNT; Value: 5.9; Range: 4.0-10.0; Units: K/mm3; Status: F Test: RED BLOOD COUNT; Value: 4.73; Range: 4.00-5.40; Units: M/mm3; Status: F Test: HEMOGLOBIN; Value: 15.2; Range: 12.0-16.0; Units: g/dl; Status: F Test: HEMATOCRIT; Value: 46.9; Range: 36.0-47.0; Units: %; Status: F Test: MEAN CORPUSCULAR VOLUME; Value: 99.2; Range: 80.0-96.0; Abnormal: Above high normal; Units: fl; Status: F Test: MEAN CORPUSCULAR HEMOGLOBIN; Value: 32.1; Range: 27.0-33.0; Units: pg; Status: F Test: MEAN CORPUSCULAR HGB CONC; Value: 32.3; Range: 32.0-36.5; Units: g/dl; Status: F Test: RED CELL DISTRIBUTION WIDTH; Value: 14.0; Range: 11.5-14.5; Units: %; Status: F Test: PLATELET COUNT, AUTOMATED; Value: 259; Range: 150-450; Units: k/mm3; Status: F Test: NEUTROPHILS %; Value: 61.3; Range: 36.0-66.0; Units: %; Status: F Test: LYMPH %; Value: 29.3; Range: 24.0-44.0; Units: %; Status: F Test: MONO %; Value: 5.5; Range: 0.0-5.0; Abnormal: Above high normal; Units: %; Status: F Test: EOS %; Value: 1.4; Range: 0.0-3.0; Units: %; Status: F Test: BASO %; Value: 0.4; Range: 0.0-1.0; Units: %; Status: F Test: LARGE UNSTAINED CELL %; Value: 2.2; Range: 0.0-4.0; Units: %; Status: F Test: NEUTROPHILS #; Value: 3.6; Range: 1.8-7.7; Units: K/mm3; Status: F Test: LYMPH #; Value: 1.7; Range: 1.5-4.5; Units: K/mm3; Status: F Test: MONO #; Value: 0.3; Range: 0.0-0.8; Units: K/mm3; Status: F Test: EOS #; Value: 0.1; Range: 0.0-0.50; Units: K/mm3; Status: F Test: BASO #; Value: 0.0; Range: 0.0-0.2; Units: K/mm3; Status: F Test: LARGE UNSTAINED CELL #; Value: 0.1; Range: 0.0-0.4; Units: K/mm3; Status: F Lab Order: Cardiac Injury Profile; SPEC'M 12/23/16 10:17 Test: CPK CREATINE PHOSPHOKINASE; Value: 49; Range: 26-192; Units: U/L; Status: F Test: CK-MB VALUE MASS; Value: 2.0; Range: 0.0-3.6; Units: NG/ML; Status: F Test: MB/CK RELATIVE INDEX; Value: 4.08; Range: < OR =4; Abnormal: Above high normal; Status: F Test Note: ; DIAGNOSIS CRITERIA MMB ng/ml Relative Index (RI) NON-AMI < or = 5 N/A AU ZONE > 5 < or = 4 AMI > 5 > 4 Lab Order: Troponin; SPEC'M 12/23/16 10:17 Test: TROPONIN I; Value: 0.02; Range: < 0.10; Units: NG/ML; Status: F Test Note: ; Troponin I Reference Interval for [employer] LOCI: 99th Percentile= 0.00-0.045 ng/ml Risk Stratification: <= 0.10 ng/ml Decreased Risk for Adverse Clinical Events. 0.10-1.50 ng/ml Increased Risk for Adverse Clinical Events. Evaluation of additional criterion and/or repeat testing in 2-6 hours is suggested to rule out myocardial damage. >= 1.50 ng/ml Indicative of Myocardial Injury. Lab Order: -Influenza A&B Rapid Antigen - Nose; SPEC'M 12/23/16 11:24 Test: INFLUENZA A RAPID SCR by ICA; Value: INFLUENZA A RESULTS NEGATIVE; Status: F Test: INFLUENZA A RAPID SCR by ICA; Value: Comments:; Status: F Test: INFLUENZA B RAPID SCR by ICA; Value: INFLUENZA B RESULTS NEGATIVE; Status: F Test Note: ; The Influenza test is a direct rapid immunoassay for the qualitative detection of Influenza viral antigen. Cell culture (Viral Culture) testing should be considered to confirm NEGATIVE results and to assist in detecting other viruses that can provide similar clinical symptoms. Please contact the lab within 24 hours ([phone]) if confirmatory testing is desired. Radiology Order: Chest, 2 View (pa\E\lat) Test: Chest, 2 View (pa\E\lat) REASON FOR EXAMINATION: Shortness of Breath; TWO-VIEW CHEST:; ; Two views of the chest are performed.; ; COMPARISON: 02/04/2014; ; There is significant cardiomegaly. There is vascular congestion. There is; bibasilar alveolar edema. Moderate bilateral effusions are seen. There is a left; signal lead pacemaker. There are degenerative changes of the spine. There are; compression deformities of the thoracic vertebral bodies, which are stable.; ; IMPRESSION:; Findings compatible with congestive heart failure and pulmonary edema, with; cardiomegaly and bilateral effusions.; ; Unreviewed; Radiology Order: Ultrasound Bilateral LE R/O DVT Test: Ultrasound Bilateral LE R/O DVT REASON FOR EXAMINATION: Deformity/Swelling; Bilateral lower extremity Duplex Doppler venous ultrasound:; ; Real time compression and duplex Doppler interrogation of the bilateral lower; extremity deep venous system is performed. Bilaterally, the common femoral,; superficial femoral and popliteal veins are fully compressible with transducer; pressure and demonstrate normal spontaneous and phasic flow, without evidence of; deep venous thrombosis.; ; Impression:; ; No evidence of deep venous thrombosis of the bilateral lower extremity femoral; popliteal venous system. Popliteal cyst on the right measures 5.5 x 1.6 x 2.6; cm.; ; ; Signed by; Stephane Au MD 12/23/2016 12:05 P; Outcome: 13:41 Decision to Hospitalize by Provider. br1 14:23 Discharge Assessment: Patient awake, alert and oriented x 3. No cognitive and/or srm functional deficits noted. Patient verbalized understanding of disposition instructions. patient administered narcotics - no. The following High Risk Discharge criteria are identified: None. Condition: stable. Property :Personal belongings accompany Pt. 14:23 No special radiology studies were completed. srm 15:05 Admitted to Med/Surg accompanied by tech, via stretcher, with chart. srm 15:09 Patient left the ED. srm Signatures: Dispatcher [employer] EDMS Mara Green, Brace Maker Unit deg Dyana Musa, RN RN srm Wilver Harden MD MD br1 Gurdeep Trevino mm15 Jesus Pozo rn1 MTDD
--- NOTE | 2016-12-23 15:10 | EDDOCDS ---
Physician Documentation [facility] Name: Alba Browning Age: 86 yrs Sex: Female : 1930 Arrival Date: 12/23/2016 Time: 10:05 Bed 5 Private MD: Disposition: 12/23/16 13:41 Hospitalization ordered by Maite Sousa for Inpatient Admission. Preliminary diagnosis is Acute systolic (congestive) heart failure. - Bed requested for 4 [place]. - Status is Inpatient Admission. srm - Condition is Stable. - Problem is new. - Symptoms are unchanged. Historical: - Allergies: no known allergies; - Home Meds: 1. vit B 12 1,000 mcg daily 2. vit D2 1.25 mg weekly 3. furosemide 40 mg Oral tab 1 tab 2 times per day 4. levothyroxine 75 mcg Oral tab 1 tab once daily 5. magnesium oxide 400 mg Oral tab daily 6. omeprazole 40 mg Oral cpDR 1 cap once daily 7. potassium chloride 20 mEq Oral TbER 1 tab 2 times per day 8. spironolactone 50 mg Oral tab 1 tab once daily 9. sucralfate 1 gram Oral tab 1 tab 4 times per day 10. warfarin 3 mg tu, , fri, sat, sun Oral tab 11. warfarin 6 mg mon and wed Oral tab 1 tab once daily - PMHx: Atrial Fib; CHF; CVA; Hypercholesterolemia; Hypertension; SMALL BOWEL OBSTRUCTION.; abdominal hernia; - PSHx: Hysterectomy; Cataract Surgery- Bilateral; Pacemaker Insertion; Cardiac stents; lysis of adhesions; - Social history: Smoking status: Patient states was never smoker of tobacco. The fruit inspector used to assist in communication was the patient's family, Patient is hearing impaired. - Family history: Not pertinent. - : The pt / caregiver states he / she is on anticoagulants: coumadin. Home medication list is obtained from family members, a discharge med list. - Exposure Risk Screening:: None identified. Vital Signs: 12/23 10:12 BP 163 / 80 (auto/); srm 10:14 Pulse 86 MON; Pulse Ox 94% ; srm 10:18 BP 163 / 80; Pulse 92; Resp 20; Temp 98.7(TE); Pulse Ox 95% on R/A; Weight 58.74 kg / rn1 129.5 lbs (M); Height 5 ft. 5 in. (165.10 cm); Pain 0/10; 10:22 BP 166 / 79 (auto/); srm 10:22 Pulse 78 MON; Pulse Ox 95% ; srm 10:52 Pulse 72 MON; Pulse Ox 91% ; srm 10:52 BP 147 / 71 (auto/); srm 11:21 Pulse 70 MON; Pulse Ox 94% ; srm 11:22 BP 147 / 67 (auto/); srm 11:52 BP 152 / 71 (auto/); srm 11:52 Pulse 68 MON; Resp 20; Pulse Ox 95% ; srm 12:22 Pulse 66 MON; Pulse Ox 95% ; srm 12:22 BP 157 / 72 (auto/); srm 12:52 Pulse 66 MON; Pulse Ox 96% ; srm 12:52 BP 154 / 74 (auto/); srm 13:22 BP 152 / 73 (auto/); srm 13:22 Pulse 66 MON; Resp 20; Pulse Ox 94% ; srm 13:52 BP 158 / 72 (auto/); srm 13:52 Pulse 68 MON; Temp 98.5(TE); Pulse Ox 96% on R/A; srm 15:05 BP 125 / 59 (auto/); srm 15:05 Pulse 72 MON; Resp 20; Temp 98(TE); Pulse Ox 94% on R/A; srm 10:18 Body Mass Index 21.55 (58.74 kg, 165.10 cm) rn1 MDM: 10:13 Music Box Mechanic/Pulse Ox/q 30 min VS ordered. br1 10:13 IV Saline Lock ordered. br1 10:13 Rhythm Strip to chart ordered. br1 10:13 Undress patient appropriately for examination ordered. br1 10:13 B-Type Natiuretic Peptide Ordered. EDMS 10:13 Basic Metabolic Profile Ordered. EDMS 10:13 CBC with Diff Ordered. EDMS 10:13 Cardiac Injury Profile Ordered. EDMS 10:13 Troponin Ordered. EDMS 10:14 ECG WITH READING ER PHYS+CARDIAG ordered. EDMS 10:14 Chest, 2 View (pa\E\lat) Ordered. EDMS 11:12 -Influenza A&B Rapid Antigen - Nose Ordered. EDMS 11:13 Ultrasound Bilateral LE R/O DVT Ordered. EDMS 11:42 Financial registration complete. mm15 11:48 [facility] Payment Agreement was scanned into [employer] and attached to record. mm15 13:21 B-Type Natiuretic Peptide Reviewed. br1 13:21 Basic Metabolic Profile Reviewed. br1 13:21 CBC with Diff Reviewed. br1 13:21 Cardiac Injury Profile Reviewed. br1 13:21 Troponin Reviewed. br1 13:21 -Influenza A&B Rapid Antigen - Nose Reviewed. br1 13:21 Chest, 2 View (pa\E\lat) Reviewed. br1 13:21 Ultrasound Bilateral LE R/O DVT Reviewed. br1 13:38 BED REQUEST+ADM ordered. EDMS 13:38 Furosemide 40 mg IVP once ordered. br1 13:58 Admission / Observation Status ordered. EDMS 13:59 2 GRAM SODIUM DIET ordered. EDMS Administered Medications: 14:03 Drug: Furosemide 40 mg [furosemide 10 mg/mL injection solution (4 mL)] Route: IVP; srm Site: right antecubital; Signatures: Dispatcher [employer] EDMS Inge Pedersen RN RN [facility] Dyana Musa RN RN [facility] Wilver Harden MD MD br1 Gurdeep Trevino mm15 The chart was reviewed and I authenticate all verbal orders and agree with the evaluation and treatment provided.Attachments: 11:48 [facility] Payment Agreement mm15 MTDD
[2016-12-23 15:15] VITALS: BP 149/68
[2016-12-23] MEDS: MAGNESIUM OXIDE 400 MG TAB (MAG-OX) PO SCH (15:51)
[2016-12-23] MEDS: LEVOTHYROXINE 0.075 MG TAB (75 MCG) PO SCH (15:51)
[2016-12-23] MEDS: OMEPRAZOLE 20 MG CAP PO SCH (15:51)
[2016-12-23] MEDS: SPIRONOLACTONE 50 MG TAB PO SCH (15:51)
[2016-12-23 16:45] LABS: INR 1.25
[2016-12-23] MEDS ORDERED: WARFARIN SOD 3 MG TAB PO ONE (17:00)
[2016-12-23] MEDS: WARFARIN SOD 3 MG TAB PO SCH (17:38)
[2016-12-23] MEDS: SUCRALFATE 1 GM TAB PO SCH ×2 (17:38→19:57)
[2016-12-23] MEDS: POTASSIUM CHLORIDE 10 MEQ SR TABLET PO SCH (19:57)
[2016-12-23 22:00] VITALS: BP 130/60
[2016-12-23] MEDS: FUROSEMIDE 100 MG/10 ML VIAL (J1940) IV SCH (22:45)
[2016-12-24 06:00] VITALS: BP 139/66
[2016-12-24] MEDS: FUROSEMIDE 100 MG/10 ML VIAL (J1940) IV SCH ×3 (06:09→21:36)
[2016-12-24] MEDS: LEVOTHYROXINE 0.075 MG TAB (75 MCG) PO SCH (06:09)
[2016-12-24 06:56] LABS: BASO % 0.2 % (0.0-1.0); EOS # 0.1 K/mm3 (0.0-0.50); EOS % 1.8 % (0.0-3.0); LARGE UNSTAINED CELL # 0.2 K/mm3 (0.0-0.4); LARGE UNSTAINED CELL % 3.4 % (0.0-4.0); LYMPH # 1.5 K/mm3 (1.5-4.5); MEAN CORPUSCULAR HEMOGLOBIN 31.7 pg (27.0-33.0); MEAN CORPUSCULAR VOLUME 99.1 fl (80.0-96.0); MONO # 0.4 K/mm3 (0.0-0.8); MONO % 6.7 % (0.0-5.0); NEUTROPHILS # 3.3 K/mm3 (1.8-7.7); PLATELET COUNT, AUTOMATED 229 k/mm3 (150-450); WHITE BLOOD COUNT 5.5 K/mm3 (4.0-10.0)
[2016-12-24 06:59] LABS: INR 1.2
[2016-12-24 07:13] LABS: ANION GAP 9 MEQ/L (8-16); BLOOD UREA NITROGEN 15 MG/DL (7-18); CALCIUM LEVEL 8.2 MG/DL (8.8-10.2); CARBON DIOXIDE LEVEL 29 MEQ/L (21-32); CHLORIDE LEVEL 107 MEQ/L (98-107); CREATININE FOR GFR 0.93 MG/DL (0.55-1.02); GLOMERULAR FILTRATION RATE > 60.0 (>32); GLUCOSE, FASTING 83 MG/DL (83-110); MAGNESIUM LEVEL 1.7 MG/DL (1.8-2.4); POTASSIUM SERUM 3.6 MEQ/L (3.5-5.1); SODIUM LEVEL 145 MEQ/L (136-145)
[2016-12-24] MEDS: SUCRALFATE 1 GM TAB PO SCH ×4 (08:31→21:34)
[2016-12-24] MEDS: OMEPRAZOLE 20 MG CAP PO SCH (08:31)
[2016-12-24] MEDS: SPIRONOLACTONE 50 MG TAB PO SCH (08:31)
[2016-12-24] MEDS: MAGNESIUM OXIDE 400 MG TAB (MAG-OX) PO SCH ×2 (08:31→21:34)
[2016-12-24] MEDS: CYANOCOBALAMIN 500 MCG TAB PO SCH (08:31)
[2016-12-24] MEDS: POTASSIUM CHLORIDE 10 MEQ SR TABLET PO SCH ×2 (08:32→21:35)
--- NOTE | 2016-12-24 11:18 | IPNPDOC ---
Subjective Date Seen The patient was seen on 12/24/16. Subjective Chief Complaint/HPI The patient is a 86-year-old female admitted with a reason for visit of Chf Exacerbation. Events since last encounter Seen and evaluated at the bedside on 4PAV. Diuresing well since admission. Otherwise no acute overnight events. General: Reports: ROS Unobtainable Objective Physical Examination General Exam: Positive: Alert, Cooperative, No Acute Distress Eye Exam: Positive: PERRLA ENT Exam: Positive: Atraumatic, Mucous membr. moist/pink Neck Exam: Positive: Supple, Negative: JVD, thyromegaly Chest Exam: Positive: Normal air movement, Other (mild crackles at bases) Heart Exam: Positive: Irregular Rhythm, Normal S1, Normal S2, Rate Normal, Negative: Murmurs, Rubs Abdomen Exam: Positive: Normal bowel sounds, Soft, Negative: Hepatospenomegaly, Tenderness Extremity Exam: Positive: Edema (1+, pitting) Skin Exam: Positive: Nl turgor and temperature, Negative: Breakdown, Rash Assessment /Plan Problems (1) Acute on chronic diastolic (congestive) heart failure Status: Acute Problem Text: -recently dc for SBO so likely 2/2 to fluid overload during that admission -80 IV lasix q8, diuresing well. Taper tomorrow likely. -1500 cc fluid restriction -daily weights -Aldactone and k+ supplement -echo 2007 c severe TR, moderate pulm htn JFW: will repeat echo (2) Atrial fibrillation, chronic Status: Chronic Problem Text: Subtherapeutic INR. Received 1d 3mg on admission. Home regimen resumed today (6mg M/W, 3mg ROW). Will give 6 mg today since she only received 3 on admission and still subtherapeutic. Close monitoring (3) Hypothyroid Status: Chronic Problem Text: TSH 3.7 / FT4 1.2 (10/17/16) -continue home dose of synthroid (4) CKD (chronic kidney disease) stage 3, GFR 30-59 ml/min Status: Chronic Problem Text: at baseline (1.5) (5) Hypomagnesemia Status: Chronic Problem Text: Low today. Increase oral supplement. Plan/VTE VTE Prophylaxis Ordered?: Yes Disposition JFW: pt seen/examined, case d/w resident. agree with more aggressive diuresis VS, I&O, 24H, Fishbone Vital Signs/I&O Vital Signs Date Time Temp Pulse Resp B/P Pulse Ox O2 Delivery O2 Flow Rate FiO2 12/24/16 06:00 96.8 76 18 139/66 92 Room Air I&O- Last 24 Hours up to 6 AM 12/24/16 06:00 Intake Total 690 ml Output Total 0 ml Balance 690 ml Laboratory Data 24H LABS Laboratory Tests 2 12/23/16 16:19: Prothromb Time International Ratio 1.25, Prothrombin Time 15.8H 12/24/16 06:31: Prothromb Time International Ratio 1.20, Prothrombin Time 15.3H, Anion Gap 9, White Blood Count 5.5, Red Blood Count 4.32, Hemoglobin 13.7, Hematocrit 42.8, Mean Corpuscular Volume 99.1H, Mean Corpuscular Hemoglobin 31.7, Mean Corpuscular Hemoglobin Concent 32.0, Red Cell Distribution Width 14.0, Platelet Count 229, Neutrophils (%) (Auto) 61.0, Lymphocytes (%) (Auto) 27.0, Monocytes ( %) (Auto) 6.7H, Eosinophils (%) (Auto) 1.8, Basophils (%) (Auto) 0.2, Neutrophils # (Auto) 3.3, Lymphocytes # (Auto) 1.5, Monocytes # (Auto) 0.4, Eosinophils # (Auto) 0.1, Basophils # (Auto) 0.0, Blood Urea Nitrogen 15, Creatinine 0.93, Sodium Level 145, Potassium Level 3.6, Chloride Level 107, Carbon Dioxide Level 29, Calcium Level 8.2L, Glomerular Filtration Rate > 60.0, Large Unclassified Cells # 0.2, Large Unclassified Cells % 3.4, Magnesium Level 1.7L CBC/BMP Laboratory Tests 12/24/16 06:31 Calcium Level 8.2 L, Red Blood Count 4.32, Mean Corpuscular Volume 99.1 H, Mean Corpuscular Hemoglobin 31.7, Mean Corpuscular Hemoglobin Concent 32.0, Red Cell Distribution Width 14.0, Neutrophils (%) (Auto) 61.0, Lymphocytes (%) (Auto) 27.0, Monocytes (%) (Auto) 6.7 H, Eosinophils (%) (Auto) 1.8, Basophils (%) ( Auto) 0.2, Neutrophils # (Auto) 3.3, Lymphocytes # (Auto) 1.5, Monocytes # (Auto ) 0.4, Eosinophils # (Auto) 0.1, Basophils # (Auto) 0.0 Microbiology Microbiology 12/23/16 Influenza Virus Type A Antigen - Final, Complete 12/23/16 Influenza Virus Type B Antigen - Final, Complete DILLON JASSO DO Dec 24, 2016 11:18 Estuardo Bowling MD Dec 24, 2016 16:02
[2016-12-24 14:00] VITALS: BP 139/65
[2016-12-24] MEDS ORDERED: WARFARIN SOD 3 MG TAB PO SCH (17:00)
[2016-12-24] MEDS ORDERED: WARFARIN SOD 3 MG TAB PO ONE (17:00)
[2016-12-24 22:00] VITALS: BP 136/65
[2016-12-25] MEDS: FUROSEMIDE 100 MG/10 ML VIAL (J1940) IV SCH (05:45)
[2016-12-25] MEDS: LEVOTHYROXINE 0.075 MG TAB (75 MCG) PO SCH (05:45)
[2016-12-25 06:00] VITALS: BP 138/67
[2016-12-25 07:00] LABS: BASO % 0.3 % (0.0-1.0); EOS # 0.1 K/mm3 (0.0-0.50); EOS % 2.4 % (0.0-3.0); LARGE UNSTAINED CELL # 0.2 K/mm3 (0.0-0.4); LARGE UNSTAINED CELL % 3.4 % (0.0-4.0); LYMPH # 1.6 K/mm3 (1.5-4.5); LYMPH % 26.2 % (24.0-44.0); MEAN CORPUSCULAR HEMOGLOBIN 31.7 pg (27.0-33.0); MEAN CORPUSCULAR HGB CONC 32.4 g/dl (32.0-36.5); MEAN CORPUSCULAR VOLUME 97.8 fl (80.0-96.0); MONO # 0.5 K/mm3 (0.0-0.8); MONO % 8.8 % (0.0-5.0); NEUTROPHILS # 3.5 K/mm3 (1.8-7.7); NEUTROPHILS % 58.9 % (36.0-66.0); PLATELET COUNT, AUTOMATED 259 k/mm3 (150-450); WHITE BLOOD COUNT 5.9 K/mm3 (4.0-10.0)
[2016-12-25 07:03] LABS: INR 1.46
[2016-12-25 07:18] LABS: CALCIUM LEVEL 9.2 MG/DL (8.8-10.2); CREATININE FOR GFR 1.02 MG/DL (0.55-1.02); GLOMERULAR FILTRATION RATE 54.4 (>32); POTASSIUM SERUM 3.9 MEQ/L (3.5-5.1)
[2016-12-25] MEDS: OMEPRAZOLE 20 MG CAP PO SCH (08:20)
[2016-12-25] MEDS: MAGNESIUM OXIDE 400 MG TAB (MAG-OX) PO SCH ×2 (08:20→21:21)
[2016-12-25] MEDS: SUCRALFATE 1 GM TAB PO SCH ×4 (08:20→21:21)
[2016-12-25] MEDS: POTASSIUM CHLORIDE 10 MEQ SR TABLET PO SCH ×2 (08:20→21:21)
[2016-12-25] MEDS: CYANOCOBALAMIN 500 MCG TAB PO SCH (08:21)
[2016-12-25] MEDS: SPIRONOLACTONE 50 MG TAB PO SCH (08:21)
--- NOTE | 2016-12-25 09:43 | ECGEPIP ---
Stationary ECG Study [facility] - ED Test Date: 2016-12-23 Pat Name: URI REESE Department: Room: [place] [address] Gender: F Crane Operator Cab: rn : 1930 Requested By: SUZANNE Hernandez Order Number: [id number] Reading MD: Rupert Ceron Measurements Intervals [place] Rate: 72 P: WI: 0 QRS: 87 QRSD: 112 T: 4 QT: 413 QTc: 454 Interpretive Statements SINUS RHYTHM WITH 1ST DEGREE AV BLOCK POSSIBLE ANTERIOR MYOCARDIAL INFARCTION, OF INDETERMINATE AGE Electronically Signed On 12-25-2016 9:43:24 EST by Rupert Ceron
--- NOTE | 2016-12-25 11:01 | IPNPDOC ---
Subjective Date Seen The patient was seen on 12/25/16. Subjective Chief Complaint/HPI The patient is a 86-year-old female admitted with a reason for visit of Chf Exacerbation. Events since last encounter Clinically diruesing well. BUN and bicarb up slightly today suggestive of the beginning stages of contraction alkalosis. General: Reports: Normal Appetite, Denies: Chills, Fatigue, Malaise, Night Sweats Objective Physical Examination General Exam: Positive: Alert, Cooperative, No Acute Distress Eye Exam: Positive: PERRLA ENT Exam: Positive: Atraumatic, Mucous membr. moist/pink Neck Exam: Positive: JVD (5-6 cm), Supple, Negative: thyromegaly Chest Exam: Positive: Normal air movement, Other (mild crackles at bases) Heart Exam: Positive: Irregular Rhythm, Normal S1, Normal S2, Rate Normal, Negative: Murmurs, Rubs Abdomen Exam: Positive: Normal bowel sounds, Soft, Negative: Hepatospenomegaly, Tenderness Extremity Exam: Positive: Edema (1+, pitting) Skin Exam: Positive: Nl turgor and temperature, Negative: Breakdown, Rash Assessment /Plan Problems (1) Acute on chronic diastolic (congestive) heart failure Status: Acute Problem Text: -Diuresing well c 80 iv lasix q8; taper to 40q8 today. -1500 cc fluid restriction -daily weights -Aldactone and k+ supplement -echo 2007 c severe TR, moderate pulm htn; will repeat 12/25 JFW: neck veins down, edema is less. prob be at goal volume by tomorrow. Echo ordered, no report (2) Atrial fibrillation, chronic Status: Chronic Problem Text: Subtherapeutic INR. Received 1d 3mg on admission. Home regimen resumed today (6mg M/W, 3mg ROW). Will give 6 mg today since she only received 3 on admission and still subtherapeutic. Close monitoring (3) Hypothyroid Status: Chronic Problem Text: TSH 3.7 / FT4 1.2 (10/17/16) -continue home dose of synthroid (4) CKD (chronic kidney disease) stage 3, GFR 30-59 ml/min Status: Chronic Problem Text: at baseline (1.5) (5) Hypomagnesemia Status: Chronic Problem Text: Low today. Increase oral supplement. Plan/VTE VTE Prophylaxis Ordered?: Yes VS, I&O, 24H, Joshua Vital Signs/I&O Vital Signs Date Time Temp Pulse Resp B/P Pulse Ox O2 Delivery O2 Flow Rate FiO2 12/25/16 06:00 98.4 64 15 138/67 94 Room Air I&O- Last 24 Hours up to 6 AM 12/25/16 06:00 Intake Total 2080 ml Output Total 700 ml Balance 1380 ml Laboratory Data 24H LABS Laboratory Tests 2 12/25/16 06:30: Anion Gap 8, White Blood Count 5.9, Red Blood Count 4.42, Hemoglobin 14.0, Hematocrit 43.2, Mean Corpuscular Volume 97.8H, Mean Corpuscular Hemoglobin 31.7 , Mean Corpuscular Hemoglobin Concent 32.4, Red Cell Distribution Width 14.0, Platelet Count 259, Neutrophils (%) (Auto) 58.9, Lymphocytes (%) (Auto) 26.2, Monocytes (%) (Auto) 8.8H, Eosinophils (%) (Auto) 2.4, Basophils (%) (Auto) 0.3 , Neutrophils # (Auto) 3.5, Lymphocytes # (Auto) 1.6, Monocytes # (Auto) 0.5, Eosinophils # (Auto) 0.1, Basophils # (Auto) 0.0, Blood Urea Nitrogen 21H, Creatinine 1.02, Sodium Level 142, Potassium Level 3.9, Chloride Level 101, Carbon Dioxide Level 33H, Calcium Level 9.2, Glomerular Filtration Rate 54.4, Large Unclassified Cells # 0.2, Large Unclassified Cells % 3.4, Magnesium Level 2.0, Prothromb Time International Ratio 1.46, Prothrombin Time 17.8H CBC/BMP Laboratory Tests 12/25/16 06:30 Calcium Level 9.2, Red Blood Count 4.42, Mean Corpuscular Volume 97.8 H, Mean Corpuscular Hemoglobin 31.7, Mean Corpuscular Hemoglobin Concent 32.4, Red Cell Distribution Width 14.0, Neutrophils (%) (Auto) 58.9, Lymphocytes (%) (Auto) 26.2, Monocytes (%) (Auto) 8.8 H, Eosinophils (%) (Auto) 2.4, Basophils (%) ( Auto) 0.3, Neutrophils # (Auto) 3.5, Lymphocytes # (Auto) 1.6, Monocytes # (Auto ) 0.5, Eosinophils # (Auto) 0.1, Basophils # (Auto) 0.0 Microbiology Microbiology 12/23/16 Influenza Virus Type A Antigen - Final, Complete 12/23/16 Influenza Virus Type B Antigen - Final, Complete DILLON JASSO DO Dec 25, 2016 11:01 Estuardo Bowling MD Dec 25, 2016 15:56
[2016-12-25 14:00] VITALS: BP 140/64
[2016-12-25] MEDS: FUROSEMIDE 40 MG/4 ML VIAL (J1940) IV SCH ×2 (14:23→21:21)
--- NOTE | 2016-12-25 16:11 | EDDOCDS ---
Physician Documentation [facility] Name: Alba Browning Age: 86 yrs Sex: Female : 1930 Arrival Date: 12/23/2016 Time: 10:05 Bed 5 Private MD: Disposition: 12/23/16 13:41 Hospitalization ordered by Maite Sousa for Inpatient Admission. Preliminary diagnosis is Acute systolic (congestive) heart failure. - Bed requested for 4 [place]. - Status is Inpatient Admission. srm - Condition is Stable. - Problem is new. - Symptoms are unchanged. Historical: - Allergies: no known allergies; - Home Meds: 1. vit B 12 1,000 mcg daily 2. vit D2 1.25 mg weekly 3. furosemide 40 mg Oral tab 1 tab 2 times per day 4. levothyroxine 75 mcg Oral tab 1 tab once daily 5. magnesium oxide 400 mg Oral tab daily 6. omeprazole 40 mg Oral cpDR 1 cap once daily 7. potassium chloride 20 mEq Oral TbER 1 tab 2 times per day 8. spironolactone 50 mg Oral tab 1 tab once daily 9. sucralfate 1 gram Oral tab 1 tab 4 times per day 10. warfarin 3 mg tu, , fri, sat, sun Oral tab 11. warfarin 6 mg mon and wed Oral tab 1 tab once daily - PMHx: Atrial Fib; CHF; CVA; Hypercholesterolemia; Hypertension; SMALL BOWEL OBSTRUCTION.; abdominal hernia; - PSHx: Hysterectomy; Cataract Surgery- Bilateral; Pacemaker Insertion; Cardiac stents; lysis of adhesions; - Social history: Smoking status: Patient states was never smoker of tobacco. The software security architect used to assist in communication was the patient's family, Patient is hearing impaired. - Family history: Not pertinent. - : The pt / caregiver states he / she is on anticoagulants: coumadin. Home medication list is obtained from family members, a discharge med list. - Exposure Risk Screening:: None identified. Vital Signs: 12/23 10:12 BP 163 / 80 (auto/); srm 10:14 Pulse 86 MON; Pulse Ox 94% ; srm 10:18 BP 163 / 80; Pulse 92; Resp 20; Temp 98.7(TE); Pulse Ox 95% on R/A; Weight 58.74 kg / rn1 129.5 lbs (M); Height 5 ft. 5 in. (165.10 cm); Pain 0/10; 10:22 BP 166 / 79 (auto/); srm 10:22 Pulse 78 MON; Pulse Ox 95% ; srm 10:52 Pulse 72 MON; Pulse Ox 91% ; srm 10:52 BP 147 / 71 (auto/); srm 11:21 Pulse 70 MON; Pulse Ox 94% ; srm 11:22 BP 147 / 67 (auto/); srm 11:52 BP 152 / 71 (auto/); srm 11:52 Pulse 68 MON; Resp 20; Pulse Ox 95% ; srm 12:22 Pulse 66 MON; Pulse Ox 95% ; srm 12:22 BP 157 / 72 (auto/); srm 12:52 Pulse 66 MON; Pulse Ox 96% ; srm 12:52 BP 154 / 74 (auto/); srm 13:22 BP 152 / 73 (auto/); srm 13:22 Pulse 66 MON; Resp 20; Pulse Ox 94% ; srm 13:52 BP 158 / 72 (auto/); srm 13:52 Pulse 68 MON; Temp 98.5(TE); Pulse Ox 96% on R/A; srm 15:05 BP 125 / 59 (auto/); srm 15:05 Pulse 72 MON; Resp 20; Temp 98(TE); Pulse Ox 94% on R/A; srm 10:18 Body Mass Index 21.55 (58.74 kg, 165.10 cm) rn1 MDM: 10:13 Ged Instructor/Pulse Ox/q 30 min VS ordered. br1 10:13 IV Saline Lock ordered. br1 10:13 Rhythm Strip to chart ordered. br1 10:13 Undress patient appropriately for examination ordered. br1 10:13 B-Type Natiuretic Peptide Ordered. EDMS 10:13 Basic Metabolic Profile Ordered. EDMS 10:13 CBC with Diff Ordered. EDMS 10:13 Cardiac Injury Profile Ordered. EDMS 10:13 Troponin Ordered. EDMS 10:14 ECG WITH READING ER PHYS+CARDIAG ordered. EDMS 10:14 Chest, 2 View (pa\E\lat) Ordered. EDMS 11:12 -Influenza A&B Rapid Antigen - Nose Ordered. EDMS 11:13 Ultrasound Bilateral LE R/O DVT Ordered. EDMS 11:42 Financial registration complete. mm15 11:48 [facility] Payment Agreement was scanned into [employer] and attached to record. mm15 13:21 B-Type Natiuretic Peptide Reviewed. br1 13:21 Basic Metabolic Profile Reviewed. br1 13:21 CBC with Diff Reviewed. br1 13:21 Cardiac Injury Profile Reviewed. br1 13:21 Troponin Reviewed. br1 13:21 -Influenza A&B Rapid Antigen - Nose Reviewed. br1 13:21 Chest, 2 View (pa\E\lat) Reviewed. br1 13:21 Ultrasound Bilateral LE R/O DVT Reviewed. br1 13:38 BED REQUEST+ADM ordered. EDMS 13:38 Furosemide 40 mg IVP once ordered. br1 13:58 Admission / Observation Status ordered. EDMS 13:59 2 GRAM SODIUM DIET ordered. EDMS Administered Medications: 14:03 Drug: Furosemide 40 mg [furosemide 10 mg/mL injection solution (4 mL)] Route: IVP; srm Site: right antecubital; Signatures: Dispatcher [employer] EDMS Inge Pedersen RN RN [facility] Dyana Musa RN RN [facility] Wilver Harden MD MD br1 Gurdeep Trevino mm15 The chart was reviewed and I authenticate all verbal orders and agree with the evaluation and treatment provided.Attachments: 11:48 [facility] Payment Agreement mm15 Chart Complete MTDD
--- NOTE | 2016-12-25 16:11 | EDDOCDS ---
Nurse's Notes [facility] Name: Alba Browning Age: 86 yrs Sex: Female : 1930 Arrival Date: 12/23/2016 Time: 10:05 Bed 5 Private MD: Diagnosis: Acute systolic (congestive) heart failure Presentation: 12/23 10:07 Presenting complaint: EMS states: initial pox low and highest they got her up to 89%. srm placed on NRB and neb tx just d/c'd from here yesterday after having bowel surgery last . yesterday upon discharge noted to have swollen feet and daughter told staff. upon arrival to home had difficulty breathing but got better. Adult Sepsis Screening: The patient does not have new or worsening altered mentation. Patient's respiratory rate is less than 22. Systolic blood pressure is greater than 100. Patient has a qSOFA score of 0- Negative Sepsis Screen. Suicide/Homicide risk assessment- the patient denies having any suicidal and/or homicidal ideations and does not present with any other emotional, behavioral or mental health complaints. Status: Patient is not a guest services attendant or dependent. Transition of care: patient was not received from another setting of care. 10:07 Acuity: CHELSIE Level 3 srm 10:07 Method Of Arrival: Ambulance srm 10:14 Care prior to arrival: Glucose check. 136. [facility] Triage Assessment: 10:16 General: Appears in no apparent distress, Behavior is appropriate for age, cooperative. srm Pain: Denies pain. Respiratory: Onset: The symptoms/episode began/occurred gradually, Airway is patent Respiratory effort is even, unlabored, Breath sounds are clear bilaterally. Historical: - Allergies: no known allergies; - Home Meds: 1. vit B 12 1,000 mcg daily 2. vit D2 1.25 mg weekly 3. furosemide 40 mg Oral tab 1 tab 2 times per day 4. levothyroxine 75 mcg Oral tab 1 tab once daily 5. magnesium oxide 400 mg Oral tab daily 6. omeprazole 40 mg Oral cpDR 1 cap once daily 7. potassium chloride 20 mEq Oral TbER 1 tab 2 times per day 8. spironolactone 50 mg Oral tab 1 tab once daily 9. sucralfate 1 gram Oral tab 1 tab 4 times per day 10. warfarin 3 mg tu, thurs, fri, sat, sun Oral tab 11. warfarin 6 mg mon and wed Oral tab 1 tab once daily - PMHx: Atrial Fib; CHF; CVA; Hypercholesterolemia; Hypertension; SMALL BOWEL OBSTRUCTION.; abdominal hernia; - PSHx: Hysterectomy; Cataract Surgery- Bilateral; Pacemaker Insertion; Cardiac stents; lysis of adhesions; - Social history: Smoking status: Patient states was never smoker of tobacco. The demand generation manager used to assist in communication was the patient's family, Patient is hearing impaired. - Family history: Not pertinent. - : The pt / caregiver states he / she is on anticoagulants: coumadin. Home medication list is obtained from family members, a discharge med list. - Exposure Risk Screening:: None identified. Screenin:15 Screening information is obtained from family members. Fall risk: No risks identified. srm Assistance ADL's: requires no assistance with activities of daily living. Abuse/DV Screen: The patient / caregiver reports he/she is: not in a situation that causes fear, pain or injury. Nutritional screening: No deficits noted. Advance Directives: Currently, there is a health care proxy, daughter luisana arora. There is an active DNR order but there is no copy available at this time. home support is adequate. Assessment: 10:22 Cardiovascular: Capillary refill < 3 seconds in bilateral fingers Heart tones present. srm Cardiovascular: Rhythm is regular. GI: Abdomen is non- distended other dressings x3 to abdomen are clean dry and intact Bowel sounds present X 4 quads. Derm: edema to lower extremities. 10:58 General: Appears in no apparent distress, Behavior is appropriate for age, cooperative. srm Neurological: Level of Consciousness is awake, alert, Oriented to person, place, time, Edger Tailer are equal bilaterally Speech is normal, Facial symmetry appears normal. Cardiovascular: Rhythm is regular. Respiratory: Airway is patent Respiratory effort is even, unlabored. 12:21 Reassessment: Patient appears in no apparent distress at this time. Respiratory: Airway srm is patent Respiratory effort is even, unlabored. 14:04 General: Appears in no apparent distress, Behavior is appropriate for age, cooperative. srm Respiratory: Airway is patent Respiratory effort is even, unlabored, Breath sounds are clear bilaterally. GI: Abdomen is non- distended Bowel sounds present X 4 quads. Abd is soft and non tender X 4 quads. 15:08 Reassessment: Patient appears in no apparent distress at this time. General: Appears in srm no apparent distress, Behavior is appropriate for age, cooperative. Neurological: No deficits noted. EENT: No deficits noted. Cardiovascular: Rhythm is regular. Respiratory: No deficits noted. Vital Signs: 10:12 BP 163 / 80 (auto/); srm 10:14 Pulse 86 MON; Pulse Ox 94% ; srm 10:18 BP 163 / 80; Pulse 92; Resp 20; Temp 98.7(TE); Pulse Ox 95% on R/A; Weight 58.74 kg rn1 (M); Height 5 ft. 5 in. (165.10 cm); Pain 0/10; 10:22 BP 166 / 79 (auto/); srm 10:22 Pulse 78 MON; Pulse Ox 95% ; srm 10:52 Pulse 72 MON; Pulse Ox 91% ; srm 10:52 BP 147 / 71 (auto/); srm 11:21 Pulse 70 MON; Pulse Ox 94% ; srm 11:22 BP 147 / 67 (auto/); srm 11:52 BP 152 / 71 (auto/); srm 11:52 Pulse 68 MON; Resp 20; Pulse Ox 95% ; srm 12:22 Pulse 66 MON; Pulse Ox 95% ; srm 12:22 BP 157 / 72 (auto/); srm 12:52 Pulse 66 MON; Pulse Ox 96% ; srm 12:52 BP 154 / 74 (auto/); srm 13:22 BP 152 / 73 (auto/); srm 13:22 Pulse 66 MON; Resp 20; Pulse Ox 94% ; srm 13:52 BP 158 / 72 (auto/); srm 13:52 Pulse 68 MON; Temp 98.5(TE); Pulse Ox 96% on R/A; srm 15:05 BP 125 / 59 (auto/); srm 15:05 Pulse 72 MON; Resp 20; Temp 98(TE); Pulse Ox 94% on R/A; srm 10:18 Body Mass Index 21.55 (58.74 kg, 165.10 cm) rn1 Vitals: 10:16 Log In Time N/A - ambulance arrival. [facility] ED Course: 10:06 Patient visited by Mara Green, Coastal And Estuary Specialist. deg 10:06 Patient moved to Waiting deg 10:06 Patient moved to 5 srm 10:10 Triage Initiated [facility] 10:15 The patient / caregiver is instructed regarding the plan of care and ED course. srm Accompanied by Family Member, Patient has correct armband on for positive identification. Placed in gown. Bed in low position. Call light in reach. Side rails up X2. monitoring manager on. Pulse ox on. 10:22 B-Type Natiuretic Peptide Sent. srm 10:22 Basic Metabolic Profile Sent. srm 10:22 CBC with Diff Sent. srm 10:22 Cardiac Injury Profile Sent. srm 10:22 Troponin Sent. srm 10:22 Inserted saline lock: 20 gauge in right antecubital area and blood collected. by H ilda Ybarra RN. 10:24 Patient visited by Dyana Musa RN. srm 10:39 EKG done. (by ED staff). Reviewed by Wilver Harden MD. rn1 10:41 Wilver Harden MD is Attending Physician. br1 10:59 Patient visited by Dyana Musa RN. srm 11:10 Patient visited by Wilver Harden MD. br1 11:25 -Influenza A&B Rapid Antigen - Nose Sent. srm 11:35 Chest, 2 View (pa\E\lat) Returned. EDMS 11:48 [facility] Payment Agreement was scanned into [employer] and attached to record. mm15 12:21 Patient visited by Dyana Musa RN. srm 12:40 Ultrasound Bilateral LE R/O DVT Returned. EDMS 13:36 Patient visited by Wilver Harden MD. br1 13:41 Maite Sousa is Hospitalizing Provider. br1 14:05 Patient visited by Dyana Musa RN. srm 14:20 No procedures done that require assistance. srm 14:23 Patient visited by Dyana Musa RN. srm 14:23 Diet: Patient given regular meal. srm Administered Medications: 14:03 Drug: Furosemide 40 mg [furosemide 10 mg/mL injection solution (4 mL)] Route: IVP; srm Site: right antecubital; Order Results: Lab Order: B-Type Natiuretic Peptide; SPEC'M 12/23/16 10:17 Test: BRAIN NATRIURETIC PEPTIDE; Value: 520; Range: <100; Abnormal: Above high normal; Units: PG/ML; Status: F Lab Order: Basic Metabolic Profile; SPEC'M 12/23/16 10:17 Test: GLUCOSE, FASTING; Value: 140; Range: 83-110; Abnormal: Above high normal; Units: MG/DL; Status: F Test: BLOOD UREA NITROGEN; Value: 16; Range: 7-18; Units: MG/DL; Status: F Test: CREATININE FOR GFR; Value: 1.08; Range: 0.55-1.02; Abnormal: Above high normal; Units: MG/DL; Status: F Test: GLOMERULAR FILTRATION RATE; Value: 51.0; Range: >32; Status: F Test: SODIUM LEVEL; Value: 142; Range: 136-145; Units: MEQ/L; Status: F Test: POTASSIUM SERUM; Value: 4.1; Range: 3.5-5.1; Units: MEQ/L; Status: F Test: CHLORIDE LEVEL; Value: 105; Range: 98-107; Units: MEQ/L; Status: F Test: CARBON DIOXIDE LEVEL; Value: 29; Range: 21-32; Units: MEQ/L; Status: F Test: ANION GAP; Value: 8; Range: 8-16; Units: MEQ/L; Status: F Test: CALCIUM LEVEL; Value: 8.4; Range: 8.8-10.2; Abnormal: Below low normal; Units: MG/DL; Status: F Test Note: ; Units are mL/min/1.73 m2 Chronic Kidney Disease Staging per NKF: Stage I & II GFR >=60 Normal to Mildly Decreased Stage III GFR 30-59 Moderately Decreased Stage IV GFR 15-29 Severely Decreased Stage V GFR <15 Very Little GFR Left ESRD GFR <15 on SPA TECHNICIAN Lab Order: CBC with Diff; SPEC'M 12/23/16 10:17 Test: WHITE BLOOD COUNT; Value: 5.9; Range: 4.0-10.0; Units: K/mm3; Status: F Test: RED BLOOD COUNT; Value: 4.73; Range: 4.00-5.40; Units: M/mm3; Status: F Test: HEMOGLOBIN; Value: 15.2; Range: 12.0-16.0; Units: g/dl; Status: F Test: HEMATOCRIT; Value: 46.9; Range: 36.0-47.0; Units: %; Status: F Test: MEAN CORPUSCULAR VOLUME; Value: 99.2; Range: 80.0-96.0; Abnormal: Above high normal; Units: fl; Status: F Test: MEAN CORPUSCULAR HEMOGLOBIN; Value: 32.1; Range: 27.0-33.0; Units: pg; Status: F Test: MEAN CORPUSCULAR HGB CONC; Value: 32.3; Range: 32.0-36.5; Units: g/dl; Status: F Test: RED CELL DISTRIBUTION WIDTH; Value: 14.0; Range: 11.5-14.5; Units: %; Status: F Test: PLATELET COUNT, AUTOMATED; Value: 259; Range: 150-450; Units: k/mm3; Status: F Test: NEUTROPHILS %; Value: 61.3; Range: 36.0-66.0; Units: %; Status: F Test: LYMPH %; Value: 29.3; Range: 24.0-44.0; Units: %; Status: F Test: MONO %; Value: 5.5; Range: 0.0-5.0; Abnormal: Above high normal; Units: %; Status: F Test: EOS %; Value: 1.4; Range: 0.0-3.0; Units: %; Status: F Test: BASO %; Value: 0.4; Range: 0.0-1.0; Units: %; Status: F Test: LARGE UNSTAINED CELL %; Value: 2.2; Range: 0.0-4.0; Units: %; Status: F Test: NEUTROPHILS #; Value: 3.6; Range: 1.8-7.7; Units: K/mm3; Status: F Test: LYMPH #; Value: 1.7; Range: 1.5-4.5; Units: K/mm3; Status: F Test: MONO #; Value: 0.3; Range: 0.0-0.8; Units: K/mm3; Status: F Test: EOS #; Value: 0.1; Range: 0.0-0.50; Units: K/mm3; Status: F Test: BASO #; Value: 0.0; Range: 0.0-0.2; Units: K/mm3; Status: F Test: LARGE UNSTAINED CELL #; Value: 0.1; Range: 0.0-0.4; Units: K/mm3; Status: F Lab Order: Cardiac Injury Profile; SPEC'M 12/23/16 10:17 Test: CPK CREATINE PHOSPHOKINASE; Value: 49; Range: 26-192; Units: U/L; Status: F Test: CK-MB VALUE MASS; Value: 2.0; Range: 0.0-3.6; Units: NG/ML; Status: F Test: MB/CK RELATIVE INDEX; Value: 4.08; Range: < OR =4; Abnormal: Above high normal; Status: F Test Note: ; DIAGNOSIS CRITERIA MMB ng/ml Relative Index (RI) NON-AMI < or = 5 N/A AU ZONE > 5 < or = 4 AMI > 5 > 4 Lab Order: Troponin; SPEC'M 12/23/16 10:17 Test: TROPONIN I; Value: 0.02; Range: < 0.10; Units: NG/ML; Status: F Test Note: ; Troponin I Reference Interval for Sqoot LOCI: 99th Percentile= 0.00-0.045 ng/ml Risk Stratification: <= 0.10 ng/ml Decreased Risk for Adverse Clinical Events. 0.10-1.50 ng/ml Increased Risk for Adverse Clinical Events. Evaluation of additional criterion and/or repeat testing in 2-6 hours is suggested to rule out myocardial damage. >= 1.50 ng/ml Indicative of Myocardial Injury. Lab Order: -Influenza A&B Rapid Antigen - Nose; SPEC'M 12/23/16 11:24 Test: INFLUENZA A RAPID SCR by ICA; Value: INFLUENZA A RESULTS NEGATIVE; Status: F Test: INFLUENZA A RAPID SCR by ICA; Value: Comments:; Status: F Test: INFLUENZA B RAPID SCR by ICA; Value: INFLUENZA B RESULTS NEGATIVE; Status: F Test Note: ; The Influenza test is a direct rapid immunoassay for the qualitative detection of Influenza viral antigen. Cell culture (Viral Culture) testing should be considered to confirm NEGATIVE results and to assist in detecting other viruses that can provide similar clinical symptoms. Please contact the lab within 24 hours ([phone]) if confirmatory testing is desired. Radiology Order: Chest, 2 View (pa\E\lat) Test: Chest, 2 View (pa\E\lat) REASON FOR EXAMINATION: Shortness of Breath; TWO-VIEW CHEST:; ; Two views of the chest are performed.; ; COMPARISON: 02/04/2014; ; There is significant cardiomegaly. There is vascular congestion. There is; bibasilar alveolar edema. Moderate bilateral effusions are seen. There is a left; signal lead pacemaker. There are degenerative changes of the spine. There are; compression deformities of the thoracic vertebral bodies, which are stable.; ; IMPRESSION:; Findings compatible with congestive heart failure and pulmonary edema, with; cardiomegaly and bilateral effusions.; ; Unreviewed; Radiology Order: Ultrasound Bilateral LE R/O DVT Test: Ultrasound Bilateral LE R/O DVT REASON FOR EXAMINATION: Deformity/Swelling; Bilateral lower extremity Duplex Doppler venous ultrasound:; ; Real time compression and duplex Doppler interrogation of the bilateral lower; extremity deep venous system is performed. Bilaterally, the common femoral,; superficial femoral and popliteal veins are fully compressible with transducer; pressure and demonstrate normal spontaneous and phasic flow, without evidence of; deep venous thrombosis.; ; Impression:; ; No evidence of deep venous thrombosis of the bilateral lower extremity femoral; popliteal venous system. Popliteal cyst on the right measures 5.5 x 1.6 x 2.6; cm.; ; ; Signed by; Stephane Au MD 12/23/2016 12:05 P; Outcome: 13:41 Decision to Hospitalize by Provider. br1 14:23 Discharge Assessment: Patient awake, alert and oriented x 3. No cognitive and/or srm functional deficits noted. Patient verbalized understanding of disposition instructions. patient administered narcotics - no. The following High Risk Discharge criteria are identified: None. Condition: stable. Property :Personal belongings accompany Pt. 14:23 No special radiology studies were completed. srm 15:05 Admitted to Med/Surg accompanied by tech, via stretcher, with chart. srm 15:09 Patient left the ED. srm Signatures: Dispatcher [employer] EDMS Mara Green, Coastal And Estuary Specialist Unit deg Dyana Musa, RN RN srm Wilver Harden MD MD br1 Gurdeep Trevino mm15 Jesus Pozo rn1 Chart Complete MTDD
--- NOTE | 2016-12-25 16:11 | EDDOCDS ---
Physician Documentation Name: Alba Browning Age: 86 yrs Sex: Female : 1930 Arrival Date: 12/23/2016 Time: 10:05 Bed 5 Private MD: Disposition: 12/23/16 13:41 Hospitalization ordered by Maite Sousa for Inpatient Admission. Preliminary diagnosis is Acute systolic (congestive) heart failure. - Bed requested for 4 [place]. - Status is Inpatient Admission. srm - Condition is Stable. - Problem is new. - Symptoms are unchanged. Historical: - Allergies: no known allergies; - Home Meds: 1. vit B 12 1,000 mcg daily 2. vit D2 1.25 mg weekly 3. furosemide 40 mg Oral tab 1 tab 2 times per day 4. levothyroxine 75 mcg Oral tab 1 tab once daily 5. magnesium oxide 400 mg Oral tab daily 6. omeprazole 40 mg Oral cpDR 1 cap once daily 7. potassium chloride 20 mEq Oral TbER 1 tab 2 times per day 8. spironolactone 50 mg Oral tab 1 tab once daily 9. sucralfate 1 gram Oral tab 1 tab 4 times per day 10. warfarin 3 mg tu, , fri, sat, sun Oral tab 11. warfarin 6 mg mon and wed Oral tab 1 tab once daily - PMHx: Atrial Fib; CHF; CVA; Hypercholesterolemia; Hypertension; SMALL BOWEL OBSTRUCTION.; abdominal hernia; - PSHx: Hysterectomy; Cataract Surgery- Bilateral; Pacemaker Insertion; Cardiac stents; lysis of adhesions; - Social history: Smoking status: Patient states was never smoker of tobacco. The dental laboratory assistant used to assist in communication was the patient's family, Patient is hearing impaired. - Family history: Not pertinent. - : The pt / caregiver states he / she is on anticoagulants: coumadin. Home medication list is obtained from family members, a discharge med list. - Exposure Risk Screening:: None identified. Vital Signs: 12/23 10:12 BP 163 / 80 (auto/); srm 10:14 Pulse 86 MON; Pulse Ox 94% ; srm 10:18 BP 163 / 80; Pulse 92; Resp 20; Temp 98.7(TE); Pulse Ox 95% on R/A; Weight 58.74 kg / rn1 129.5 lbs (M); Height 5 ft. 5 in. (165.10 cm); Pain 0/10; 10:22 BP 166 / 79 (auto/); srm 10:22 Pulse 78 MON; Pulse Ox 95% ; srm 10:52 Pulse 72 MON; Pulse Ox 91% ; srm 10:52 BP 147 / 71 (auto/); srm 11:21 Pulse 70 MON; Pulse Ox 94% ; srm 11:22 BP 147 / 67 (auto/); srm 11:52 BP 152 / 71 (auto/); srm 11:52 Pulse 68 MON; Resp 20; Pulse Ox 95% ; srm 12:22 Pulse 66 MON; Pulse Ox 95% ; srm 12:22 BP 157 / 72 (auto/); srm 12:52 Pulse 66 MON; Pulse Ox 96% ; srm 12:52 BP 154 / 74 (auto/); srm 13:22 BP 152 / 73 (auto/); srm 13:22 Pulse 66 MON; Resp 20; Pulse Ox 94% ; srm 13:52 BP 158 / 72 (auto/); srm 13:52 Pulse 68 MON; Temp 98.5(TE); Pulse Ox 96% on R/A; srm 15:05 BP 125 / 59 (auto/); srm 15:05 Pulse 72 MON; Resp 20; Temp 98(TE); Pulse Ox 94% on R/A; srm 10:18 Body Mass Index 21.55 (58.74 kg, 165.10 cm) rn1 MDM: 10:13 Photogrammetric Stereo Compiler/Pulse Ox/q 30 min VS ordered. br1 10:13 IV Saline Lock ordered. br1 10:13 Rhythm Strip to chart ordered. br1 10:13 Undress patient appropriately for examination ordered. br1 10:13 B-Type Natiuretic Peptide Ordered. EDMS 10:13 Basic Metabolic Profile Ordered. EDMS 10:13 CBC with Diff Ordered. EDMS 10:13 Cardiac Injury Profile Ordered. EDMS 10:13 Troponin Ordered. EDMS 10:14 ECG WITH READING ER PHYS+CARDIAG ordered. EDMS 10:14 Chest, 2 View (pa\E\lat) Ordered. EDMS 11:12 -Influenza A&B Rapid Antigen - Nose Ordered. EDMS 11:13 Ultrasound Bilateral LE R/O DVT Ordered. EDMS 11:42 Financial registration complete. mm15 11:48 REPLACED BY [facility] Payment Agreement was scanned into [employer] and attached to record. mm15 13:21 B-Type Natiuretic Peptide Reviewed. br1 13:21 Basic Metabolic Profile Reviewed. br1 13:21 CBC with Diff Reviewed. br1 13:21 Cardiac Injury Profile Reviewed. br1 13:21 Troponin Reviewed. br1 13:21 -Influenza A&B Rapid Antigen - Nose Reviewed. br1 13:21 Chest, 2 View (pa\E\lat) Reviewed. br1 13:21 Ultrasound Bilateral LE R/O DVT Reviewed. br1 13:38 BED REQUEST+ADM ordered. EDMS 13:38 Furosemide 40 mg IVP once ordered. br1 13:58 Admission / Observation Status ordered. EDMS 13:59 2 GRAM SODIUM DIET ordered. EDMS Administered Medications: 14:03 Drug: Furosemide 40 mg [furosemide 10 mg/mL injection solution (4 mL)] Route: IVP; srm Site: right antecubital; Signatures: Dispatcher [employer] EDMS Inge Pedersen RN RN [facility] Dyana Musa RN RN [facility] Wilver Harden MD MD br1 Gurdeep Trevino [id number] The chart was reviewed and I authenticate all verbal orders and agree with the evaluation and treatment provided.Attachments: 11:48 REPLACED BY [facility] Payment Agreement mm15 Chart Complete MTDD
[2016-12-25] MEDS: WARFARIN SOD 3 MG TAB PO SCH (17:17)
[2016-12-25 22:00] VITALS: BP 122/61
[2016-12-26] MEDS: FUROSEMIDE 40 MG/4 ML VIAL (J1940) IV SCH ×2 (05:38→14:00)
[2016-12-26] MEDS: LEVOTHYROXINE 0.075 MG TAB (75 MCG) PO SCH (05:38)
[2016-12-26 06:00] VITALS: BP_SYST 117; BP_SYST 138; BP_DIAS 58; BP_DIAS 70
[2016-12-26 06:43] LABS: INR 1.74
[2016-12-26 06:50] LABS: CALCIUM LEVEL 9.5 MG/DL (8.8-10.2); CREATININE FOR GFR 1.22 MG/DL (0.55-1.02); GLOMERULAR FILTRATION RATE 44.3 (>32); MAGNESIUM LEVEL 2.1 MG/DL (1.8-2.4); POTASSIUM SERUM 4.9 MEQ/L (3.5-5.1)
[2016-12-26 06:58] LABS: BASO % 0.4 % (0.0-1.0); EOS # 0.2 K/mm3 (0.0-0.50); EOS % 2.6 % (0.0-3.0); LARGE UNSTAINED CELL # 0.2 K/mm3 (0.0-0.4); LARGE UNSTAINED CELL % 2.7 % (0.0-4.0); LYMPH # 1.5 K/mm3 (1.5-4.5); LYMPH % 25.2 % (24.0-44.0); MEAN CORPUSCULAR HGB CONC 32.6 g/dl (32.0-36.5); MEAN CORPUSCULAR VOLUME 98.2 fl (80.0-96.0); MONO # 0.4 K/mm3 (0.0-0.8); MONO % 7.5 % (0.0-5.0); NEUTROPHILS # 3.6 K/mm3 (1.8-7.7); NEUTROPHILS % 61.6 % (36.0-66.0); PLATELET COUNT, AUTOMATED 242 k/mm3 (150-450); RED CELL DISTRIBUTION WIDTH 13.9 % (11.5-14.5); WHITE BLOOD COUNT 5.8 K/mm3 (4.0-10.0)
[2016-12-26] MEDS: SPIRONOLACTONE 50 MG TAB PO SCH (08:09)
[2016-12-26] MEDS: CYANOCOBALAMIN 500 MCG TAB PO SCH (08:09)
[2016-12-26] MEDS: POTASSIUM CHLORIDE 10 MEQ SR TABLET PO SCH (08:09)
[2016-12-26] MEDS: OMEPRAZOLE 20 MG CAP PO SCH (08:10)
[2016-12-26] MEDS: MAGNESIUM OXIDE 400 MG TAB (MAG-OX) PO SCH (08:10)
[2016-12-26] MEDS: SUCRALFATE 1 GM TAB PO SCH ×2 (08:10→12:54)
--- NOTE | 2016-12-26 08:12 | ECHO ---
DATE OF PROCEDURE: 12/25/2016 REFERRING PHYSICIAN: Dr. Bowling. INDICATION: Dyspnea. The patient measures 170 cm and weighs 59 kilograms. DIMENSIONS: IVS - 1.1 LV - 5.1 LVPW - 1.1 LA - 4.9 Aorta - 3.0 IVC - 2.5 FINDINGS: The study is of very good technical quality. Left ventricle is normal size and grossly normal contractility. There appears to be some dyssynergy, I suspect, due to pacemaker driven rhythm. Overall EF estimated around 50%. The right ventricle is severely dilated and globally hypokinetic. Both atria are severely enlarged, right more than left. Aortic valve is tricuspid. It is sclerotic but has normal mobility. There are degenerative abnormalities of mitral valve with mitral annular calcification and thickening of mitral leaflet but mobility is preserved. Tricuspid valve appears grossly normal. Pulmonic valve also appears normal. There are artifacts consistent with pacemaker lead apparent in right atrium and right ventricle. No pericardial effusion is noted but left pleural effusion is seen. Inferior vena cava is dilated but collapses with respiration indicative of probably mildly elevated central venous pressure. Aortic root is normal. Aortic arch and abdominal aorta were not visualized. Doppler interrogation reveals no significant aortic stenosis and mild to moderate insufficiency. There is approximately moderate mitral insufficiency with centrally oriented MR jet suggestive of ischemic etiology. There is also severe tricuspid insufficiency. Calculated pulmonary artery pressure though is only in 40s that would correspond to moderate pulmonary hypertension. Pulmonic valve also exhibits mild insufficiency. Evaluation of diastolic function is inconclusive. I suspect that the patient is in atrial fibrillation with principally ventricularly paced rhythm. CONCLUSIONS: 1. Study is of good technical quality. 2. Normal LV size with low normal LV systolic function and dyssynchronous contraction I believe most likely due to ventricular paced rhythm. 3. Severely dilated hypokinetic right ventricle. 4. Severe biatrial enlargement. 5. Mild to moderate aortic insufficiency. 6. Moderate mitral insufficiency. 7. Severe tricuspid insufficiency. 8. Elevated central venous pressure and probably moderate pulmonary hypertension. 9. Left pleural effusion. COMMENT: SBE prophylaxis is not recommended. Overall study most consistent with diastolic congestive heart failure with contributing valvular heart disease. I cannot rule out that the severity of TR is at least in part due to presence of pacing electrode. MTDD
[2016-12-26 14:00] VITALS: BP 152/70
[2016-12-26] MEDS ORDERED: WARFARIN SOD 3 MG TAB PO SCH (17:00)
== END 2016-12-26 16:57 | disposition home health service (06) | DRG 291 ==
LOC: M ED 10:05 → M ED INP 13:42 → M MSPAV 15:12
PROVIDERS: ADMIT Internal Medicine Nephrology; ATTEND Family Medicine
DX: I13.0 Hypertensive heart and chronic kidney disease with heart failure and stage 1 through stage 4 chronic kidney disease, or unspecified chronic kidney disease (principal); I50.33 Acute on chronic diastolic (congestive) heart failure; E87.3 Alkalosis; I48.2 Chronic atrial fibrillation; E78.5 Hyperlipidemia, unspecified; N18.3 Chronic kidney disease, stage 3 (moderate); E03.9 Hypothyroidism, unspecified; E83.42 Hypomagnesemia; I27.2 Other secondary pulmonary hypertension; Z86.73 Personal history of transient ischemic attack (TIA), and cerebral infarction without residual deficits; Z90.710 Acquired absence of both cervix and uterus; Z95.0 Presence of cardiac pacemaker; Z95.5 Presence of coronary angioplasty implant and graft; Z79.01 Long term (current) use of anticoagulants; Z79.899 Other long term (current) drug therapy

== ENCOUNTER → 2016-12-26 | Outpatient (REF) | payer MEDICARE | LOC: M SFHCPLAZ 09:40 | PROVIDERS: ATTEND Family Medicine | DX: I50.30 Unspecified diastolic (congestive) heart failure (principal); I48.91 Unspecified atrial fibrillation; Z79.01 Long term (current) use of anticoagulants; Z53.9 Procedure and treatment not carried out, unspecified reason ==

== ENCOUNTER → 2016-12-30 | Outpatient (REF) | payer MEDICARE ==
[2016-12-30 16:09] LABS: INR 1.58
[2016-12-30 16:17] LABS: CALCIUM LEVEL 9.5 MG/DL (8.8-10.2); CREATININE FOR GFR 1.4 MG/DL (0.55-1.02); GLOMERULAR FILTRATION RATE 37.8 (>32); POTASSIUM SERUM 4.8 MEQ/L (3.5-5.1)
== END ==
LOC: M SHH 15:41
PROVIDERS: ATTEND Family Medicine
DX: I50.30 Unspecified diastolic (congestive) heart failure (principal); I48.91 Unspecified atrial fibrillation; Z79.01 Long term (current) use of anticoagulants

== ENCOUNTER → 2016-12-31 | Outpatient (REF) | payer MEDICARE ==
[2016-12-31 12:39] LABS: CALCIUM LEVEL 10.1 MG/DL (8.8-10.2); CREATININE FOR GFR 1.56 MG/DL (0.55-1.02); GLOMERULAR FILTRATION RATE 33.3 (>32); POTASSIUM SERUM 5.1 MEQ/L (3.5-5.1)
== END ==
LOC: M SFHCPLAZ 09:46
PROVIDERS: ATTEND Physician Assistant Medical
DX: I50.30 Unspecified diastolic (congestive) heart failure (principal); N18.3 Chronic kidney disease, stage 3 (moderate)
CPT/HCPCS: 36415; 80048; 83880; G0463

== ENCOUNTER → 2017-01-02 | Outpatient (REF) | payer MEDICARE ==
[2017-01-02 10:29] LABS: INR 1.86
== END ==
LOC: M SHH 09:59
PROVIDERS: ATTEND Physician Assistant Medical
DX: Z51.81 Encounter for therapeutic drug level monitoring (principal); Z79.01 Long term (current) use of anticoagulants

== ENCOUNTER → 2017-03-18 | Outpatient (REF) | payer MEDICARE ==
[2017-03-18 12:20] LABS: INR 2.87
[2017-03-18 12:30] LABS: ALBUMIN 3.1 GM/DL (3.2-5.2); ALBUMIN/GLOBULIN RATIO 0.86 (1.00-1.93); BILIRUBIN,TOTAL 0.4 MG/DL (0.2-1.0); CALCIUM LEVEL 8.4 MG/DL (8.8-10.2); CREATININE FOR GFR 1.17 MG/DL (0.55-1.02); FREE T4 1.26 NG/DL (0.76-1.46); GLOMERULAR FILTRATION RATE 46.4 (>32); MAGNESIUM LEVEL 1.9 MG/DL (1.8-2.4); POTASSIUM SERUM 4.4 MEQ/L (3.5-5.1); TOTAL PROTEIN 6.7 GM/DL (6.4-8.2)
[2017-03-18 12:54] LABS: BASO % 0.3 % (0.0-1.0); EOS # 0.1 K/mm3 (0.0-0.50); EOS % 1.1 % (0.0-3.0); LARGE UNSTAINED CELL # 0.1 K/mm3 (0.0-0.4); LARGE UNSTAINED CELL % 1.5 % (0.0-4.0); LYMPH # 1.9 K/mm3 (1.5-4.5); LYMPH % 22.9 % (24.0-44.0); MEAN CORPUSCULAR HEMOGLOBIN 32.1 pg (27.0-33.0); MEAN CORPUSCULAR HGB CONC 31.8 g/dl (32.0-36.5); MEAN CORPUSCULAR VOLUME 100.8 fl (80.0-96.0); MONO # 0.4 K/mm3 (0.0-0.8); MONO % 5.4 % (0.0-5.0); NEUTROPHILS # 5.2 K/mm3 (1.8-7.7); NEUTROPHILS % 68.9 % (36.0-66.0); PLATELET COUNT, AUTOMATED 263 k/mm3 (150-450); RED CELL DISTRIBUTION WIDTH 15.1 % (11.5-14.5); WHITE BLOOD COUNT 7.6 K/mm3 (4.0-10.0)
== END ==
LOC: M SFHCPLAZ 09:33
PROVIDERS: ATTEND Family Medicine
DX: N18.3 Chronic kidney disease, stage 3 (moderate) (principal); E03.9 Hypothyroidism, unspecified; I48.91 Unspecified atrial fibrillation; E55.9 Vitamin D deficiency, unspecified

== ENCOUNTER → 2017-07-15 | Outpatient (REF) | payer MEDICARE ==
[~2017-07-15] MED LIST changes: +VITA1CAP40 PO; -VITA50003 PO
[2017-07-15 12:08] LABS: BASO % 0.3 % (0.0-1.0); EOS # 0.1 K/mm3 (0.0-0.50); LARGE UNSTAINED CELL # 0.3 K/mm3 (0.0-0.4); LARGE UNSTAINED CELL % 3.2 % (0.0-4.0); LYMPH # 2.6 K/mm3 (1.5-4.5); LYMPH % 33.3 % (24.0-44.0); MEAN CORPUSCULAR HEMOGLOBIN 33.3 pg (27.0-33.0); MEAN CORPUSCULAR HGB CONC 33.1 g/dl (32.0-36.5); MEAN CORPUSCULAR VOLUME 100.7 fl (80.0-96.0); MONO # 0.5 K/mm3 (0.0-0.8); MONO % 6.3 % (0.0-5.0); NEUTROPHILS # 4.4 K/mm3 (1.8-7.7); NEUTROPHILS % 55.9 % (36.0-66.0); PLATELET COUNT, AUTOMATED 248 k/mm3 (150-450); RED CELL DISTRIBUTION WIDTH 15.1 % (11.5-14.5); WHITE BLOOD COUNT 7.8 K/mm3 (4.0-10.0)
[2017-07-15 12:15] LABS: INR 2.23
[2017-07-15 13:01] LABS: ALBUMIN 3.5 GM/DL (3.2-5.2); ALBUMIN/GLOBULIN RATIO 0.83 (1.00-1.93); BILIRUBIN,TOTAL 0.6 MG/DL (0.2-1.0); CALCIUM LEVEL 9.6 MG/DL (8.8-10.2); CREATININE FOR GFR 1.67 MG/DL (0.55-1.02); GLOMERULAR FILTRATION RATE 30.8 (>32); PERCENT SATURATION 29.7 % (13.2-45.0); POTASSIUM SERUM 4.4 MEQ/L (3.5-5.1); TOTAL PROTEIN 7.7 GM/DL (6.4-8.2)
[2017-07-15 14:16] LABS: PRETREATED FOLATE FOR RBCFOL > 24.0 NG/ML
== END ==
LOC: M SFHCPLAZ 09:43
PROVIDERS: ATTEND Family Medicine
DX: E53.8 Deficiency of other specified B group vitamins (principal); R73.01 Impaired fasting glucose; I48.91 Unspecified atrial fibrillation